=== PATIENT | female | born 1990 | race Caucasian/White ===

== ENCOUNTER 2022-11-11 11:50 | Emergency (ER) | payer MEDICAID, SELFPAY ==
[2022-11-11 12:00] VITALS: BP 118/64; PULSE 83; RESP 16; TEMP 36.2; O2SAT 95; BMI 24.5
--- NOTE | 2022-11-11 12:44 | ED_ITS ---
HPI - Nausea/Vomiting/Diarrhea General Date Seen: 11/11/22 Chief complaint: Nausea/Vomiting Stated complaint: Vomiting Time Seen by Provider: 11/11/22 11:55 Source: patient and family Mode of arrival: ambulatory Limitations: no limitations History of Present Illness HPI Narrative: Patient is seen with her significant other, with a history of a vomiting, no diarrhea, the vomiting is anywhere from 2-3 times per day whenever she eats. She is now 2 weeks into her , with her last normal menstrual period October 17. She notes that she has a slight headache also with vomiting, did not come on abruptly, but was slow. She is unable to take acetaminophen for her vomiting and headache, as this she is allergic to Pariacetamol. She is a 3 spontaneous vaginal delivery she did have vomiting with other pregnancies. These were in [place], she has recently moved to the area in the last year. Of currently in [place], she denies any fevers chills sore throat dysuria frequency, photophobia, neck pain or stiffness, The headache is bitemporal, she is not photophobic, with this MD elicited complaint: nausea, vomiting and other (Headache) Onset (ago): week(s) Description of vomiting: watery Associated nausea: Yes Associated abdominal pain: No Severity: moderate Exacerbating factors: eating Relieving factors: none Associated symptoms: headaches and nausea/vomiting Treatment prior to arrival: none Related Data Home Medications Medication Instructions Recorded Confirmed No Known Home Medications 11/11/22 11/11/22 Allergies Allergy/AdvReac Type Severity Reaction Status Date / Time No Known Drug Allergies Allergy Verified 11/11/22 12:10 Review of Systems Status of ROS: Reports: 10 or more systems reviewed and unremarkable except as noted in History and below GI: Reports: nausea PFSH PFSH Social History Smoking Status: Never smoker Do you use any of these nicotine containing products: None How often do you have a drink containing alcohol: never AUDIT-C Alcohol total score: 0 Non-prescribed substance use: denies use Exam Narrative: Exam Narrative: Patient is seen in room 5, with her partner and the petroleum inspector supervisor. She appears to be in no distress at all sitting up communicating normally nontoxic. Pupils are equal round reactive to light her fundi are normal her TMs are normal her neck is supple full range of motion is listed, with no meningismus. No lymphadenopathy anterior posterior chains her chest is clear heart sounds are normal, her abdomen is soft nongravid, she has an easily reducible umbilical hernia. Bowel sounds are normal there is no organomegaly. No CVA tenderness, moves all extremities independently well is able to walk in the room normally. And she is speaking Italian normally as far as I can see. Const: Vital Signs, click to edit/add: Vital Signs - 24 hr 11/11/22 12:00 Temperature 97.1 F L Pulse Rate [Left P ulse Oximeter] 83 Respiratory Rate 16 Blood Pressure [Le ft Upper Arm] 118/64 Pulse Oximetry 95 Oxygen Delivery Me thod Room Air Documenting provider has reviewed patient's vital signs: yes Course Course Hospital Course: Patient reports of vomiting a slight headache, headache came on after she had vomited 3 times a day for 10 days, not getting a feeling this is the worse headache of her life, or it is sudden onset. Is confounded by her allergy to acetaminophen, which causes a rash, would recommend that we try IV fluids Zofran check some labs, she is 3 weeks by her last normal menstrual period. She will need follow-up with OBGYN. Reevaluation(s) Reevaluation #1: Patient reports improvement we will give her a small supply Zofran along with Keflex, as most common cause would be the E coli, follow-up with the primary care OBGYN. Is suggested. Time: 14:56 Vital Signs Vital signs: Initial Vital Signs Temperature 97.1 F L 11/11/22 12:00 Temperature Source Temporal Artery Scan 11/11/22 12:00 Pulse Rate 83 11/11/22 12:00 Pulse Rhythm 11/11/22 12:00 Respiratory Rate 16 11/11/22 12:00 Blood Pressure 118/64 11/11/22 12:00 Blood Pressure Mean 82 11/11/22 12:00 Blood Pressure Position Sitting 11/11/22 12:00 Pulse Oximetry 95 11/11/22 12:00 Oxygen Delivery Method 11/11/22 12:00 Vital Signs Temperature 97.1 F L 11/11/22 12:00 Pulse Rate 83 11/11/22 12:00 Respiratory Rate 16 11/11/22 12:00 Blood Pressure 118/64 11/11/22 12:00 Pulse Oximetry 95 11/11/22 12:00 Oxygen Delivery Method 11/11/22 12:00 Temperature 97.1 F L 11/11/22 12:00 Pulse Rate 83 11/11/22 12:00 Respiratory Rate 16 11/11/22 12:00 Blood Pressure 118/64 11/11/22 12:00 Pulse Oximetry 95 11/11/22 12:00 Oxygen Delivery Method 11/11/22 12:00 MDM - Nausea/Vomiting/Diarrhea MDM Narrative Medical decision making narrative: Differential diagnosis includes but is not limited to viral gastroenteritis, drug food poisoning, pyloric stenosis, gastritis, pancreatitis, hepatitis, cholecystitis, appendicitis, bowel obstruction, hyperemesis, cyclic vomiting syndrome, bulimia nervosa, migraine headache, motion sickness and medication side effect. These include the life threatening complications of appendicitis, drug food poisoning and bowel obstruction. Lab Data Attestation: I reviewed the patient's lab results. Labs: Lab Results 11/11/22 11/11/22 11/11/22 Range/Units 12:29 12:29 12:52 WBC 9.62 (4.50-11.00) K/uL RBC 4.33 (4.00-5.20) m/uL Hgb 13.9 (12.0-16.0) gm/dL Hct 41.1 (33.0-51.0) % MCV 95 (80-100) fL MCH 32 (26-34) pg MCHC 34 (32-36) gm/dL RDW Coeff of Elizabeth 11.7 (11.5-15.5) % Plt Count 308 (140-440) K/uL Neut % (Auto) 75.8 H (42.0-72.0) % Lymph % (Auto) 17.0 L (20-44) % [place] % (Auto) 5.8 (0.0-11.0) % Eos % (Auto) 0.9 (0.0-7.0) % Baso % (Auto) 0.3 (0.0-3.0) % Neut # (Auto) 7.30 H (1.7-7.0) K/uL Lymph # (Auto) 1.60 (0.90-2.90) K/uL [place] # (Auto) 0.60 (0.00-0.90) K/UL Eos # (Auto) 0.09 (0.00-0.50) K/uL Baso # (Auto) 0.03 (0.00-0.30) K/uL Sodium (135-149) mmol/L Potassium (3.6-5.1) mmol/L Chloride (96-114) mmol/L Carbon Dioxide (20-32) mmol/L BUN (5-24) mg/dL Creatinine (0.5-1.5) mg/dL Estimated Creat Clear Estimated GFR ml/min Glucose (60-115) mg/dL Calcium (8.4-10.6) mg/dL Total Bilirubin (0.1-1.5) mg/dL Direct Bilirubin (0.0-0.5) mg/dL AST (12-35) U/L ALT (4-35) U/L Alkaline Phosphatase (40-150) U/L Total Protein (6.0-8.3) g/dL Albumin (3.3-5.0) g/dL Urine Color Yellow (Yellow) Urine Appearance Clear (Clear) Urine pH 6.0 (5.0-8.5) Ur Specific Sevier >= 1.030 (1.000-1.030) Urine Protein 1+ A (Negative) Urine Glucose (UA) Negative (Negative) Urine Ketones Negative (Negative) Urine Blood Trace-intact A (Negative) Urine Nitrite Negative (Negative) Urine Bilirubin Negative (Negative) Urine Urobilinogen 1.0 (0.2-1.0) Ur Leukocyte Esterase 1+ A (Negative) Urine RBC 2-5 A (0-2) Urine WBC 5-10 A (0-5) Ur Squamous Epith Cells Many A (None-Few) Urine Bacteria Moderate A (None) Urine Yeast Moderate A (None) SARS-CoV-2 (PCR) Negative SARS-CoV-2 (Negative) Influenza Type A (PCR) Negative PCR FLU A (Negative) Influenza Type B (PCR) Negative PCR FLU B (Negative) RSV (PCR) Negative PCR RSV (Negative) 11/11/22 Range/Units 12:52 WBC (4.50-11.00) K/uL RBC (4.00-5.20) m/uL Hgb (12.0-16.0) gm/dL Hct (33.0-51.0) % MCV (80-100) fL MCH (26-34) pg MCHC (32-36) gm/dL RDW Coeff of Elizabeth (11.5-15.5) % Plt Count (140-440) K/uL Neut % (Auto) (42.0-72.0) % Lymph % (Auto) (20-44) % [place] % (Auto) (0.0-11.0) % Eos % (Auto) (0.0-7.0) % Baso % (Auto) (0.0-3.0) % Neut # (Auto) (1.7-7.0) K/uL Lymph # (Auto) (0.90-2.90) K/uL [place] # (Auto) (0.00-0.90) K/UL Eos # (Auto) (0.00-0.50) K/uL Baso # (Auto) (0.00-0.30) K/uL Sodium 137 (135-149) mmol/L Potassium 3.8 (3.6-5.1) mmol/L Chloride 107 (96-114) mmol/L Carbon Dioxide 22 (20-32) mmol/L BUN 8 (5-24) mg/dL Creatinine 0.5 (0.5-1.5) mg/dL Estimated Creat Clear 124.15 Estimated GFR 129 ml/min Glucose 94 (60-115) mg/dL Calcium 8.9 (8.4-10.6) mg/dL Total Bilirubin 0.8 (0.1-1.5) mg/dL Direct Bilirubin 0.1 (0.0-0.5) mg/dL AST 28 (12-35) U/L ALT 39 H (4-35) U/L Alkaline Phosphatase 47 (40-150) U/L Total Protein 7.6 (6.0-8.3) g/dL Albumin 4.3 (3.3-5.0) g/dL Urine Color (Yellow) Urine Appearance (Clear) Urine pH (5.0-8.5) Ur Specific Sevier (1.000-1.030) Urine Protein (Negative) Urine Glucose (UA) (Negative) Urine Ketones (Negative) Urine Blood (Negative) Urine Nitrite (Negative) Urine Bilirubin (Negative) Urine Urobilinogen (0.2-1.0) Ur Leukocyte Esterase (Negative) Urine RBC (0-2) Urine WBC (0-5) Ur Squamous Epith Cells (None-Few) Urine Bacteria (None) Urine Yeast (None) SARS-CoV-2 (PCR) (Negative) Influenza Type A (PCR) (Negative) Influenza Type B (PCR) (Negative) RSV (PCR) (Negative) Discharge Plan Discharge Clinical Impression: UTI (urinary tract infection), Hyperemesis gravidarum, Headache Patient Disposition: Home, Self-Care Condition: Stable Instructions: Hyperemesis Gravidarum (ED), Urinary Tract Infection in Women (DC), General Headache (ED) Additional Instructions: Home rest prescription given for Zofran along with fluids, we will also treat the bladder infection, with Keflex, this should help both conditions, follow-up with primary care/furnace installer for further care. Return here if it worsening headache inability keep down fluids fevers chills or other issue. Prescriptions: No Action No Known Home Medications Stand Alone Forms: [employer] Info Instructions
[2022-11-11 12:45] LABS: Appearance Urine Clear (Clear); Bilirubin Urine Negative (Negative); Blood Urine Trace-intact (Negative); Color Urine Yellow (Yellow); Glucose Urine Negative (Negative); Ketones Urine Negative (Negative); Leukocyte Esterase Urine 1+ (Negative); Nitrite Urine Negative (Negative); Protein Urine 1+ (Negative); Specific Gravity Urine >= 1.030 (1.000-1.030)
[2022-11-11 13:05] LABS: Bacteria Urine Moderate; Squamous Epithelial Cell Urine Many (None-Few)
[2022-11-11] MEDS: ONDANSETRON 2 MG/ML inj 4 MG IVP (13:11)
[2022-11-11] MEDS: 0.9 % SODIUM CHLORIDE 1000 ml 1,000 ML IV ×2 (13:11→13:57)
[2022-11-11 13:12] LABS: Albumin* 4.3 g/dL (3.3-5.0); Chloride* 107 mmol/L (96-114); Sodium* 137 mmol/L (135-149)
[2022-11-11 13:13] LABS: Potassium* 3.8 mmol/L (3.6-5.1)
[2022-11-11 13:15] LABS: Alanine Aminotransferase* 39 U/L (4-35); Alkaline Phosphatase* 47 U/L (40-150); Aspartate Amino Transferase* 28 U/L (12-35); Bilirubin Direct* 0.1 mg/dL (0.0-0.5); Bilirubin Total* 0.8 mg/dL (0.1-1.5); Blood Urea Nitrogen* 8 mg/dL (5-24); Calcium* 8.9 mg/dL (8.4-10.6); Carbon Dioxide* 22 mmol/L (20-32); Creatinine* 0.5 mg/dL (0.5-1.5); Est. Creatinine Clearance* 124.15; Estimated Glomerular Filt Rate 129 ml/min; Glucose* 94 mg/dL (60-115); Total Protein* 7.6 g/dL (6.0-8.3)
[2022-11-11 13:18] LABS: Basophils Absolute Auto 0.03 K/uL (0.00-0.30); Basophils Percent Auto 0.3 % (0.0-3.0); Eosinophils Absolute Auto 0.09 K/uL (0.00-0.50); Eosinophils Percent Auto 0.9 % (0.0-7.0); Hematocrit 41.1 % (33.0-51.0); Hemoglobin* 13.9 gm/dL (12.0-16.0); Immature Granulocytes Abs Auto 0.02 K/uL (0.00-0.30); Immature Granulocytes Pct Auto 0.2 %; Mean Corpuscular HGB Conc 34 gm/dL (32-36); Mean Corpuscular Hemoglobin 32 pg (26-34); Mean Corpuscular Volume 95 fL (80-100); Monocytes Percent Auto 5.8 % (0.0-11.0); Neutrophils Percent Auto 75.8 % (42.0-72.0); Platelet Count* 308 K/uL (140-440); RDW Coefficient of Variation % 11.7 % (11.5-15.5); Red Blood Count 4.33 m/uL (4.00-5.20); White Blood Count* 9.62 K/uL (4.50-11.00)
[2022-11-11 13:19] LABS: Slide Review Reflex No
[2022-11-11 13:20] LABS: PCR FLU A Negative PCR FLU A (Negative); PCR FLU B Negative PCR FLU B (Negative); PCR RSV Negative PCR RSV (Negative)
[2022-11-11 13:27] LABS: SARS PCR* Negative SARS-CoV-2 (Negative)
== END 2022-11-11 14:51 | disposition home or self-care (01) ==
PROVIDERS: Emergency Provider Family Medicine
DX: N39.0 Urinary tract infection, site not specified (principal); O21.0 Mild hyperemesis gravidarum; R51.9 Headache, unspecified
CPT/HCPCS: 36415; 80048; 80076; 81001; 85025; 87086; 87502; 87634; 87635; 96374; 99283; 99284; J2405; J7030

== ENCOUNTER 2022-11-23 18:33 | Emergency (ER) | payer MEDICAID, SELFPAY ==
[2022-11-23 19:10] VITALS: BP 104/61; PULSE 60; RESP 14; TEMP 37.1; O2SAT 98; BMI 27.3
--- NOTE | 2022-11-23 20:05 | ED.HA ---
HPI - Headache General Chief Complaint: Headache/Migraine Stated Complaint: Head pain Time Seen by Provider: 11/23/22 19:54 History of Present Illness HPI Narrative: Pt is a 32 year old woman who is 8 weeks who presents with several hours of a bitemperal headache. She has no neurological symptoms. No fevers or chills. Pt has no abd pain or vaginal discharge. Pt otherwise is tolerating her well although she was in the ED 2 weeks ago for similar reasons. Pt had largely unremarkable CBC and CMP and did well with IV saline and zofran. Pt has a hisotory of hyperemesis gravidarum. Pt states she just needs help with the headache and really has no other concerns. No vomiting. Related Data Home Medications Medication Instructions Recorded Confirmed No Known Home Medications 11/11/22 11/11/22 Allergies Allergy/AdvReac Type Severity Reaction Status Date / Time acetaminophen AdvReac Unknown Rash Verified 11/23/22 19:15 Review of Systems Status of ROS: Reports: 10 or more systems reviewed and unremarkable except as noted in History and below PFSH PFSH Social History Smoking Status: Former smoker Do you use any of these nicotine containing products: None How often do you have a drink containing alcohol: monthly or less AUDIT-C Alcohol total score: 1 Non-prescribed substance use: denies use Exam Narrative: Exam Narrative: EXAM GENERAL: Patient appears comfortable and well. EYES: No scleral icterus. ENT: Tympanic membranes and oropharynx normal. THYROID: no thyroid nodules or thyromegaly. LYMPH: No supraclavicular or cervical lymphadenopathy. SKIN: Visible skin seen during exam normal or with benign process only. EXT: No dependent lower extremity pedal edema. HEART: Regular rate and rhythm with no murmurs, rubs, or gallops. LUNGS: Clear to auscultation bilaterally with no crackles or wheezes. ABD: Soft, non tender, non distended. PSYCH: Good eye contact, speech is not pressured. Const: Vital Signs, click to edit/add: Vital Signs - 24 hr 11/23/22 19:10 Temperature 98.8 F Pulse Rate [Pulse Oximeter] 60 Respiratory Rate 14 Blood Pressure [Ri ght Upper Arm] 104/61 Pulse Oximetry 98 Oxygen Delivery Me thod Room Air Course Course Hospital Course: Saline lock placed. Normal saline and Zofran given. Previous labs reviewed. She was treated for a UTI at her last visit. Pt has no urinary symptoms at this time. Reevaluation(s) Reevaluation #1: Pt feels much better after the IV fluid and Zofran. She would like to go home. Time: 21:18 Vital Signs Vital signs: Initial Vital Signs Temperature 98.8 F 11/23/22 19:10 Temperature Source Temporal Artery Scan 11/23/22 19:10 Pulse Rate 60 11/23/22 19:10 Pulse Rhythm 11/23/22 19:10 Respiratory Rate 14 11/23/22 19:10 Blood Pressure 104/61 11/23/22 19:10 Blood Pressure Mean 75 11/23/22 19:10 Blood Pressure Position Sitting 11/23/22 19:10 Pulse Oximetry 98 11/23/22 19:10 Oxygen Delivery Method 11/23/22 19:10 Vital Signs Temperature 98.8 F 11/23/22 19:10 Pulse Rate 60 11/23/22 19:10 Respiratory Rate 14 11/23/22 19:10 Blood Pressure 104/61 11/23/22 19:10 Pulse Oximetry 98 11/23/22 19:10 Oxygen Delivery Method 11/23/22 19:10 Temperature 98.8 F 11/23/22 19:10 Pulse Rate 60 11/23/22 19:10 Respiratory Rate 14 11/23/22 19:10 Blood Pressure 104/61 11/23/22 19:10 Pulse Oximetry 98 11/23/22 19:10 Oxygen Delivery Method 11/23/22 19:10 MDM - Headache MDM Narrative Medical decision making narrative: Pt is a woman who presents with headache and nausea. No other significant symptoms. Exam and vitals are normal. Pt's symptoms respond to IV fluids and Zofran. I did recommend a vitamin and follow up [facility]. Differential Diagnosis Differential diagnosis: Likely migraine, tension headache, subarachnoid hemorrhage, headache, meningitis and sinusitis Discharge Plan Discharge Clinical Impression: Headache Condition: Stable Instructions: Acute Headache (ED) Additional Instructions: Begin Vitamin Follow up with Dr. Flor. Activity Level: No Restrictions Discharge Diet: Regular Prescriptions: No Action No Known Home Medications Follow Up/Referrals: Provider,Not a Local [Primary Care Provider] - Stand Alone Forms: [employer] Info Instructions
[2022-11-23] MEDS: 0.9 % SODIUM CHLORIDE 1000 ml 1,000 ML IV (20:27)
[2022-11-23] MEDS: ONDANSETRON 2 MG/ML inj 4 MG IVP (20:28)
== END 2022-11-23 22:10 | disposition home or self-care (01) ==
PROVIDERS: Emergency Provider Internal Medicine
DX: R51.9 Headache, unspecified (principal); Z3A.08 8 weeks gestation of pregnancy
CPT/HCPCS: 96374; 99283; J2405; J7030

== ENCOUNTER 2022-12-06 22:07 | Emergency (ER) | payer MEDICAID, SELFPAY ==
[2022-12-06 22:14] VITALS: BP 116/75; PULSE 55; RESP 16; TEMP 36.2; O2SAT 98; BMI 23.0
[2022-12-06] MEDS: PANTOPRAZOLE SODIUM 40 MG INJ IVP (23:11)
[2022-12-06] MEDS: 0.9 % SODIUM CHLORIDE 1000 ml 1,000 ML IV (23:11)
--- NOTE | 2022-12-06 23:17 | ED_ITS ---
HPI - General Adult General Chief complaint: Abdominal Pain Stated complaint: headache,vomitting Time Seen by Provider: 12/06/22 22:11 Source: patient and family Mode of arrival: ambulatory History of Present Illness HPI narrative: Patient presents for her 3rd visit in the past month for headache to the emergency department. She reports that she is allergic to Tylenol, it causes rash. She is a , unsure of her gestational age but estimates that she is about 3 months . She denies struggling with headaches in her prior pregnancies. Headache is located in the occipital region, no neck pain, no vision changes, no neurological changes no history of migraines. She states that the headache has been causing nausea. It has been reported that she has had nausea and vomiting in prior notes as well. She states that she started having a slight amount of blood-tinged vomit. reports that she can swallow her own saliva is very nauseated. She is not taking any stomach acid medicine like omeprazole or ranitidine. Admits to poor oral intake. No fever, no trauma or injury. She reports some mild left lower periumbilical abdominal pain. Last bowel movement was today, no blood in stools. Does not use any anticoagulants. No vaginal discharge, no vaginal bleeding. No dysuria. Has not tried any interventions to help with her stomach or headache pain. She does have an upcoming OB visit in 12 days. Past medical history reviewed from prior notes, no major long-term health problems. Allergy years to Tylenol. Denies prior surgeries. Her only current home medication is folic acid. Socially no tobacco, no pertinent travel. ROS notable for the HEENT and GI symptoms as described above, otherwise denies times 12 systems. Related Data Home Medications Medication Instructions Recorded Confirmed folic acid 400 mcg tablet 400 mcg PO DAILY 12/06/22 12/06/22 Previous Rx's Medication Instructions Recorded omeprazole 20 mg capsule,delayed 20 mg PO DAILY #30 caps 12/07/22 release Allergies Allergy/AdvReac Type Severity Reaction Status Date / Time acetaminophen AdvReac Unknown Rash Verified 11/23/22 19:15 PFSH [facility] Social History Smoking Status: Never smoker Do you use any of these nicotine containing products: None How often do you have a drink containing alcohol: never AUDIT-C Alcohol total score: 0 Non-prescribed substance use: denies use Exam Const: Vital Signs, click to edit/add: Vital Signs - 24 hr 12/06/22 22:14 Temperature 97.1 F L Pulse Rate [Right Pulse Oximeter] 55 L Respiratory Rate 16 Blood Pressure [Ri ght Upper Arm] 116/75 Pulse Oximetry 98 Oxygen Delivery Me thod Room Air Documenting provider has reviewed patient's vital signs: yes Common normals: no apparent distress and alert General appearance: cooperative Orientation/consciousness: Yes awake Other: She is very vague in answering her questions, tries to answer for her when she appears too fatigued to answer. She appears well-nourished and well- hydrated. No obvious signs of outward trauma. HENMT: Common normals: normocephalic and head/scalp atraumatic Head and scalp: normocephalic and atraumatic Mouth: oral and palatal mucosa normal Throat: posterior oropharynx normal Eye: Common normals: EOMs intact bilaterally and conjunctivae normal Gen eral eye: normal appearance of both eyes Conjunctiva: conjunctiva(e) normal Neck & C-Spine: Common normals: full ROM, no lymphadenopathy and no meningeal signs Resp: Common normals: normal respiratory effort, no use of accessory muscles and clear to auscultation bilaterally Effort & inspection: able to speak in complete sentences Auscultation: clear to auscultation bilaterally Cardio: Common normals: regular rate, regular rhythm, S1 normal heart sound and S2 normal heart sound Rate: regular rate Rhythm: regular rhythm Heart sounds: S1 normal and S2 normal GI: Other: Abdomen is gravid, fundal height just palpable above the pubic brim. It is nontender fundus. There is a slight umbilical hernia but no incarceration. Bowel sounds are normoactive in all 4 quadrants. No mass, no hepatospl enomegaly. Extremity: Common normals: normal to inspection and no pedal edema Neuro: Sensorium/orientation: awake and alert Meningeal signs: no meningeal signs Motor exam: strength 5/5 throughout and no tremor noted Psych: Appearance: grossly normal Attitude: withdrawn Mood and affect: flat affect Insight: fair Judgement: fair Skin: Common normals: no rashes or lesions noted General skin exam: no rashes or lesions noted Course Vital Signs Vital signs: Initial Vital Signs Temperature 97.1 F L 12/06/22 22:14 Temperature Source Temporal Artery Scan 12/06/22 22:14 Pulse Rate 55 L 12/06/22 22:14 Pulse Rhythm 12/06/22 22:14 Respiratory Rate 16 12/06/22 22:14 Blood Pressure 116/75 12/06/22 22:14 Blood Pressure Mean 88 12/06/22 22:14 Pulse Oximetry 98 12/06/22 22:14 Oxygen Delivery Method 12/06/22 22:14 Vital Signs Temperature 97.1 F L 12/06/22 22:14 Pulse Rate 55 L 12/06/22 22:14 Respiratory Rate 16 12/06/22 22:14 Blood Pressure 116/75 12/06/22 22:14 Pulse Oximetry 98 12/06/22 22:14 Oxygen Delivery Method 12/06/22 22:14 Temperature 97.1 F L 12/06/22 22:14 Pulse Rate 55 L 12/06/22 22:14 Respiratory Rate 16 12/06/22 22:14 Blood Pressure 116/75 12/06/22 22:14 Pulse Oximetry 98 12/06/22 22:14 Oxygen Delivery Method 12/06/22 22:14 Medical Decision Making MDM Narrative Medical decision making narrative: Prior notes reviewed. Patient demonstrates spitting up clear saliva in the exam, no bilious retching. There is a scant amount of slightly blood-tinged mucus see material in an emesis bag. No blood clots, no persistent bleeding. Counseled patient that there are not a lot of great options for pain control if she is allergic to Tylenol at this stage of . Recommended a L of IV fluid, a trial of Reglan answer Protonix for her stomach. If she tolerates this well, she could potentially discharge on a low dose of Flexeril. Encouraged her to make a sooner follow-up appointment with her Ob provider to discuss the long- term plan. She will need omeprazole for at least the next couple of weeks due to the blood-tinged emesis. If persistent bleeding, may need an endoscopy. Update: Patient is still spitting out her saliva but has not demonstrated any vomiting in the 2 hours that she has been here. After fluids, she does report some improvement in her headache. An obviously she is no longer vomiting. We discussed long-term plans including restarting the Zofran that was working well for her. She needs to follow up with her obstetrical provider if she continues to have problems. Because she had the slight amount of blood-tinged vomit, I would like for her to be on a proton pump inhibitor for 2 weeks. This was discussed with her and a prescription is provided. Zofran from [place] [facility] given. May take as soon as she gets home if her nausea is not controlled by the Reglan. All questions answered, video separating machine operator used. Alarm symptoms that would warrant repeat evaluation were reviewed with patient and significant other. Discharge Plan Discharge Clinical Impression: Nausea and vomiting during , Headache in Patient Disposition: Home w/ Parent or Adult Condition: Improved Instructions: Nausea and Vomiting in (ED) Additional Instructions: I am glad that the headache is feeling a little better after the medication and fluids. It will take a couple of hours to get full effect. I believe that combatting your nausea and vomiting will help your headache the most. If you get dehydrated, your headache will worsen. You were given a medicine called Reglan and IV fluids as well as the stomach acid medicine in the emergency department. I will also give you another medication for nausea which is known as Zofran. You have been given this previously as well. I will give you a limited supply from the vending machine in the lobby for [employer], you may take more as soon as you get home if you are still feeling nauseated. You may take 3 times a day as needed for nausea. If you need more, you need to call your Ob provider for this. Because you had a little bit of blood tinge to the vomit, I do recommend that you take a stomach acid medicine once daily for the next couple of weeks. You may stay on it longer as it is determined to be safe in if you need to. I am hoping that you feel better in a few weeks as you will be at a later stage in your . Please talk to your Ob provider if you continue to have difficulties. Me alegro de que el dolor de luis alfredo se sienta un poco mejor despu?s de la medi caci?n y los l?quidos. Tardar? un par de horas en obtener el efecto completo. Creo que combatir las n?useas y los v?mitos ayudar? m?s a tu dolor de luis alfredo. Si te deshidratas, tu dolor de luis alfredo empeorar?. Le dieron un medicamento llamado Reglan y l?quidos intravenosos, as? osvaldo tambi?n el medicamento para el ?cido estomacal en el departamento de emergencias. Tambi?n le izaiah? otro medicamento para las n?useas que se conoce osvaldo Zofran. Tambi?n se te robin dado esto anteriormente. Le izaiah? un suministro limitado de la m?quina expendedora en el vest?bulo para esta noche, puede juan antonio m?s hebert pronto osvaldo llegue a casa si todav?a siente n?useas. Puede juan antonio 3 veces al d?a seg?n sea necesario para las n?useas. Si necesita m?s, debe llamar a locke proveedor de Ob para esto. Debido a que ten?a un poco de bernice en el v?bruce, le recomiendo que tome un medicamento para el ?cido estomacal mary kate vez al d?a lisa las pr?ximas dos semanas. Puede permanecer m?s tiempo, ya que se determina que es seguro lisa el embarazo si es necesario. Espero que se sienta mejor en unas pocas semanas, ya que estar? en mary kate etapa posterior de locke embarazo. Hable con locke proveedor de obstetricia si contin?a teniendo dificultades. Activity Level: No Restrictions Discharge Diet: Regular Prescriptions: New omeprazole 20 mg capsule,delayed release(DR/EC) 20 mg PO DAILY Qty: 30 0RF No Action folic acid 400 mcg tablet 400 mcg PO DAILY Follow Up/Referrals: Provider,Not a Local [Primary Care Provider] - Stand Alone Forms: [facility] Info Instructions
[2022-12-06] MEDS: METOCLOPRAMIDE HCL 10 MG in 0.9 % SODIUM CHLORIDE 100 ml 100 ML 306 MG IVPB (23:45)
[2022-12-07 00:37] VITALS: BP 114/62; PULSE 65; RESP 16; O2SAT 100
== END 2022-12-07 00:39 | disposition home or self-care (01) ==
PROVIDERS: Emergency Provider Family Medicine
DX: R11.2 Nausea with vomiting, unspecified (principal); R51.9 Headache, unspecified; Z3A.00 Weeks of gestation of pregnancy not specified
CPT/HCPCS: 96365; 96375; 99283; 99284; C9113; J2765; J7030

== ENCOUNTER 2023-01-22 17:15 | Emergency (ER) | payer BC, SELFPAY ==
[2023-01-22 17:18] VITALS: BP 96/59; PULSE 70; RESP 18; TEMP 36.1; O2SAT 97; BMI 26.6
[2023-01-22 17:36] LABS: Appearance Urine Clear (Clear); Bilirubin Urine Negative (Negative); Blood Urine Negative (Negative); Color Urine Yellow (Yellow); Glucose Urine Negative (Negative); Ketones Urine Negative (Negative); Leukocyte Esterase Urine 1+ (Negative); Nitrite Urine Negative (Negative); Protein Urine Negative (Negative)
[2023-01-22 17:49] LABS: RBC Urine 0-2 (0-2)
[2023-01-22 17:50] LABS: Bacteria Urine Few; Squamous Epithelial Cell Urine Few (None-Few)
--- NOTE | 2023-01-22 17:56 | ED.ABDPAIN ---
HPI - Abdominal Pain General Chief Complaint: Abdominal Pain Stated Complaint: abdominal pain (4 months ) Time Seen by Provider: 01/22/23 17:26 History of Present Illness HPI narrative: This 32-year-old female comes in reporting abdominal pain and low back pain. She is 16 weeks . She also has some nausea and vomiting but this is not new for her during this . She is taking a medicine for her nausea and vomiting. She states that she did slip in the shower a couple days ago and this may have triggered some of her symptoms which have become more notable today. She is otherwise in good health. She denies having any symptoms of dysuria. She has not had any fevers. Related Data Home Medications Medication Instructions Recorded Confirmed folic acid 400 mcg tablet 400 mcg PO DAILY 12/06/22 01/16/23 docosahexaenoic acid 200 mg mg PO 12/19/22 01/16/23 capsule ( DHA) ondansetron 4 mg disintegrating 4 mg PO Q8H 12/19/22 01/16/23 tablet Previous Rx's Medication Instructions Recorded omeprazole 20 mg capsule,delayed 20 mg PO DAILY #30 caps 12/07/22 release ondansetron 4 mg disintegrating 4 mg PO Q6H PRN nausea and 12/19/22 tablet vomiting #30 tabs prochlorperazine maleate 5 mg 5 mg PO Q6-8H PRN nausea and 12/25/22 tablet (Compazine) vomiting #30 tabs metoclopramide HCl 10 mg tablet 10 mg PO Q6H PRN headache #30 tabs 01/16/23 (Reglan) Allergies Allergy/AdvReac Type Severity Reaction Status Date / Time aspirin Allergy Intermediate Rash Verified 01/16/23 09:48 acetaminophen AdvReac Unknown Rash Verified 01/16/23 09:48 Review of Systems Status of ROS Reports: 10 or more systems reviewed and unremarkable except as noted in History and below Narrative Constitutional: No fevers, no weight gain or loss. Eyes: No discharge. No vision changes. HENT: No congestion, no sore throat, no ear pain. Cardiovascular: No chest pain, no palpitations. Respiratory: No shortness of breath, no wheezes, no cough. Gastrointestinal: Abdominal pain and back pain. Nausea with vomiting. No diarrhea. Genitourinary: No dysuria, no hematuria. Musculoskeletal: Normal range of motion. Skin: No rashes, no pruritis. Neurological: No dizziness, weakness, sensory change, speech change. Endo/Heme/Allergies: No bruising or bleeding. No polydipsia. Pysch: no suicidality, no anxiety, no insomnia. All other systems reviewed and are negative. [facility] Social History Smoking Status: Never smoker Do you use any of these nicotine containing products: None How often do you have a drink containing alcohol: never AUDIT-C Alcohol total score: 0 Non-prescribed substance use: denies use Little interest or pleasure in doing things: more than half the days Feeling down, depressed, or hopeless: several days Exam Narrative: Exam Narrative: Constitutional: Well-developed, well-nourished, no acute distress. HEENT: Normocephalic, atraumatic. Neck: Normal range of motion. Nontender. Supple. Heart: Regular. No murmurs. Normal rate. Intact distal pulses. Lungs: Clear to auscultation. No chest discomfort. No wheezes, rhonchi, or rales. Abdomen: Normal bowel sounds. Diffuse tenderness in the lower abdomen. No rebound tenderness. Genitalia: Deferred. Back: No midline tenderness. Normal range of motion. Extremities: Normal range of motion. No injury. Skin: Intact. No rash. Warm. No erythema or pallor. Neurologic: No altered sensation. No weakness. Alert and oriented. Psychiatric: No suicidality. No anxiety or depression. No insomnia. Nursing notes and vitals signs are reviewed. Const: Vital Signs, click to edit/add: Vital Signs - 24 hr 01/22/23 17:18 Temperature 97.0 F L Pulse Rate [Right Pulse Oximeter] 70 Respiratory Rate 18 Blood Pressure [Ri ght Upper Arm] 96/59 L Pulse Oximetry 97 Oxygen Delivery Me thod Room Air Course Vital Signs Vital signs: Initial Vital Signs Temperature 97.0 F L 01/22/23 17:18 Temperature Source Temporal Artery Scan 01/22/23 17:18 Pulse Rate 70 01/22/23 17:18 Respiratory Rate 18 01/22/23 17:18 Blood Pressure 96/59 L 01/22/23 17:18 Blood Pressure Mean 71 01/22/23 17:18 Blood Pressure Position Sitting 01/22/23 17:18 Pulse Oximetry 97 01/22/23 17:18 Oxygen Delivery Method Room Air 01/22/23 17:18 Vital Signs Temperature 97.0 F L 01/22/23 17:18 Pulse Rate 70 01/22/23 17:18 Respiratory Rate 18 01/22/23 17:18 Blood Pressure 96/59 L 01/22/23 17:18 Pulse Oximetry 97 01/22/23 17:18 Oxygen Delivery Method Room Air 01/22/23 17:18 Temperature 97.0 F L 01/22/23 17:18 Pulse Rate 70 01/22/23 17:18 Respiratory Rate 18 01/22/23 17:18 Blood Pressure 96/59 L 01/22/23 17:18 Pulse Oximetry 97 01/22/23 17:18 Oxygen Delivery Method Room Air 01/22/23 17:18 MDM - Abdominal Pain MDM Narrative Medical decision making narrative: This patient comes in with abdominal pain and low back pain and is 16 weeks . She did for slip in the shower a couple days ago and may have strained some muscles. I did use bedside ultrasound to see normal anatomy and activity. Additionally urinalysis shows no sign of infection. The patient is at a age of gestation in her where she may be having some ligament pain as the uterus is growing. These results are reassuring to the patient. She is okay to be discharged home and encouraged use Tylenol as needed and directed. Lab Data Labs: Lab Results 01/22/23 Range/Units 17:25 Urine Color Yellow (Yellow) Urine Appearance Clear (Clear) Urine pH 7.0 (5.0-8.5) Ur Specific [place] 1.020 (1.000-1.030) Urine Protein Negative (Negative) Urine Glucose (UA) Negative (Negative) Urine Ketones Negative (Negative) Urine Blood Negative (Negative) Urine Nitrite Negative (Negative) Urine Bilirubin Negative (Negative) Urine Urobilinogen 1.0 (0.2-1.0) Ur Leukocyte Esterase 1+ A (Negative) Urine RBC 0-2 (0-2) Urine WBC 2-5 (0-5) Ur Squamous Epith Cells Few (None-Few) Urine Bacteria Few A (None) Discharge Plan Discharge Clinical Impression: , Abdominal pain Patient Disposition: Home, Self-Care Condition: Unchanged Additional Instructions: Use Tylenol as needed and directed. Follow up with MD or return if worsening. Prescriptions: No Action metoclopramide HCl [Reglan] 10 mg tablet 10 mg PO Q6H PRN (Reason: headache) Qty: 30 2RF ondansetron 4 mg tablet,disintegrating 4 mg PO Q8H DHA 200 mg capsule PO ondansetron 4 mg tablet,disintegrating 4 mg PO Q6H PRN (Reason: nausea and vomiting) Qty: 30 2RF folic acid 400 mcg tablet 400 mcg PO DAILY omeprazole 20 mg capsule,delayed release(DR/EC) 20 mg PO DAILY Qty: 30 0RF prochlorperazine maleate [Compazine] 5 mg tablet 5 mg PO Q6-8H MDD 40mg PRN (Reason: nausea and vomiting) Qty: 30 0RF Rx Instructions: 5-10mg every 6-8hr PRN headaches and nausea. Max 40mg/day. Follow Up/Referrals: Provider,Not a Local [Primary Care Provider] - Stand Alone [facility] Inst[facility] Procedures Ultrasound Other exam #1: Anatomical areas examined: at 16 weeks gestation. Description/findings: Normal and heart activity
== END 2023-01-22 18:24 | disposition home or self-care (01) ==
PROVIDERS: Emergency Provider Emergency Medicine Emergency Medical Services
DX: R10.9 Unspecified abdominal pain (principal); Z33.1 Pregnant state, incidental; Z3A.16 16 weeks gestation of pregnancy
CPT/HCPCS: 81003; 81015; 87086; 99283; 99284

== ENCOUNTER 2023-02-06 08:16 | Outpatient (CLI) | payer BC, SELFPAY ==
--- NOTE | 2023-02-06 08:15 | CRLHL7_ITS ---
For Patients: As a result of the Century Cures Act, medical imaging exams and procedure reports are released immediately into your electronic medical record. You may view this report before your referring provider. If you have questions, please contact your health care provider. INDICATION: Evaluate anatomy. COMPARISON: 12/19/2022 TECHNIQUE: Real time thrasher scale imaging of the fetus was performed as well as color Doppler analysis of the umbilical vessels. FINDINGS: Sonographic imaging demonstrates a single living intrauterine gestation. Fetus demonstrates a regular cardiac rate of 141 beats per minute. Fetus has a longitudinal breech position. The placenta lies along the right uterine wall without evidence of placenta previa. The placental edge is located 6.8 cm from the internal cervical os. Amniotic fluid volume appears normal. Single deepest vertical pocket: 4.3 cm. The cervix is closed and measures 4.1 cm in length. The composite ultrasound gestational age is calculated at 20 weeks 2 days with an estimated sonographic due date of 06/24/2023. The estimated weight is 336 grams which lies at the 39th %. The following biometric measurements were obtained: Biparietal diameter: 4.8 cm/20 weeks 4 days 59th% Head circumference: 17.6 cm/20 weeks 1 day 33rd% Abdominal circumference: 15.4 cm/20 weeks 4 days 53rd% Femur length: 3.1 cm/19 weeks 5 days 22nd% The HC/AC ratio measures: 1.14 range (1.07-1.25) On anatomic survey, there is a normal appearance of the cerebral ventricles, cavum septi pellucidi, cisterna magna and cerebellum. The nose, lips, and facial profile appear normal. The cervical, thoracic and lumbar spine are well visualized and appear normal. There is a normal four-chamber heart view and the left and right ventricular outflow tracts appear normal. The diaphragm and stomach appear normal. The kidneys and bladder also appear normal. There is a normal three-vessel cord and cord insertion site. The four extremities appear normal. IMPRESSION: Normal OB ultrasound exam with concordance of clinical and sonographic dating. No intrinsic abnormalities noted on anatomic survey. Dictated by Musa José MD @ 02/06/2023 10:04:41 AM (Electronically Signed)
== END 2023-02-06 08:17 | disposition home or self-care (01) ==
PROVIDERS: Visit Provider Advanced Practice Midwife
DX: Z34.92 Encounter for supervision of normal pregnancy, unspecified, second trimester (principal); Z3A.20 20 weeks gestation of pregnancy
CPT/HCPCS: 76805; T1013

== ENCOUNTER 2023-03-04 15:33 | Emergency (ER) | payer BC, SELFPAY ==
[2023-03-04 15:38] VITALS: BP 98/60; PULSE 70; RESP 16; TEMP 36.2; O2SAT 97; BMI 25.2
[2023-03-04 15:59] LABS: Appearance Urine Cloudy (Clear); Bilirubin Urine Negative (Negative); Blood Urine 1+ (Negative); Color Urine Yellow (Yellow); Glucose Urine Negative (Negative); Ketones Urine Negative (Negative); Leukocyte Esterase Urine 1+ (Negative); Nitrite Urine Positive (Negative); Protein Urine 1+ (Negative); Specific Gravity Urine 1.025 (1.000-1.030); Urobilinogen Urine 0.2 (0.2-1.0)
--- NOTE | 2023-03-04 16:10 | ED_ITS ---
HPI - Abdominal Pain General Chief Complaint: Abdominal Pain Stated Complaint: Abdominal and back pain Time Seen by Provider: 03/04/23 15:50 History of Present Illness HPI narrative: This 32-year-old female is 22 weeks and comes in reporting low back pain and lower abdominal pain that began yesterday. She does not report any strenuous activity or injury event to bring this on. The pain does not radiate down either leg. She does not have any fevers. She does report some dysuria symptoms including increased frequency and discomfort when voiding urine. Related Data Home Medications Medication Instructions Recorded Confirmed folic acid 400 mcg tablet 400 mcg PO DAILY 12/06/22 03/04/23 docosahexaenoic acid 200 mg 200 mg PO DAILY 12/19/22 03/04/23 capsule ( DHA) Previous Rx's Medication Instructions Recorded prochlorperazine maleate 5 mg 5 mg PO Q6-8H PRN nausea and 12/25/22 tablet (Compazine) vomiting #30 tabs metoclopramide HCl 10 mg tablet 10 mg PO Q6H PRN headache #30 tabs 01/16/23 (Reglan) cephalexin 500 mg capsule 500 mg PO TID 7 days #21 caps 03/04/23 Allergies Allergy/AdvReac Type Severity Reaction Status Date / Time aspirin Allergy Intermediate Rash Verified 03/04/23 15:48 acetaminophen AdvReac Unknown Rash Verified 03/04/23 15:48 Review of Systems Status of ROS Reports: 10 or more systems reviewed and unremarkable except as noted in History and below Narrative Constitutional: No fevers, no weight gain or loss. Eyes: No discharge. No vision changes. HENT: No congestion, no sore throat, no ear pain. Cardiovascular: No chest pain, no palpitations. Respiratory: No shortness of breath, no wheezes, no cough. Gastrointestinal: No vomiting, no diarrhea. Lower abdominal pain and associated low back pain. Genitourinary: No dysuria, no hematuria. Musculoskeletal: Normal range of motion. Skin: No rashes, no pruritis. Neurological: No dizziness, weakness, sensory change, speech change. Endo/Heme/Allergies: No bruising or bleeding. No polydipsia. Pysch: no suicidality, no anxiety, no insomnia. All other systems reviewed and are negative. PFSH PFSH Social History Smoking Status: Former smoker Do you use any of these nicotine containing products: None Second hand tobacco smoke exposure: No How often do you have a drink containing alcohol: never How often do you have six or more drinks on one occasion: Never AUDIT-C Alcohol total score: 0 Non-prescribed substance use: denies use Little interest or pleasure in doing things: more than half the days Feeling down, depressed, or hopeless: several days service: No Exam Narrative: Exam Narrative: Constitutional: Well-developed, well-nourished, no acute distress. HEENT: Normocephalic, atraumatic. Neck: Normal range of motion. Nontender. Supple. Heart: Regular. No murmurs. Normal rate. Intact distal pulses. Lungs: Clear to auscultation. No chest discomfort. No wheezes, rhonchi, or rales. Abdomen: Normal bowel sounds. Gravid. Tenderness in the lower abdomen. Genitalia: Deferred. Back: No midline tenderness. Normal range of motion. Extremities: Normal range of motion. No injury. Skin: Intact. No rash. Warm. No erythema or pallor. Neurologic: No altered sensation. No weakness. Alert and oriented. Psychiatric: No suicidality. No anxiety or depression. No insomnia. Nursing notes and vitals signs are reviewed. Const: Vital Signs, click to edit/add: Vital Signs - 24 hr 03/04/23 15:38 Temperature 97.1 F L Pulse Rate [Right Pulse Oximeter] 70 Respiratory Rate 16 Blood Pressure [Ri ght Upper Arm] 98/60 Pulse Oximetry 97 Oxygen Delivery Me thod Room Air Course Vital Signs Vital signs: Initial Vital Signs Temperature 97.1 F L 03/04/23 15:38 Temperature Source Temporal Artery Scan 03/04/23 15:38 Pulse Rate 70 03/04/23 15:38 Respiratory Rate 16 03/04/23 15:38 Blood Pressure 98/60 03/04/23 15:38 Blood Pressure Mean 72 03/04/23 15:38 Blood Pressure Position Sitting 03/04/23 15:38 Pulse Oximetry 97 03/04/23 15:38 Oxygen Delivery Method Room Air 03/04/23 15:38 Vital Signs Temperature 97.1 F L 03/04/23 15:38 Pulse Rate 70 06/12/23 15:38 Respiratory Rate 16 03/04/23 15:38 Blood Pressure 98/60 03/04/23 15:38 Pulse Oximetry 97 03/04/23 15:38 Oxygen Delivery Method Room Air 03/04/23 15:38 Temperature 97.1 F L 03/04/23 15:38 Pulse Rate 70 03/04/23 15:38 Respiratory Rate 16 03/04/23 15:38 Blood Pressure 98/60 03/04/23 15:38 Pulse Oximetry 97 03/04/23 15:38 Oxygen Delivery Method Room Air 03/04/23 15:38 MDM - Abdominal Pain MDM Narrative Medical decision making narrative: This 32-year-old female comes in with low back pain and abdominal pain. She wonders if she might have a urinary tract infection as she does have some symptoms of dysuria. Urinalysis does confirm evidence of infection. The patien t was reassured with ultrasound images of her . She did receive an intramuscular injection of Toradol 15 mg. A prescription for Keflex is provided. Lab Data Labs: Lab Results 03/04/23 Range/Units 15:50 Urine Color Yellow (Yellow) Urine Appearance Cloudy A (Clear) Urine pH 6.0 (5.0-8.5) Ur Specific [place] 1.025 (1.000-1.030) Urine Protein 1+ A (Negative) Urine Glucose (UA) Negative (Negative) Urine Ketones Negative (Negative) Urine Blood 1+ A (Negative) Urine Nitrite Positive A (Negative) Urine Bilirubin Negative (Negative) Urine Urobilinogen 0.2 (0.2-1.0) Ur Leukocyte Esterase 1+ A (Negative) Urine RBC 2-5 A (0-2) Urine WBC 50-100 A (0-5) Ur Squamous Epith Cells None (None-Few) Urine Bacteria Many A (None) Discharge Plan Discharge Clinical Impression: Urinary tract infection Patient Disposition: Home, Self-Care Condition: Stable Additional Instructions: take medication as prescribed. Follow up with MD or return if worsening. Prescriptions: New cephalexin 500 mg capsule 500 mg PO TID 7 Days Qty: 21 0RF No Action metoclopramide HCl [Reglan] 10 mg tablet 10 mg PO Q6H PRN (Reason: headache) Qty: 30 2RF DHA 200 mg capsule 200 mg PO DAILY folic acid 400 mcg tablet 400 mcg PO DAILY prochlorperazine maleate [Compazine] 5 mg tablet 5 mg PO Q6-8H MDD 40mg PRN (Reason: nausea and vomiting) Qty: 30 0RF Rx Instructions: 5-10mg every 6-8hr PRN headaches and nausea. Max 40mg/day. Follow Up/Referrals: Provider,Not a Local [Primary Care Provider] - Stand Alone Forms: [facility] Info Instructions Procedures Ultrasound Other exam #1: Anatomical areas examined: 22 Wk gestation Indications: Abdominal/back pain Exam type: focused emergency ultrasound Description/findings: Normal anatomy. Placenta is normal. Good proper amount of amniotic fluid. heart rate is normal. Impression: Normal obstetric exam at 22 weeks gestation.
[2023-03-04 16:16] LABS: Bacteria Urine Many; WBC Urine 50-100 (0-5)
[2023-03-04] MEDS: KETOROLAC 30 MG/ML inj 15 MG IM (16:23)
== END 2023-03-04 17:01 | disposition home or self-care (01) ==
PROVIDERS: Emergency Provider Emergency Medicine Emergency Medical Services
DX: N39.0 Urinary tract infection, site not specified (principal); Z33.1 Pregnant state, incidental
CPT/HCPCS: 76815; 81001; 87086; 87186; 96372; 96374; 99283; 99284; J1885

== ENCOUNTER 2023-03-07 02:23 | Observation (INO) | payer BC, SELFPAY ==
[2023-03-07] VITALS (48 sets, daily range): BP systolic 78–104; BP diastolic 48–65; PULSE 69–90; RESP 16–20; TEMP 35.6–37.1; O2SAT 92–98; BMI 27.5; BMI 27.2
--- NOTE | 2023-03-07 02:58 | ED.GENADULT ---
HPI - General Adult General Time Seen by Provider: 02:58 Date Seen: 03/07/23 Chief complaint: Abdominal Pain Stated complaint: Side pain Time Seen by Provider: 03/07/23 02:57 Source: patient, family, RN notes reviewed, old records reviewed and hyster machine operator Mode of arrival: wheelchair Limitations: no limitations History of Present Illness HPI narrative: Patient is a very pleasant 32-year-old female with history of OB care in the [facility] system who comes to the [facility] for abdominal pain. Abdominal pain started earlier today and has gradually increased. Patient and her state that they were seen at [facility] yesterday 03/07 for left-sided pain and were told that she has a urinary tract infection. Patient was seen here on March 04 and treated with Keflex for UTI. Culture is pansensitive E coli. Today's pain is in the right lower quadrant. It is associated with diarrhea and some vomiting. No known fever. No vaginal bleeding. Patient's tells me that patient is 5 weeks . No history of complications with previous pregnancies. Patient has a prescription for antibiotic in the room but it has not yet been filled. Related Data Home Medications Medication Instructions Recorded Confirmed folic acid 400 mcg tablet 400 mcg PO DAILY 12/06/22 03/04/23 docosahexaenoic acid 200 mg 200 mg PO DAILY 12/19/22 03/04/23 capsule ( DHA) Previous Rx's Medication Instructions Recorded prochlorperazine maleate 5 mg 5 mg PO Q6-8H PRN nausea and 12/25/22 tablet (Compazine) vomiting #30 tabs metoclopramide HCl 10 mg tablet 10 mg PO Q6H PRN headache #30 tabs 01/16/23 (Reglan) cephalexin 500 mg capsule 500 mg PO TID 7 days #21 caps 03/04/23 Allergies Allergy/AdvReac Type Severity Reaction Status Date / Time aspirin Allergy Intermediate Rash Verified 03/04/23 15:48 acetaminophen AdvReac Unknown Rash Verified 03/04/23 15:48 Review of Systems Status of ROS: Reports: 10 or more systems reviewed and unremarkable except as noted in History and below Const: Denies: fever or chills ENMT: Denies: throat pain or difficulty swallowing Cardio: Denies: chest pain or shortness of breath with exertion Resp: Denies: shortness of breath, cough or wheezing GI: Reports: abdominal pain, nausea, vomiting and diarrhea; Denies: difficulty swallowing : Denies: painful urination, urinary frequency or vaginal bleeding Musculo: Denies: back pain Neuro: Denies: headache Endo: Denies: excessive urination or excessive thirst Allergy/Immuno: Denies: wheezing PFSH [facility] Social History Smoking Status: Former smoker Do you use any of these nicotine containing products: None Second hand tobacco smoke exposure: No How often do you have a drink containing alcohol: never How often do you have six or more drinks on one occasion: Never AUDIT-C Alcohol total score: 0 Non-prescribed substance use: denies use Little interest or pleasure in doing things: more than half the days Feeling down, depressed, or hopeless: several days service: No Exam Narrative: Exam Narrative: Patient is in discomfort. We do have to do our exam and history with the assistance of an hyster machine operator. Patient's actually does most of the answering of questions. Patient is with moist mucous membranes. Neck is supple. Heart with a regular rate and rhythm. Lungs are clear bilaterally. Abdomen is soft. She has pain in the right lower quadrant but I am really not detecting any rebound tenderness. There is really no evidence of a Beltre sign. Lower extremities without edema. Const: Vital Signs, click to edit/add: Vital Signs - 24 hr 03/07/23 02:46 03/07/23 08:20 03/07/23 09:16 Temperature 96.1 F L 97.0 F L Pulse Rate 76 Pulse Rate [Pulse Oximeter] 77 80 Respiratory Rate 20 18 Blood Pressure Blood Pressure [Ri ght Upper Arm] 96/64 88/53 L Pulse Oximetry 96 94 Oxygen Delivery Me thod Room Air Room Air 03/07/23 09:17 03/07/23 09:18 03/07/23 09:30 Temperature Pulse Rate 73 74 77 Pulse Rate [Pulse Oximeter] Respiratory Rate Blood Pressure 85/53 L Blood Pressure [Ri ght Upper Arm] Pulse Oximetry 94 95 94 Oxygen Delivery Me thod 03/07/23 09:31 03/07/23 09:32 03/07/23 10:39 Temperature Pulse Rate 78 76 75 Pulse Rate [Pulse Oximeter] Respiratory Rate Blood Pressure 87/55 L 84/53 L Blood Pressure [Ri ght Upper Arm] Pulse Oximetry 94 95 94 Oxygen Delivery Me thod 03/07/23 10:40 Temperature 97.7 F Pulse Rate 79 Pulse Rate [Pulse Oximeter] Respiratory Rate 16 Blood Pressure 91/53 L Blood Pressure [Ri ght Upper Arm] Pulse Oximetry 94 Oxygen Delivery Me thod Documenting provider has reviewed patient's vital signs: yes Course Course Hospital Course: Differential diagnosis includes but is not limited to acute appendicitis, bowel obstruction, ectopic , colic, ureteral colic with the stone, pyelonephritis, UTI. Given the fact that she is 5 weeks I feel it important to rule out any possibility of ectopic and thus do call ultrasound in. I have asked ultrasound to see if they are able to visualize appendix as well. Will place IV and use morphine 4 mg, Zofran 4 mg for pain control. Will also give 1 L of normal saline. Labs to include CBC, hCG, comprehensive panel, CRP. Reevaluation(s) Reevaluation #1: I received a call from ultrasound stating that patient is actually 22 weeks . [place] [address] with a CRP of 7.7. LFTs within normal limits and creatinine is within normal limits. Ultrasound noted to show gallstones and gallbladder wall at the upper limits of normal. resident care technician notes hydronephrosis of the right kidney and ureter. At this time patient is improved after receiving morphine. Currently plan on OB and surgical consultation. Reevaluation #2: Patient noted to have persistent low blood pressures in the 80s at this time. She has a heart rate in the 90s. She and does not have a fever. She did have history of vomiting and diarrhea per her . Has only urinated once overnight. A 2 L of normal saline is given and now we have started a 3rd L at 250 an hour. She does not meet septic criteria but of course with persistently low blood pressure this is a worry. Initial MRI of the abdomen scheduled for noon but they were able to move it up and thus she is going over to MRI right now. She did receive 1 g of IV Rocephin. Consultations Consultation #1: I was able to discuss patient's case with our surgical consult Dr. Soriano. We discussed the possibility of abdominal MRI to sort out patient's pain. Consultation #2: I do speak with Dr. Newman regarding this patient. There are multiple possibilities for patient's pain and she does agree that MRI would likely be helpful in sorting this out. Vital Signs Vital signs: Initial Vital Signs Temperature 96.1 F L 03/07/23 02:46 Temperature Source Temporal Artery Scan 03/07/23 02:46 Pulse Rate 77 03/07/23 02:46 Respiratory Rate 20 03/07/23 02:46 Blood Pressure 96/64 03/07/23 02:46 Blood Pressure Mean 74 03/07/23 02:46 Blood Pressure Position Sitting 03/07/23 02:46 Oxygen Delivery Method Room Air 03/07/23 02:46 Vital Signs Temperature 96.1 F L 03/07/23 02:46 Pulse Rate 77 03/07/23 02:46 Respiratory Rate 20 03/07/23 02:46 Blood Pressure 96/64 03/07/23 02:46 Oxygen Delivery Method Room Air 03/07/23 02:46 Temperature 97.7 F 03/07/23 10:40 Pulse Rate 79 03/07/23 10:40 Respiratory Rate 16 03/07/23 10:40 Blood Pressure 91/53 L 03/07/23 10:40 Pulse Oximetry 94 03/07/23 10:40 Oxygen Delivery Method Room Air 03/07/23 08:20 Medical Decision Making MDM Narrative Medical decision making narrative: 1. Abdominal pain-at this time possibilities include kidney stone as there is evidence of right-sided hydronephrosis, pyelonephritis as patient has recent history of UTI with pansensitive E coli. She was given a dose of Rocephin 24 hours ago and then again early this morning. We are not entirely sure that she has been taking her antibiotic pills. Additional considerations include cholecystitis based on ultrasound but patient really does not have significant pain in the right upper quadrant. Appendicitis is also a possibility given patient's pain location. I have spoken with both the surgeon and OBGYN and the plan going forward at this time is order an MRI of the abdomen. Patient's pain has improved with the use of morphine and Zofran. 2. Dehydration-patient has 3+ urinary ketones after 2 L of normal saline. 1/3 L is now being given. Patient did complain of vomiting and diarrhea although she has not had that here in the emergency room. 2. Disposition-patient currently comfortable after receiving morphine. I have spoken both with surgical and OB consultants. At this point MRI of the abdomen without contrast is our plan. This is ordered. Patient is aware of our plan going forward. 1111 hours-patient noted to have completed MRI. Awaiting official radiological read. Patient having increasing pain. Re-examination shows slight discomfort in the right upper quadrant but increased discomfort right lower quadrant. No evidence of scarring on abdomen to indicate previous gallbladder removal and patient confirms no previous abdominal surgery. This of importance as on site radiologist had difficulty identifying gallbladder on MRI. Patient will be signed out to my partner Dr. Hernandez. Consultants at this time are Dr. Soriano for surgery and Dr. Olegario Kim for OBGYN specialty. Medical Records Medical records reviewed: Yes I reviewed the patient's medical records Lab Data Lab results reviewed: Yes I reviewed the patient's lab results Labs: Lab Results 03/07/23 03/07/23 Range/Units 04:35 10:30 WBC 11.08 H (4.50-11.00) K/uL RBC 3.67 L (4.00-5.20) m/uL Hgb 12.0 (12.0-16.0) gm/dL Hct 35.3 (33.0-51.0) % MCV 96 (80-100) fL MCH 33 (26-34) pg MCHC 34 (32-36) gm/dL RDW Coeff of [place] 11.8 (11.5-15.5) % Plt Count 226 (140-440) K/uL Neut % (Auto) 84.3 H (42.0-72.0) % Lymph % (Auto) 8.1 L (20-44) % [place] % (Auto) 6.9 (0.0-11.0) % Eos % (Auto) 0.0 (0.0-7.0) % Baso % (Auto) 0.4 (0.0-3.0) % Neut # (Auto) 9.30 H (1.7-7.0) K/uL Lymph # (Auto) 0.90 (0.90-2.90) K/uL [place] # (Auto) 0.80 (0.00-0.90) K/UL Eos # (Auto) 0.00 (0.00-0.50) K/uL Baso # (Auto) 0.00 (0.00-0.30) K/uL Sodium 133 L (135-149) mmol/L Potassium 3.5 L (3.6-5.1) mmol/L Chloride 103 (96-114) mmol/L Carbon Dioxide 20 (20-32) mmol/L BUN 5 (5-24) mg/dL Creatinine 0.5 (0.5-1.5) mg/dL Estimated Creat Clear 142.07 Estimated GFR 129 ml/min Glucose 106 (60-115) mg/dL Lactate 0.9 (0.5-1.9) mmol/L Calcium 8.6 (8.4-10.6) mg/dL Total Bilirubin 0.9 (0.1-1.5) mg/dL AST 28 (12-35) U/L ALT 19 (4-35) U/L Alkaline Phosphatase 62 (40-150) U/L C-Reactive Protein 7.7 H (0.5-1.0) mg/dL Total Protein 7.0 (6.0-8.3) g/dL Albumin 3.7 (3.3-5.0) g/dL HCG, Quant 6946.00 mIU/mL Urine Color [place] A (Yellow) Urine Appearance Clear (Clear) Urine pH 6.0 (5.0-8.5) Ur Specific [place] 1.025 (1.000-1.030) Urine Protein 1+ A (Negative) Urine Glucose (UA) Negative (Negative) Urine Ketones 3+ A (Negative) Urine Blood Negative (Negative) Urine Nitrite Negative (Negative) Urine Bilirubin 1+ A (Negative) Urine Urobilinogen 2.0 A (0.2-1.0) Ur Leukocyte Esterase Trace A (Negative) Urine RBC 0-2 (0-2) Urine WBC 10-25 A (0-5) Ur Squamous Epith Cells Moderate A (None-Few) Urine Bacteria None (None) Urine Mucus Moderate A (None) Imaging Data US - abdomen: Attestation: I have reviewed the pertinent imaging results. Radiologist's impression: Liver: Possible fatty infiltration. No masses.? No intrahepatic biliary dilatation.? Portal vein is patent with blood flow toward the liver. Gallbladder: A prominent gallbladder stone is present. Borderline wall thickening measuring 3 mm. Common bile duct: 7 mm.? Pancreas: Unremarkable. Right kidney: Moderate hydronephrosis. Otherwise unremarkable. IMPRESSION: 1. Cholelithiasis with borderline wall thickening. Acute cholecystitis is possible but not definite. 2. Moderate right renal hydronephrosis may be related. US pelvis: Attestation: I have reviewed the pertinent imaging results. Radiologist's impression: Liver: Possible fatty infiltration. No masses.? No intrahepatic biliary dilatation.? Portal vein is patent with blood flow toward the liver. Gallbladder: A prominent gallbladder stone is present. Borderline wall thickening measuring 3 mm. Common bile duct: 7 mm.? Pancreas: Unremarkable. Right kidney: Moderate hydronephrosis. Otherwise unremarkable. IMPRESSION: 1. Cholelithiasis with borderline wall thickening. Acute cholecystitis is possible but not definite. 2. Moderate right renal hydronephrosis may be related. Discharge Plan Discharge Clinical Impression: Abdominal pain Qualifiers: Abdominal location: right upper quadrant Qualified Code(s): R10.11 - Right upper quadrant pain UTI (urinary tract infection) Qualifiers: Urinary tract infection type: site unspecified Hematuria presence: without hematuria Qualified Code(s): N39.0 - Urinary tract infection, site not specified Qualifiers: Weeks of gestation: 22 weeks Qualified Code(s): Z3A.22 - 22 weeks gestation of Condition: Improved Prescriptions: No Action metoclopramide HCl [Reglan] 10 mg tablet 10 mg PO Q6H PRN (Reason: headache) Qty: 30 2RF DHA 200 mg capsule 200 mg PO DAILY folic acid 400 mcg tablet 400 mcg PO DAILY cephalexin 500 mg capsule 500 mg PO TID 7 Days Qty: 21 0RF prochlorperazine maleate [Compazine] 5 mg tablet 5 mg PO Q6-8H MDD 40mg PRN (Reason: nausea and vomiting) Qty: 30 0RF Rx Instructions: 5-10mg every 6-8hr PRN headaches and nausea. Max 40mg/day. Follow Up/Referrals: Provider,Not a Local [Primary Care Provider] -
--- NOTE | 2023-03-07 02:58 | CRLHL7_ITS ---
For Patients: As a result of the Century Cures Act, medical imaging exams and procedure reports are released immediately into your electronic medical record. You may view this report before your referring provider. If you have questions, please contact your health care provider. INDICATION: with right lower quadrant pain. TECHNIQUE: Ultrasound OB pelvis transabdominal. Real-time thrasher-scale imaging of the fetus was performed as well as color Doppler and spectral Doppler analysis of the umbilical artery. COMPARISON: None. FINDINGS: Intrauterine gestation: Present. cardiac activity: 169 beats per minute. Presentation: Vertex. Amniotic fluid volume: Normal with a deepest pocket of 5 cm. Placenta: Anterior. Cervix: Not measured. IMPRESSION.: Viable intrauterine . No abnormalities seen. Dictated by Parveen Acuna MD @ 03/07/2023 4:59:51 AM (Electronically Signed)
--- NOTE | 2023-03-07 04:01 | CRLHL7_ITS ---
For Patients: As a result of the Century Cures Act, medical imaging exams and procedure reports are released immediately into your electronic medical record. You may view this report before your referring provider. If you have questions, please contact your health care provider. INDICATION: with right lower quadrant pain. TECHNIQUE: Ultrasound abdomen limited. Sonographic images of the right upper quadrant were obtained using thrasher-scale and color Doppler images. COMPARISON: None. FINDINGS: Liver: Possible fatty infiltration. No masses. No intrahepatic biliary dilatation. Portal vein is patent with blood flow toward the liver. Gallbladder: A prominent gallbladder stone is present. Borderline wall thickening measuring 3 mm. Common bile duct: 7 mm. Pancreas: Unremarkable. Right kidney: Moderate hydronephrosis. Otherwise unremarkable. IMPRESSION: 1. Cholelithiasis with borderline wall thickening. Acute cholecystitis is possible but not definite. 2. Moderate right renal hydronephrosis may be related. Dictated by Parveen Acuna MD @ 03/07/2023 5:03:20 AM (Electronically Signed)
[2023-03-07 04:40] LABS: Lactate* 0.9 mmol/L (0.5-1.9)
[2023-03-07 04:41] LABS: Basophils Percent Auto 0.4 % (0.0-3.0); Hematocrit 35.3 % (33.0-51.0); Immature Granulocytes Pct Auto 0.3 %; Lymphocytes Percent Auto 8.1 % (20-44); Mean Corpuscular HGB Conc 34 gm/dL (32-36); Mean Corpuscular Hemoglobin 33 pg (26-34); Mean Corpuscular Volume 96 fL (80-100); Monocytes Percent Auto 6.9 % (0.0-11.0); Neutrophils Percent Auto 84.3 % (42.0-72.0); Platelet Count* 226 K/uL (140-440); RDW Coefficient of Variation % 11.8 % (11.5-15.5); Red Blood Count 3.67 m/uL (4.00-5.20); White Blood Count* 11.08 K/uL (4.50-11.00)
[2023-03-07 04:43] LABS: Slide Review Reflex No
[2023-03-07] MEDS: 0.9 % SODIUM CHLORIDE 1000 ml 1,000 ML IV ×3 (04:55→09:55)
[2023-03-07] MEDS: ONDANSETRON 2 MG/ML inj 4 MG IVP (04:55)
[2023-03-07] MEDS: MORPHINE 4 MG/ML INJ IVP ×2 (04:55→11:18)
[2023-03-07 04:56] LABS: Albumin* 3.7 g/dL (3.3-5.0); Chloride* 103 mmol/L (96-114); Potassium* 3.5 mmol/L (3.6-5.1); Sodium* 133 mmol/L (135-149)
[2023-03-07 04:58] LABS: Bilirubin Total* 0.9 mg/dL (0.1-1.5); Carbon Dioxide* 20 mmol/L (20-32); Creatinine* 0.5 mg/dL (0.5-1.5); Est. Creatinine Clearance* 142.07; Estimated Glomerular Filt Rate 129 ml/min
[2023-03-07 04:59] LABS: Alanine Aminotransferase* 19 U/L (4-35); Alkaline Phosphatase* 62 U/L (40-150); Aspartate Amino Transferase* 28 U/L (12-35); Blood Urea Nitrogen* 5 mg/dL (5-24); Glucose* 106 mg/dL (60-115)
[2023-03-07 05:00] LABS: Calcium* 8.6 mg/dL (8.4-10.6)
[2023-03-07 05:02] LABS: C Reactive Protein* 7.7 mg/dL (0.5-1.0)
[2023-03-07] MEDS: cefTRIAXone 1 GM in 0.9 % SODIUM CHLORIDE Mini-bag 100 ML IVPB ×2 (05:50→16:25)
--- NOTE | 2023-03-07 07:40 | MR_ITS ---
Patient: JACKIE CASEY Facility:?[facility] Patient ID:?[id number] Site Patient ID:?[id number] Site :?[id number] Study:?MRI-Abdomen W/O PREG APPY-03/07/2023 11:09:04 AM Ordering Physician:?UMESH HOOKER Final Report: Indication: Right lower quadrant pain, 2nd trimester gestation Technique: Noncontrast MRI abdomen Comparison: Ultrasound 03/07/2023 Findings: Normal 2nd trimester intrauterine gestation. No pelvic free fluid or abscess. No pleural effusion or ascites. Normal liver and spleen. Normal adrenal glands and left kidney. Incidental subcentimeter cyst associated with the pancreatic body. Moderate right hydroureteronephrosis without discernible filling defect to suggest stone. Normal appendix. No adenopathy. No adnexal mass. Osseous structures normal. There appears to be a stone within a nondistended gallbladder measuring 1.9 cm. The common bile duct is not dilated. No intrahepatic biliary duct dilation. Impression: Normal appendix. Moderate right hydroureteronephrosis without discernible stone. No perinephric stranding to suggest pyelonephritis. No adnexal mass or pelvic free fluid. The gallbladder is completely nondistended and there appears to be a 1.9 cm gallstone present. No biliary obstruction is present. Dictated by Musa José MD @ 03/07/2023 12:44:33 PM Signed by:?Musa José MD @03/07/2023 12:44:33 PM (Electronic Signature)
--- NOTE | 2023-03-07 08:25 | PC.NURSE ---
use of manager risk management to do vitalsnote blood pressure, Dr Christine aware ordered bolus, pt requesting water, told her she is NPO
--- NOTE | 2023-03-07 09:08 | P.GSCN_ITS ---
History of Present Illness Consult details Date Seen: 03/07/23 Consult date: 03/07/23 Narrative: The patient is a 32-year-old female who presented to the emergency department today with abdominal pain which started yesterday. She states that it started it at umbilicus and radiated down into her right lower quadrant. Of note she is 24 weeks . She states that with this she had nausea and did vomit. She also had diarrhea. She denies any urinary symptoms. She states that pain medication helps. The pain is worse when she pushes on her right lower quadrant. She states that she did have a fever yesterday. She was seen in our ER on 03/04/2023 was diagnosed with urinary tract infection and was sent home with antibiotics. Urine culture grew E coli. She continued to feel ill so she went to the [facility] yesterday where she received a dose of IV antibiotic and was discharged home. Because she did not improve she came to our emergency department. An ultrasound was done which showed right-sided hydronephrosis and a contracted gallbladder with a gallstone. Because of the right lower quadrant pain, MRI was obtained which showed a normal appendix and no evidence of cholecystitis. This did show gallstones. The patient states that she has had gallbladder symptoms previously and this was always in the right upper quadrant. [facility] Social History What is your current living situation: I presently have a place to live Problems where you live: no known problems Problems where you live details: n/a In the past 12 months, utilities in danger of being shut off: no In the past 12 mos, have been you worried that your food would run out before you had money to buy more?: never true In the past 12 mos, the food you bought just didn't last and you didn't have money to buy more?: never true Highest level of school completed/degree received: 9th grade Smoking Status: Former smoker Do you use any of these nicotine containing products: None Second hand tobacco smoke exposure: No How often do you have a drink containing alcohol: never How often do you have six or more drinks on one occasion: Never AUDIT-C Alcohol total score: 0 Non-prescribed substance use: denies use Caffeine: No How often does anyone, including family, friends and others, physically hurt you : How often does anyone, including family, friends and others, insult or talk down to you: How often does anyone, including family, friends and others, threaten you with harm: How often does anyone, including family, friends and others, scream or curse at you: Little interest or pleasure in doing things: more than half the days Feeling down, depressed, or hopeless: several days service: No Meds Home Medications and Allergies Home Medications Medication Instructions Recorded Confirmed Type folic acid 400 mcg tablet 400 mcg PO DAILY 12/06/22 03/04/23 History docosahexaenoic acid 200 mg 200 mg PO DAILY 12/19/22 03/04/23 History capsule ( DHA) Allergies Allergy/AdvReac Type Severity Reaction Status Date / Time aspirin Allergy Intermediate Rash Verified 03/04/23 15:48 acetaminophen AdvReac Unknown Rash Verified 03/04/23 15:48 Exam Narrative: Exam Narrative: General appearance: Alert, cooperative, and in no distress Eyes: PERRLA, eye lids clear, and sclera white HENT Head: Normocephalic Ears: External ears normal Pulmonary: Breathing nonlabored on room air Cardiovascular Heart: Regular rate Extremities: warm and well perfused Gastrointestinal Abdominal: No tenderness in the upper abdomen. She is mildly tender in the right lower quadrant. Mild amount of rebound. Uterus is palpable at the umbilicus. Musculoskeletal: Extremities: Upper: Both upper extremities have normal joint range of motion and intact strength. Lower: Both lower extremities have normal joint range of motion and intact strength. Skin: Normal skin color, texture, and turgor. Neurologic: No focal deficits Psychiatric: Alert, oriented, cooperative, normal affect. Const: Vital Signs, click to edit/add: Vital Signs - 24 hr 03/07/23 02:46 03/07/23 08:20 Temperature 96.1 F L 97.0 F L Pulse Rate [Pulse Oximeter] 77 80 Respiratory Rate 20 18 Blood Pressure [Ri ght Upper Arm] 96/64 88/53 L Pulse Oximetry 96 Oxygen Delivery Me thod Room Air Room Air Results Labs Labs: Abnormal lab results 03/07/23 Range/Units 04:35 WBC 11.08 H (4.50-11.00) K/uL RBC 3.67 L (4.00-5.20) m/uL Neut % (Auto) 84.3 H (42.0-72.0) % Lymph % (Auto) 8.1 L (20-44) % Neut # (Auto) 9.30 H (1.7-7.0) K/uL Sodium 133 L (135-149) mmol/L Potassium 3.5 L (3.6-5.1) mmol/L C-Reactive Protein 7.7 H (0.5-1.0) mg/dL Diabetes panel 03/07/23 Range/Units 04:35 Sodium 133 L (135-149) mmol/L Potassium 3.5 L (3.6-5.1) mmol/L Chloride 103 (96-114) mmol/L Carbon Dioxide 20 (20-32) mmol/L BUN 5 (5-24) mg/dL Creatinine 0.5 (0.5-1.5) mg/dL Glucose 106 (60-115) mg/dL Calcium 8.6 (8.4-10.6) mg/dL AST 28 (12-35) U/L ALT 19 (4-35) U/L Alkaline Phosphatase 62 (40-150) U/L Total Protein 7.0 (6.0-8.3) g/dL Albumin 3.7 (3.3-5.0) g/dL Calcium panel 03/07/23 Range/Units 04:35 Calcium 8.6 (8.4-10.6) mg/dL Albumin 3.7 (3.3-5.0) g/dL Pituitary panel 03/07/23 Range/Units 04:35 Sodium 133 L (135-149) mmol/L Potassium 3.5 L (3.6-5.1) mmol/L Chloride 103 (96-114) mmol/L Carbon Dioxide 20 (20-32) mmol/L BUN 5 (5-24) mg/dL Creatinine 0.5 (0.5-1.5) mg/dL Glucose 106 (60-115) mg/dL Calcium 8.6 (8.4-10.6) mg/dL Adrenal panel 03/07/23 Range/Units 04:35 Sodium 133 L (135-149) mmol/L Potassium 3.5 L (3.6-5.1) mmol/L Chloride 103 (96-114) mmol/L Carbon Dioxide 20 (20-32) mmol/L BUN 5 (5-24) mg/dL Creatinine 0.5 (0.5-1.5) mg/dL Glucose 106 (60-115) mg/dL Calcium 8.6 (8.4-10.6) mg/dL Total Bilirubin 0.9 (0.1-1.5) mg/dL AST 28 (12-35) U/L ALT 19 (4-35) U/L Alkaline Phosphatase 62 (40-150) U/L Total Protein 7.0 (6.0-8.3) g/dL Albumin 3.7 (3.3-5.0) g/dL All other labs normal. Imaging Additional studies: Ultrasound of the abdomen as well as MRI images were reviewed and discussed with the radiologist. Ultrasound abdomen IMPRESSION: 1. Cholelithiasis with borderline wall thickening. Acute cholecystitis is possible but not definite. 2. Moderate right renal hydronephrosis may be related. Dictated by Parveen Acuna MD @ 03/07/2023 5:03:20 AM MRI abdomen Impression: Normal appendix. Moderate right hydroureteronephrosis without discernible stone. No perinephric stranding to suggest pyelonephritis. No adnexal mass or pelvic free fluid. The gallbladder is completely nondistended and there appears to be a 1.9 cm gallstone present. No biliary obstruction is present. Assessment and Plan Assessment and plan (1) Pyelonephritis: Status: Acute (2) Abdominal pain: Status: Acute Plan The patient is a 32-year-old female who is 24 weeks with right lower quadrant pain for 2 days. It appears as though she likely has a urinary tract infection/possible pyelonephritis. Initially I was consulted as there was concern for biliary pathology or appendicitis. This has been ruled out. She does have a gallstone, however her pain is not her right upper quadrant and her gallbladder is nondistended. Recommended admission her OBGYN please call if there are questions or concerns.
--- NOTE | 2023-03-07 09:23 | PC.NURSE ---
Filled out MRI questionnaire. Patient states she is claustrophobic but does not want any medication for this. OB completed their NST. No concerns at this time. Patient is to let us know if she experiences more cramping.
--- NOTE | 2023-03-07 09:40 | PC.NURSE ---
To MRI. Patients blood pressure low. Dr. Christine aware. 3rd L hung at gravity during MRI. Patient is dizzy and aware. Wants imaging to figure out what is going on.
--- NOTE | 2023-03-07 09:52 | PC.OBNST ---
NST Note NST Note Start: 03/07/23 09:50 Freq: ONCE Status: Active Protocol: Document 03/07/23 09:50 ABP (Rec: 03/07/23 09:52 ABP [id number]) NST Note 4 Para (# of births) 3 EDC 06/24/23 Gestational Age In Weeks & Days 24 Weeks & 3 Days Patient Presented with Complaint(s) of Pain Other Complaints Patient in ED with abdominal pain - ruling out for gallbladder/appendicitis. Appropriate for Gestational Age Yes LYNN Gonzalez RN Date 03/07/23 Appropriate for Gestational Age Yes LYNN Nicolas RN Date 03/07/23 OB NST charge Yes Complete NST Note via Write Note Yes The provider's electronic signature indicates the NST is reactive/appropriate for gestational age. *Note to provider: If an addendum is required, open the patient's chart and click on the note under the Nurse/Allied Health tab.
[2023-03-07 10:47] LABS: Appearance Urine Clear (Clear); Bilirubin Urine 1+ (Negative); Blood Urine Negative (Negative); Color Urine Orange (Yellow); Glucose Urine Negative (Negative); Ketones Urine 3+ (Negative); Leukocyte Esterase Urine Trace (Negative); Nitrite Urine Negative (Negative); Protein Urine 1+ (Negative); Specific Gravity Urine 1.025 (1.000-1.030)
[2023-03-07 11:03] LABS: Mucus Urine Moderate; RBC Urine 0-2 (0-2); Squamous Epithelial Cell Urine Moderate (None-Few)
--- NOTE | 2023-03-07 14:19 | ED.NURSE ---
OBGYN saw patient at bedside. Decided to admit. Patient updated her and said that RN did not need to be called. Bow Tacker was called that Dr. Frias would accept patient. HS said patient will go to M/S for admission vs OB. Will set up OB checks with OB RNs. Patient stated she was not nauseous and wanted to try some food. Dr. Zaidi okay to let patient eat.
--- NOTE | 2023-03-07 15:26 | ED.NURSE ---
Report given to LYNN Castelan on M/S. All belongings sent with patient. Digital Media Specialist present on admission transportation. Patient transferred to M/S room 259.
--- NOTE | 2023-03-07 15:48 | PM.OBHPAP1 ---
OB - H&P; HPI Antepartum History of Present Illness Date Seen: 03/07/23 Chief complaint: Side pain Narrative: Annette Tomas is a 32 year old female 003 with IUP at 24 3/7 weeks who presents to the ER with concerns of persistent abdominal/pelvic pain. Patient states that current symptoms started this past Saturday03/04/2023, started to experience pelvic pain, back pain that she describes as her mid back, and bilateral, nausea, vomiting with fever and chills yesterday. Patient was seen at our ER on 03/04/23 and was diagnosed with UTI, sent home with prescription for oral antibiotic Keflex. Urine culture collected at this time confirmed E. coli UTI, pansensitive. Patient states that the rest of the week she continued to experience vomiting, felt feverish, experienced chills and also persistence of pain, this is why she went to [place] ED yesterday morning for re evaluation states to have received one dose of IV antibiotic and was sent home. Patient felt like symptoms did not improve and decided to come in to our hospital again. Today patient was found dehydrated, imaging completed showed gallstones, no evidence of cholecystitis, MRI with a normal appendix. I was asked to evaluate patient at ER for further recommendations. Upon evaluation concern for pyelonephritis and recommendation given for admission to continue IV antibiotics until clinical improvement. Ob nurses completed NST earlier today found to be appropriate for gestational age and no UCs. History of Present Dating criteria: based on 1st trimester US only care: good care Ultrasounds: normal 1st trimester US and normal mid trimester US complications comment: Pyelonephritis Medical complications: none Labs Blood type: O (+) positive Rubella: immune RPR/VDLR: nonreactive GBS status: unknown HBsAG: negative Meds Home Medications and Allergies Home Medications Medication Instructions Recorded Confirmed Type folic acid 400 mcg tablet 400 mcg PO DAILY 12/06/22 03/04/23 History docosahexaenoic acid 200 mg 200 mg PO DAILY 12/19/22 03/04/23 History capsule ( DHA) Allergies Allergy/AdvReac Type Severity Reaction Status Date / Time aspirin Allergy Intermediate Rash Verified 03/04/23 15:48 acetaminophen AdvReac Unknown Rash Verified 03/04/23 15:48 OB - H&P: Exam Physical Exam: Vital signs: Temp Pulse Resp BP Pulse Ox O2 Del Method 97.7 F 73 16 104/65 96 Room Air 03/07/23 12:01 03/07/23 15:01 03/07/23 15:01 03/07/23 15:01 03/07/23 15:01 03/07/23 08:20 Narrative: VITAL SIGNS: As noted above. GENERAL APPEARANCE: Alert, cooperative female in no acute distress. MOOD & AFFECT: Normal. ABDOMEN: Gravid, positive bowel sounds, not distended, slightly tender to deep palpation of the right lower abdomen, no uterine tenderness, no guarding, no rebound. EXTREMITIES: Nonedematous. Well perfused. Nontender. OB - Results Labs Labs: Short CBC 03/07/23 Range/Units 04:35 WBC 11.08 H (4.50-11.00) K/uL Hgb 12.0 (12.0-16.0) gm/dL Hct 35.3 (33.0-51.0) % Plt Count 226 (140-440) K/uL BMP 03/07/23 04:35 Sodium 133 L Potassium 3.5 L Chloride 103 Carbon Dioxide 20 BUN 5 Creatinine 0.5 Glucose 106 Calcium 8.6 Liver Function 03/07/23 Range/Units 04:35 Total Bilirubin 0.9 (0.1-1.5) mg/dL AST 28 (12-35) U/L ALT 19 (4-35) U/L Alkaline Phosphatase 62 (40-150) U/L Albumin 3.7 (3.3-5.0) g/dL Urine 03/07/23 Range/Units 10:30 Urine Color [place] A (Yellow) Urine Appearance Clear (Clear) Urine pH 6.0 (5.0-8.5) Ur Specific [place] 1.025 (1.000-1.030) Urine Protein 1+ A (Negative) Urine Glucose (UA) Negative (Negative) Imagin03/07/23: OBUS:FINDINGS:Intrauterine gestation: Present. cardiac activity: 169 beats per minute.Presentation: Vertex.Amniotic fluid volume: Normal with a deepest pocket of 5 cm.Placenta: Anterior.Cervix: Not measured.IMPRESSION.:Viable intrauterine . No abnormalities seen. FINDINGS:Liver: Possible fatty infiltration. No masses.? No intrahepatic biliary dilatation.? Portal vein is patent with blood flow toward the liver.Gallbladder: A prominent gallbladder stone is present. Borderline wall thickening measuring 3 mm. Common bile duct: 7 mm.?Pancreas: Unremarkable.Right kidney: Moderate hydronephrosis. Otherwise unremarkable.IMPRESSION:1. Cholelithiasis with borderline wall thickening. Acute cholecystitis is possible but not definite.2. Moderate right renal hydronephrosis may be related. Findings:Normal 2nd trimester intrauterine gestation. No pelvic free fluid or abscess.No pleural effusion or ascites. Normal liver and spleen. Normal adrenal glands and left kidney. Incidental subcentimeter cyst associated with the pancreatic body. Moderate right hydroureteronephrosis without discernible filling defect to suggest stone.Normal appendix. No adenopathy. No adnexal mass. Osseous structures normal.There appears to be a stone within a nondistended gallbladder measuring 1.9 cm. The common bile duct is not dilated. No intrahepatic biliary duct dilation.Impression:Normal appendix.Moderate right hydroureteronephrosis without discernible stone. No perinephric stranding to suggest pyelonephritis.No adnexal mass or pelvic free fluid.The gallbladder is completely nondistended and there appears to be a 1.9 cm gallstone present. No biliary obstruction is present. OB - A/P Antepartum Assessment and Plan (1) : Status: Acute (2) Pyelonephritis: Status: Acute Plan 1. Possible partially treated pyelonephritis/complicated UTI in and persistent vomiting/dehydration not tolerating PO intake, admit for IVFs, continue Rocephin 1g q 24 hrs, pain management, V/S monitoring, if patient is able to tolerate food tomorrow, remains afebrile and pain improves would likely be able to be discharged home tomorrow to continue PO antibiotic therapy at home. 2. F/U general surgery recommendations, gallbladder with stone and borderline wall thickening Acute cholecystitis is possible but not definite. If she continues to not tolerate PO intake would ask general surgery to consider cholecystectomy/re evaluate. 3. Daily NST.
[2023-03-07] MEDS: MORPHINE 2 MG/ML inj IVP (16:20)
[2023-03-07] MEDS: METOCLOPRAMIDE HCL 5 MG/ML INJ 10 MG IVP ×2 (16:20→23:03)
[2023-03-07] MEDS: LACTATED RINGERS 1000 ML 1,000 ML 125 ML IV (17:02)
--- NOTE | 2023-03-07 17:29 | PC.NURSE ---
Patient admitted to unit with abdominal pain and nausea. Patient hypotensive upon arrival with symptoms of dizziness. Patient HR controlled and afebrile. Patient reports relief of pain with prn morphine and reglan for nausea. Patient able to tolerate fluids and food. Patient SBA with activity due to dizziness. Patient uses power wheelchair mechanic for communication. Will continue to monitor.
[2023-03-08] VITALS (7 sets, daily range): BP systolic 89–104; BP diastolic 52–65; PULSE 70–83; RESP 18; TEMP 36.4–37; O2SAT 95
[2023-03-08] MEDS: LACTATED RINGERS 1000 ML 1,000 ML 125 ML IV (00:12)
[2023-03-08 06:28] LABS: Basophils Absolute Auto 0.03 K/uL (0.00-0.30); Basophils Percent Auto 0.4 % (0.0-3.0); Eosinophils Absolute Auto 0.02 K/uL (0.00-0.50); Eosinophils Percent Auto 0.3 % (0.0-7.0); Hematocrit 30.9 % (33.0-51.0); Hemoglobin* 10.5 gm/dL (12.0-16.0); Immature Granulocytes Abs Auto 0.02 K/uL (0.00-0.30); Immature Granulocytes Pct Auto 0.3 %; Lymphocytes Percent Auto 14.8 % (20-44); Mean Corpuscular HGB Conc 34 gm/dL (32-36); Mean Corpuscular Hemoglobin 33 pg (26-34); Mean Corpuscular Volume 97 fL (80-100); Monocytes Percent Auto 8.5 % (0.0-11.0); Neutrophils Percent Auto 75.7 % (42.0-72.0); Platelet Count* 208 K/uL (140-440); RDW Coefficient of Variation % 11.8 % (11.5-15.5); Red Blood Count 3.18 m/uL (4.00-5.20); White Blood Count* 7.96 K/uL (4.50-11.00)
[2023-03-08 06:37] LABS: Slide Review Reflex No
--- NOTE | 2023-03-08 07:55 | PC.NURSE ---
[id number] Shift Summary? [address] No Code Status and Urdu speaking UTI, gallstones, no evidence of cholecystitis? Hx: 003 with IUP at 24 3/7 weeks? Pt did well overnight and feeling better this morning. Given nausea medication x1 with no emesis. No PRN pain meds needed, 2/10 pain to RLQ. FHT done at 1999 on 03/07. Plans for OB to repeat daily while here. LR @ 75 to R AC. BPs remain soft but MD not concerned if MAP >65. Ate snack overnight. Family was in room for visit before bed. Danish is their second language. Pt?s medications from purse were put in personal storage bin in med room. On room air. Voided every few hours. A bit unsteady with ambulating but is a SBA. Utilized distribution accounting clerk and family translation for assessment and vitals. May be able to DC today with PO abx.?
--- NOTE | 2023-03-08 08:24 | W.PM.OB.MED ---
DS: Providers Provider Time Seen by Provider: 08:00 Date Seen: 03/08/23 Date of admission: 03/07/23 15:28 Primary care physician: Not a Local Provider Admitting Clinician: Anna Frias MD Attending Physician on discharge: Anna Frias MD DS: Diagnosis Discharge Diagnosis (1) Pyelonephritis: Status: Acute Discharge Plan Discharge Disposition: Home, Self-Care Date of Admission: 03/07/23 15:28 Attending Provider on Discharge: Janet Lovelace Primary Care Provider: Provider,Not a Local Condition: Improved Anticipated Discharge Date/Time: 03/08/23 12:31 Discharge Medications: New sulfamethoxazole-trimethoprim [Bactrim DS] 800-160 mg tablet 1 tab PO Q12H 14 Days Qty: 28 0RF Continued metoclopramide HCl [Reglan] 10 mg tablet 10 mg PO Q6H PRN (Reason: headache) Qty: 30 2RF DHA 200 mg capsule 200 mg PO DAILY folic acid 400 mcg tablet 400 mcg PO DAILY prochlorperazine maleate [Compazine] 5 mg tablet 5 mg PO Q6-8H MDD 40mg PRN (Reason: nausea and vomiting) Qty: 30 0RF Rx Instructions: 5-10mg every 6-8hr PRN headaches and nausea. Max 40mg/day. Discontinued cephalexin 500 mg capsule 500 mg PO TID 7 Days Qty: 21 0RF Discharge Orders: Discharge Order (Routine); Ordered 03/08/23 Ordered By: Janet Lovelace Patient Education: Sulfamethoxazole/Trimethoprim (By mouth) (Bactrim, Bactrim DS,..., Cholecystitis (GEN), Return to Work Instructions (DC), Urinary Tract Infection in (DC) Activity Level: Activity as Tolerated Discharge Diet: Regular Follow Up Appointments: Provider,Not a Local [Primary Care Provider] - Janet Lovelace MD [Staff Physician] - 03/21/23 11:00 am ([facility]) Forms: Tred Info Instructions Hospital Course Course Hospital Course: Annette Tomas is a 32 year old female 003 with IUP at 24 4/7 weeks who presents to the ER with concerns of persistent back pain wrapping to her abdominal/pelvic and pelvic area.?Patient states that current symptoms started this past Saturday03/04/2023. She endorses fever, chill, and n/v. Patient was seen at our ER on 03/04/23 and was diagnosed with UTI, sent home with prescription for oral antibiotic Keflex.?Urine culture collected at this time confirmed E. coli UTI, pansensitive. She had minimal improvement on p.o. antibiotics. She presented to [place] ED on 03/07/2023 for re-evaluation and they gave her 1 dose of IV Rocephin. Again she had minimal improvement so she represented to our ED on 03/07/2023. In the ED, patient was found dehydrated, imaging completed showed gallstones, no evidence of cholecystitis. An MRI with showed a normal appendix and gallbladder with a 1.9 cm gallstone present. No biliary obstruction. Her symptoms are most likely related to pyelonephritis. She was admitted for IV antibiotics and rehydration. Patient has remained afebrile throughout admission. Overnight patient had no complaints. Her symptoms are much improved. Her pain is well controlled without any pain medications after the initial morphine in the ED. She is tolerating a regular diet without nausea and vomiting. She is urinating without issues. Patient denies chest pain, SOB, n/v, headache, abdominal pain, vision changes, dizziness. She has soft blood pressure but reports her BP generally is on the lower side and she currently asymptomatic. We discussed her diagnosis. She will be discharged on treatment dose of Bactrim DS BID for 14 days. She is to finish her full antibiotic course. She will need a test of cure after the completion of her p.o. antibiotics. This can be done in a clinic follow-up. Additionally, after she finishes her treatment regimen, she will need prophylactic antibiotic for the rest of her to prevent recurrence. Without prophylactic antibiotic, recurrence rate is 6-8%. My preference for her ppx abx would be cephalexin 500 mg QHS as it has better renal penetration. WBC 11.08 --> 7.96 Physical exam: General: No acute distress Psych: Alert and oriented x3, full affect HEENT: Normocephalic, atraumatic Heart: Regular rate and rhythm, no murmur rub or gallop Lungs: Clear to auscultation bilaterally Abdomen: Gravid, soft, no tenderness, rebound, or guarding. No suprapubic tenderness. MSK: Negative CVAT Pelvic exam: Deferred NST: Baseline 140s bpm, moderate variability, + acel, two small variable decels that spontaneously resolved. AGA [place]: Irritable Labs Labs: Laboratory Tests 03/08/23 03/07/23 03/07/23 Range/Units 05:40 10:30 04:35 WBC 7.96 11.08 H (4.50-11.00) K/uL RBC 3.18 L 3.67 L (4.00-5.20) m/uL Hgb 10.5 L 12.0 (12.0-16.0) gm/dL Hct 30.9 L 35.3 (33.0-51.0) % MCV 97 96 (80-100) fL MCH 33 33 (26-34) pg MCHC 34 34 (32-36) gm/dL RDW Coeff of Elizabeth 11.8 11.8 (11.5-15.5) % Plt Count 208 226 (140-440) K/uL Neut % (Auto) 75.7 H 84.3 H (42.0-72.0) % Lymph % (Auto) 14.8 L 8.1 L (20-44) % [place] % (Auto) 8.5 6.9 (0.0-11.0) % Eos % (Auto) 0.3 0.0 (0.0-7.0) % Baso % (Auto) 0.4 0.4 (0.0-3.0) % Neut # (Auto) 6.00 9.30 H (1.7-7.0) K/uL Lymph # (Auto) 1.20 0.90 (0.90-2.90) K/uL [place] # (Auto) 0.70 0.80 (0.00-0.90) K/UL Eos # (Auto) 0.02 0.00 (0.00-0.50) K/uL Baso # (Auto) 0.03 0.00 (0.00-0.30) K/uL Sodium 133 L (135-149) mmol/L Potassium 3.5 L (3.6-5.1) mmol/L Chloride 103 (96-114) mmol/L Carbon Dioxide 20 (20-32) mmol/L BUN 5 (5-24) mg/dL Creatinine 0.5 (0.5-1.5) mg/dL Estimated Creat Clear 142.07 Estimated GFR 129 ml/min Glucose 106 (60-115) mg/dL Lactate 0.9 (0.5-1.9) mmol/L Calcium 8.6 (8.4-10.6) mg/dL Total Bilirubin 0.9 (0.1-1.5) mg/dL AST 28 (12-35) U/L ALT 19 (4-35) U/L Alkaline Phosphatase 62 (40-150) U/L C-Reactive Protein 7.7 H (0.5-1.0) mg/dL Total Protein 7.0 (6.0-8.3) g/dL Albumin 3.7 (3.3-5.0) g/dL HCG, Quant 6946.00 mIU/mL Urine Color Mcclain A (Yellow) Urine Appearance Clear (Clear) Urine pH 6.0 (5.0-8.5) Ur Specific [place] 1.025 (1.000-1.030) Urine Protein 1+ A (Negative) Urine Glucose (UA) Negative (Negative) Urine Ketones 3+ A (Negative) Urine Blood Negative (Negative) Urine Nitrite Negative (Negative) Urine Bilirubin 1+ A (Negative) Urine Urobilinogen 2.0 A (0.2-1.0) Ur Leukocyte Esterase Trace A (Negative) Urine RBC 0-2 (0-2) Urine WBC 10-25 A (0-5) Ur Squamous Epith Cells Moderate A (None-Few) Urine Bacteria None (None) Urine Mucus Moderate A (None) OB Problem List Additional Plan (1) Pyelonephritis: Status: Acute DS: Summary Vital Signs Vital Signs: Vital Signs Temp Pulse Pulse Resp BP BP BP 03/08/23 06:21 97.8 F 70 18 89/52 L 03/08/23 04:00 18 03/08/23 00:00 98.6 F 83 18 99/62 03/07/23 23:00 83 18 03/07/23 20:20 98.6 F 80 18 88/58 L 03/07/23 17:00 84 91/56 L 03/07/23 15:56 03/07/23 15:56 98.7 F 78 20 87/54 L 03/07/23 15:40 98.7 F 20 87/54 L 03/07/23 15:01 73 16 104/65 06/15/23 15:00 75 03/07/23 14:56 74 101/63 03/07/23 14:45 74 03/07/23 14:32 69 03/07/23 14:31 71 78/55 L 03/07/23 14:30 73 03/07/23 14:15 71 03/07/23 14:01 69 16 90/58 L 03/07/23 14:00 70 03/07/23 13:45 72 03/07/23 13:32 69 03/07/23 13:31 71 85/51 L 03/07/23 13:30 78 03/07/23 13:15 84 03/07/23 13:01 72 85/48 L 03/07/23 13:00 71 03/07/23 12:45 74 03/07/23 12:31 75 82/50 L 03/07/23 12:30 86 03/07/23 12:15 81 03/07/23 12:01 97.7 F 82 16 85/49 L 03/07/23 12:00 83 03/07/23 11:45 79 03/07/23 11:32 79 03/07/23 11:31 82 89/54 L 03/07/23 11:30 81 03/07/23 11:17 80 82/53 L 03/07/23 11:15 90 03/07/23 11:01 80 87/53 L 03/07/23 11:00 80 03/07/23 10:45 77 03/07/23 10:41 80 03/07/23 10:40 97.7 F 79 16 91/53 L 03/07/23 10:39 75 03/07/23 09:32 76 84/53 L 03/07/23 09:31 78 87/55 L 03/07/23 09:30 77 03/07/23 09:18 74 03/07/23 09:17 73 85/53 L 03/07/23 09:16 76 Pulse Ox O2 Del Method 03/08/23 06:21 95 Room Air 03/08/23 04:00 03/08/23 00:00 95 Room Air 03/07/23 23:00 03/07/23 20:20 93 Room Air 03/07/23 17:00 03/07/23 15:56 98 Room Air 03/07/23 15:56 98 Room Air 03/07/23 15:40 98 Room Air 03/07/23 15:01 96 03/07/23 15:00 96 03/07/23 14:56 96 03/07/23 14:45 96 03/07/23 14:32 97 03/07/23 14:31 95 03/07/23 14:30 95 03/07/23 14:15 97 03/07/23 14:01 96 03/07/23 14:00 97 03/07/23 13:45 94 03/07/23 13:32 92 03/07/23 13:31 94 03/07/23 13:30 92 03/07/23 13:15 94 03/07/23 13:01 94 03/07/23 13:00 94 03/07/23 12:45 93 03/07/23 12:31 92 03/07/23 12:30 93 03/07/23 12:15 93 03/07/23 12:01 94 03/07/23 12:00 93 03/07/23 11:45 94 03/07/23 11:32 93 03/07/23 11:31 93 03/07/23 11:30 94 03/07/23 11:17 95 03/07/23 11:15 95 03/07/23 11:01 94 03/07/23 11:00 94 03/07/23 10:45 93 03/07/23 10:41 93 03/07/23 10:40 94 03/07/23 10:39 94 03/07/23 09:32 95 03/07/23 09:31 94 03/07/23 09:30 94 03/07/23 09:18 95 03/07/23 09:17 94 03/07/23 09:16 94
--- NOTE | 2023-03-08 12:30 | PC.NURSE ---
Patient discharge instructions conveyed to patient via in person supervisor cold rolling. All concerns addressed. PIV removed. Patient vitally stable. Patient discharged to home.
--- NOTE | 2023-03-08 14:22 | PC.OBNST ---
NST Note NST Note Start: 03/07/23 09:50 Freq: ONCE Status: Discharge Protocol: Document 03/07/23 09:50 ABP (Rec: 03/07/23 09:52 ABP [id number]) NST Note 4 Para (# of births) 3 EDC 06/24/23 Gestational Age In Weeks & Days 24 Weeks & 3 Days Patient Presented with Complaint(s) of Pain Other Complaints Patient in ED with abdominal pain - ruling out for gallbladder/appendicitis. Appropriate for Gestational Age Yes LYNN Gonzalez RN Date 03/07/23 Appropriate for Gestational Age Yes LYNN Nicolas RN Date 03/07/23 OB NST charge Yes Complete NST Note via Write Note Yes NST Note Start: 03/08/23 10:29 Freq: ONCE Status: Discharge Protocol: Document 03/08/23 10:45 PORTC (Rec: 03/08/23 14:22 PORTC [id number]) NST Note 4 Para (# of births) 3 EDC 06/24/23 Gestational Age In Weeks & Days 24 Weeks & 4 Days Patient Presented with Complaint(s) of Other Other Complaints Admitted to med/surg for kidney infection Reactive Yes Appropriate for Gestational Age Yes LYNN Perez Date 03/08/23 Reactive Yes Appropriate for Gestational Age Yes LYNN Lovelace MD Date 03/08/23 OB NST charge Yes Complete NST Note via Write Note Yes The provider's electronic signature indicates the NST is reactive/appropriate for gestational age. *Note to provider: If an addendum is required, open the patient's chart and click on the note under the Nurse/Allied Health tab.
== END 2023-03-08 12:50 | disposition home or self-care (01) ==
LOC: ED 11:32 → MEDSURG 15:31
PROVIDERS: Family Medicine; Admitting Provider Obstetrics & Gynecology; Emergency Provider Emergency Medicine Emergency Medical Services; Visit Provider Obstetrics & Gynecology
DX: Z3A.22 22 weeks gestation of pregnancy (principal); N12 Tubulo-interstitial nephritis, not specified as acute or chronic; R10.11 Right upper quadrant pain; R10.9 Unspecified abdominal pain
CPT/HCPCS: 36415; 59025; 74181; 76705; 76815; 80053; 81001; 83605; 84702; 85025; 86140; 87086; 96361; 96365; 96366; 96375; 96376; 99285; 99291; T1013; G0378; J0696; J2270; J2405; J2765; J7030; J7120

== ENCOUNTER 2023-04-04 09:01 | Outpatient (CLI) | payer BC, SELFPAY | END 2023-04-04 09:02 | disposition home or self-care (01) | PROVIDERS: Visit Provider Advanced Practice Midwife | DX: Z34.93 Encounter for supervision of normal pregnancy, unspecified, third trimester (principal); Z3A.28 28 weeks gestation of pregnancy | CPT/HCPCS: 86592; 87086 ==

== ENCOUNTER 2023-04-08 08:42 | Outpatient (CLI) | payer BC, SELFPAY | END 2023-04-08 08:43 | disposition home or self-care (01) | LOC: NFLDREF 09:43 | PROVIDERS: Visit Provider Advanced Practice Midwife | DX: Z34.93 Encounter for supervision of normal pregnancy, unspecified, third trimester (principal); R73.09 Other abnormal glucose | CPT/HCPCS: 82951; 82952 ==

== ENCOUNTER 2023-04-20 15:01 | Outpatient (CLI) | payer BC, SELFPAY ==
[2023-04-20 14:50] VITALS: BP 108/65; PULSE 79; RESP 18; TEMP 36.3; O2SAT 98; BMI 29.3
[2023-04-20 15:12] VITALS: BP 101/54; PULSE 73; PULSE 74; RESP 16; TEMP 36.7; O2SAT 92; O2SAT 95
--- NOTE | 2023-04-20 15:54 | CRLHL7_ITS ---
For Patients: As a result of the Century Cures Act, medical imaging exams and procedure reports are released immediately into your electronic medical record. You may view this report before your referring provider. If you have questions, please contact your health care provider. INDICATION: Bilateral flank pain. FINDINGS: Right Kidney 13.8 x 5.5 x 5.4 cm, with cortical thickness 2.1 cm. Left kidney is 12.2 x 5.9 x 5.7 cm with cortical thickness normal at 2.4 cm. Mild-moderate right hydronephrosis, similar to 03/07/2023 abdomen ultrasound exam. Ureter appears mildly enlarged. Urinary bladder demonstrates mildly thickened wall and debris within the lumen, bilateral ureteral jets are identified. IMPRESSION: Mild to moderate right renal hydronephrosis and, and mildly enlarged ureter, but bilateral ureteral jets are identified urinary bladder. Mild urinary bladder wall thickening and debris contained within. No abnormality of left kidney. Dictated by Christian Gonzales MD @ 04/20/2023 7:10:07 PM (Electronically Signed)
[2023-04-20] MEDS: LACTATED RINGERS 1000 ML 1,000 ML IV (16:00)
[2023-04-20] MEDS: MORPHINE 4 MG/ML INJ IVP (16:00)
[2023-04-20 16:59] LABS: Appearance Urine Cloudy (Clear); Bilirubin Urine Negative (Negative); Blood Urine 2+ (Negative); Color Urine Yellow (Yellow); Glucose Urine Negative (Negative); Ketones Urine Negative (Negative); Leukocyte Esterase Urine 2+ (Negative); Nitrite Urine Negative (Negative); Protein Urine 1+ (Negative); Specific Gravity Urine 1.015 (1.000-1.030); Urobilinogen Urine 0.2 (0.2-1.0); pH Urine 7.5 (5.0-8.5)
[2023-04-20 17:56] LABS: Bacteria Urine Few; Squamous Epithelial Cell Urine Few (None-Few)
[2023-04-20] MEDS: IBUPROFEN 400 MG TABLET PO (18:10)
[2023-04-20] MEDS: NITROFURANTOIN MONOHYD MACRO 100 MG CAPSULE PO (18:10)
[2023-04-20] MEDS: ONDANSETRON ODT 4 MG TAB PO (18:15)
--- NOTE | 2023-04-20 19:10 | PC.OBNST ---
NST Note NST Note Start: 04/20/23 15:10 Freq: ONCE Status: Active Protocol: Document 04/20/23 18:30 GUME (Rec: 04/20/23 19:10 GUME [id number]) NST Note 4 Para (# of births) 3 EDC 04/29/23 Gestational Age In Weeks & Days 38 Weeks & 5 Days Patient Presented with Complaint(s) of Pain,Nausea and vomiting If Pain, describe location back pain and lower abdominal cramping Reactive Yes Appropriate for Gestational Age Yes LYNN Hanley RN Date 04/20/23 Reactive Yes Appropriate for Gestational Age Yes LYNN Rush RNC Date 04/20/23 OB NST charge Yes Complete NST Note via Write Note Yes The provider's electronic signature indicates the NST is reactive/appropriate for gestational age. *Note to provider: If an addendum is required, open the patient's chart and click on the note under the Nurse/Allied Health tab.
== END 2023-04-20 18:30 | disposition home or self-care (01) ==
LOC: OB CLI 15:02 → OB 15:06
PROVIDERS: Visit Provider Advanced Practice Midwife
DX: R10.9 Unspecified abdominal pain (principal); N13.30 Unspecified hydronephrosis
CPT/HCPCS: 59025; 76775; 81003; 81015; 87086; 87186; 99213; A9270; J2270; J7120

== ENCOUNTER 2023-04-29 16:26 | Outpatient (CLI) | payer BC, SELFPAY ==
[2023-04-29] VITALS (7 sets, daily range): BP systolic 102; BP diastolic 57; PULSE 70–77; O2SAT 94–97
[2023-04-29 17:22] LABS: Appearance Urine Clear (Clear); Bilirubin Urine Negative (Negative); Blood Urine Negative (Negative); Color Urine Yellow (Yellow); Glucose Urine Negative (Negative); Ketones Urine Negative (Negative); Leukocyte Esterase Urine Negative (Negative); Nitrite Urine Negative (Negative); Protein Urine Negative (Negative); Specific Gravity Urine 1.015 (1.000-1.030); Urobilinogen Urine 0.2 (0.2-1.0)
--- NOTE | 2023-04-29 18:39 | PC.OBNST ---
NST Note NST Note Start: 04/29/23 18:30 Freq: ONCE Status: Active Protocol: Document 04/29/23 18:30 LG (Rec: 04/29/23 18:39 LG [id number]) NST Note 4 Para (# of births) 3 EDC 05/03/23 Gestational Age In Weeks & Days 39 Weeks & 3 Days Patient Presented with Complaint(s) of Pain Other Complaints Lower abdominal pain and nausea and vomiting resulting from use of prescribed antibiotics for UTI. Reactive Yes Appropriate for Gestational Age Yes LYNN Devine,RN Date 04/29/23 Reactive Yes Appropriate for Gestational Age Yes LYNN Guzman,LYNN Date 04/29/23 OB NST charge Yes Complete NST Note via Write Note Yes The provider's electronic signature indicates the NST is reactive/appropriate for gestational age. *Note to provider: If an addendum is required, open the patient's chart and click on the note under the Nurse/Allied Health tab.
== END 2023-04-29 18:10 | disposition home or self-care (01) ==
LOC: OB OUT 16:26 → OB 16:27
PROVIDERS: Visit Provider Obstetrics & Gynecology
DX: O47.1 False labor at or after 37 completed weeks of gestation (principal); Z3A.39 39 weeks gestation of pregnancy
CPT/HCPCS: 59025; 81003; 99213; T1013

== ENCOUNTER 2023-05-15 12:55 | Outpatient (CLI) | payer BC, SELFPAY | END 2023-05-15 12:56 | disposition home or self-care (01) | PROVIDERS: Visit Provider Physician Assistant | DX: R39.9 Unspecified symptoms and signs involving the genitourinary system (principal) | CPT/HCPCS: 87086 ==

== ENCOUNTER 2023-05-24 12:08 | Outpatient (CLI) | payer BC, SELFPAY ==
[2023-05-24] VITALS (13 sets, daily range): BP systolic 87–90; BP diastolic 51–54; PULSE 64–74; RESP 16; TEMP 36.9; O2SAT 92–98
[2023-05-24 13:20] LABS: Appearance Urine Clear (Clear); Bilirubin Urine Negative (Negative); Blood Urine Negative (Negative); Color Urine Yellow (Yellow); Glucose Urine Negative (Negative); Ketones Urine Negative (Negative); Leukocyte Esterase Urine Trace (Negative); Nitrite Urine Negative (Negative); Protein Urine Negative (Negative); Specific Gravity Urine 1.025 (1.000-1.030); Urobilinogen Urine 0.2 (0.2-1.0); pH Urine 6.5 (5.0-8.5)
[2023-05-24 13:39] LABS: Bacteria Urine Few; RBC Urine 0-2 (0-2); Squamous Epithelial Cell Urine Moderate (None-Few)
--- NOTE | 2023-05-24 16:58 | PC.OBNST ---
NST Note NST Note Start: 05/24/23 12:21 Freq: ONCE Status: Active Protocol: Document 05/24/23 16:55 MMB (Rec: 05/24/23 16:56 MMB [id number]) NST Note 4 Para (# of births) 3 EDC 06/24/23 Gestational Age In Weeks & Days 35 Weeks & 4 Days Patient Presented with Complaint(s) of Decreased movement, Headache,Other Other Complaints blurred vision, abd pain Reactive Yes Appropriate for Gestational Age Yes RN Kaleb Thomas RN Date 05/24/23 Reactive Yes Appropriate for Gestational Age Yes LYNN Lovell RN Date 05/24/23 OB NST charge Yes Complete NST Note via Write Note Yes The provider's electronic signature indicates the NST is reactive/appropriate for gestational age. *Note to provider: If an addendum is required, open the patient's chart and click on the note under the Nurse/Allied Health tab.
== END 2023-05-24 14:25 | disposition home or self-care (01) ==
LOC: OB OUT 12:09 → OB 12:10
PROVIDERS: Visit Provider Obstetrics & Gynecology
DX: O36.8130 Decreased fetal movements, third trimester, not applicable or unspecified (principal); Z3A.35 35 weeks gestation of pregnancy
CPT/HCPCS: 59025; 81003; 81015; 87086; 99213; T1013

== ENCOUNTER 2023-05-29 11:00 | Outpatient (CLI) | payer BC, SELFPAY | END 2023-05-29 11:01 | disposition home or self-care (01) | LOC: NFLDREF 05-31 06:40 | PROVIDERS: Visit Provider Advanced Practice Midwife | DX: O99.013 Anemia complicating pregnancy, third trimester (principal); Z3A.36 36 weeks gestation of pregnancy | CPT/HCPCS: 87081; 87653 ==

== ENCOUNTER 2023-06-24 00:04 | Outpatient (CLI) | payer BC, SELFPAY ==
[2023-06-24 00:22] VITALS: PULSE 69; O2SAT 97
[2023-06-24 00:23] VITALS: BP 103/58; PULSE 72
--- NOTE | 2023-06-24 01:57 | PC.OBNST ---
NST Note NST Note Start: 06/24/23 00:26 Freq: ONCE Status: Active Protocol: Document 06/24/23 01:45 RADU (Rec: 06/24/23 01:57 RADU [id number]) NST Note 4 Para (# of births) 3 EDC 06/24/23 Gestational Age In Weeks & Days 40 Weeks & 0 Days Patient Presented with Complaint(s) of Contractions/cramping Reactive Yes Appropriate for Gestational Age Yes LYNN Umanzor RN Date 06/24/23 Reactive Yes Appropriate for Gestational Age Yes LYNN Hanley RN-C Date 06/24/23 OB NST charge Yes Complete NST Note via Write Note Yes The provider's electronic signature indicates the NST is reactive/appropriate for gestational age. *Note to provider: If an addendum is required, open the patient's chart and click on the note under the Nurse/Allied Health tab.
== END 2023-06-24 01:50 | disposition home or self-care (01) ==
LOC: OB OUT 00:04 → OB 00:05
PROVIDERS: Visit Provider Advanced Practice Midwife
DX: O47.1 False labor at or after 37 completed weeks of gestation (principal); Z3A.40 40 weeks gestation of pregnancy
CPT/HCPCS: 59025; 99213; T1013

== ENCOUNTER 2023-06-24 09:55 | Outpatient (CLI) | payer BC, SELFPAY ==
--- NOTE | 2023-06-24 11:00 | CRLHL7_ITS ---
For Patients: As a result of the Century Cures Act, medical imaging exams and procedure reports are released immediately into your electronic medical record. You may view this report before your referring provider. If you have questions, please contact your health care provider. INDICATION: Third trimester scan, evaluate growth. SMALL FOR DATES COMPARISON: none TECHNIQUE: Real time thrasher scale imaging of the fetus was performed. FINDINGS: Sonographic imaging demonstrates a single living intrauterine gestation. Fetus demonstrates a regular cardiac rate of 129 beats per minute. Fetus has a vertex position. The placenta lies anteriorly. Amniotic fluid volume appears normal and there is a single deepest vertical pocket: 2.2 cm. The estimated weight is 3328gm which lies at the 26th %. BPD 70th percentile. HC 26th percentile. AC 14th percentile. FL 8th percentile. The HC/AC ratio measures 1.01 range (0.89-1.06). IMPRESSION: Sonographic gestational age 38 weeks 2 days and sonographic due date 07/06/2023. Sonographic age is 12 days behind the clinical age. Estimated weight 26th percentile. Abdominal circumference 14th percentile. Dictated by Musa José MD @ 06/24/2023 12:10:59 PM (Electronically Signed)
== END 2023-06-24 09:56 | disposition home or self-care (01) ==
LOC: US 09:55
PROVIDERS: Visit Provider Advanced Practice Midwife
DX: O36.5930 Maternal care for other known or suspected poor fetal growth, third trimester, not applicable or unspecified (principal); Z3A.38 38 weeks gestation of pregnancy
CPT/HCPCS: 59025; 76816; 99213

== ENCOUNTER 2023-07-01 12:22 | Outpatient (CLI) | payer BC, SELFPAY ==
--- NOTE | 2023-07-01 12:15 | CRLHL7_ITS ---
For Patients: As a result of the Century Cures Act, medical imaging exams and procedure reports are released immediately into your electronic medical record. You may view this report before your referring provider. If you have questions, please contact your health care provider. INDICATION: POST DATES COMPARISON: 06/24/2023 TECHNIQUE: Real time thrasher scale imaging of the fetus was performed. Without non-stress testing. FINDINGS: Sonographic imaging demonstrates a single living intrauterine gestation. Fetus demonstrates a regular cardiac rate of 137 beats per minute. Fetus has a vertex position. The amniotic fluid volume appears decreased and there is a single deepest pocket measurement of 2.8 cm. CORNELL 5.9 cm. The fetus was active and demonstrated normal breathing movements. There was normal flexion and extension of the trunk and extremities. IMPRESSION: Normal biophysical profile score of 8 out of 8. Oligohydramnios. Dictated by Musa José MD @ 07/01/2023 1:15:53 PM (Electronically Signed)
== END 2023-07-01 12:23 | disposition home or self-care (01) ==
PROVIDERS: Visit Provider Advanced Practice Midwife
DX: O48.0 Post-term pregnancy (principal); O41.00X0 Oligohydramnios, unspecified trimester, not applicable or unspecified
CPT/HCPCS: 76819

== ENCOUNTER 2023-07-02 10:02 | Inpatient (IN) | payer BC, SELFPAY ==
[2023-07-02] VITALS (20 sets, daily range): BP systolic 91–117; BP diastolic 52–74; PULSE 51–75; RESP 16–18; TEMP 36.4–37; O2SAT 95–100; BMI 28.1
--- NOTE | 2023-07-02 10:18 | P.LDBA_ITS ---
Subjective History of Present Illness Narrative: Annette is a 32 yo at 41 1/7 weeks gestation being admitted to Labor and Delivery for spontaneous onset of labor. She presented to triage earlier this morning and made change after 1 hour of observation from 1 to 3 cm. She reports active movement. She denies any leaking of fluid. She is supported by her , Kenneth. She is B[place]ian speaking, senior computer specialist was present for evaluation in triage. Her full history and physical was dictated by MONE Eden on 06/12/2023. Please see this for details. Specific Issues/Plans G 4 P 3003 H&P 06/12/23 by Pankaj Nuñez CNM Partner: Kenneth Bermudian-speaking 1. N+V: Zofran helps decrease frequency of vomiting. Has zofran and compazine, usually triggered by migraines 2. Anxiety and Depression diagnosed at first OB. Counseling referral placed. Rx sent for sertraline, has not started as of 01/16 3. Headaches: Rec. hydration and magnesium supplement. Rec. caffeine when a headache begins.? Compezaine has not really helped Rx for Reglan 10mg to take at onset of headache, stop taking Tylenol (see allergies) 4. Asymptomatic bacteruria at first OB. Treated with Macrobid. PRACHI: WNL 5. Pyelonephritis requiring hospitalization PRACHI at 28 week visit: neg Keflex 500 mg QHS for rest of 05/15/2023: She reported she was told she could discontinue secondary to nausea. Will do a trial of Keflex 250 mg see if this is tolerable. She has stopped taking. Treated 04/21 for UTI with macrobid. Olegario recommends PRACHI at next visit 6. Umbilical hernia Approximately 1.5 cm, reducible She desires gen surgery consult pp to discuss repair 7. Failed 1hr gtt. 3hr passed /. No GDM. 8. Anemia, HGB 10.7 at 34 weeks Ferrous sulfate 325 every other day 9. Measuring small for dates, growth u/s ordered at 40 wks: EFW 26% 10. Called oligohydramnios by radiology but doesn't meet criteria. SDP 2.8, CORNELL 5.9. Radiology contacted to review. Previous deliveries in [place]. Patient trying to obtain records. Flu:? Declines COVID: Completed, not boosted. OB - Problem Based A/P Additional Plan (1) Spontaneous onset of labor: Status: Acute (2) Pain during labor: Status: Acute (3) Post term , 41 weeks: Status: Acute (4) Anxiety and depression: Status: Acute (5) Anemia affecting : Status: Acute Plan ASSESSMENT:? 32 yo at 41 1/7 weeks gestation? complicated by:?Anxiety/Depression, Headaches, Pyelonephritis in early , umbilical hernia, failed 1 hr gct/passed 3 hr gct, Anemia, small for dates EFW 26%ile, Labor type: spontaneous, early labor? Category 1 FHR pattern.?? Labor complicated by: none? GBS negative? ? PLAN:? 1. Routine intrapartum cares as ordered. Continue with expectant management? 2. Monitoring per policy, continuous due to occasional cat II tracing? 3. Planning unmedicated . Candidate for analgesia of choice if desired.?? 4. Patient encouraged to reposition and ambulate to promote physiologic labor and .? 5. Anticipate ? Delivery/Labor/Induction Plan Plan: expectant management OB Exam Physical Exam Vital signs: Pulse BP 60 104/64 07/02/23 08:21 07/02/23 08:21 Narrative: Vitals Reviewed Constitutional:? Alert and oriented x3 HEENT:? Normocephalic, atraumatic Neck:? Supple Lungs:? Clear to auscultation bilaterally Heart:? Regular rate and rhythm, no murmur, rub or gallop Abdomen:? Soft, nontender, and gravid. Vertex by Primo's, confirmed with cervical exam. Extremities:? No edema or erythema Cervix: 3 cm/60%/-1 station/vertex NST: 125 bpm/moderate variability/15x15 accelerations/no decelerations/contractions every 2-4 minutes
--- NOTE | 2023-07-02 12:45 | PM.OBPNL ---
Subjective Date Seen: 07/02/23 Narrative: Annette is a 32yo that presented earlier for spontaneous onset of labor. She was most recently 3 cm. She is noting more pressure and requests a cervical exam. We discussed AROM with exam which she prefers. Objective Exam: Objective: Constitutional: Alert and oriented x3, moderate distress, coping well Vital signs stable, see nurse documentation Abdomen: gravid, contractions palpate moderate with contractions and soft between Cervix: 4 cm/70%/-1 station/vertex NST: 130 bpm/moderate variability/15x15 accelerations/occasional early decelerations/contractions every 3-6 minutes Vital Signs: Last Vital Signs Temp 98.1 F 07/02/23 10:39 Pulse 60 07/02/23 12:28 Resp 16 07/02/23 10:39 BP 117/65 07/02/23 12:28 Pulse Ox 98 07/02/23 12:29 Plan Plan: ASSESSMENT:? 32 yo at 41 1/7 weeks gestation? complicated by:?Anxiety/Depression, Headaches, Pyelonephritis in early , umbilical hernia, failed 1 hr gct/passed 3 hr gct, Anemia, small for dates EFW 26%ile, Labor type: spontaneous, early labor? Category 1 FHR pattern.?? Labor complicated by: none? GBS negative? ? PLAN:? 1. Routine intrapartum cares as ordered. Proceed with AROM for augmentation, clear fluid. 2. Monitoring per policy, continuous due to occasional cat II tracing? 3. Planning unmedicated . Candidate for analgesia of choice if desired.?? 4. Patient encouraged to reposition and ambulate to promote physiologic labor and .? 5. Anticipate ?
--- NOTE | 2023-07-02 19:55 | PM.OBPNL ---
Subjective Time Seen by Provider: 18:55 Date Seen: 07/02/23 Narrative: Annette is a admitted earlier for spontaneous onset of labor. She has since stalled following AROM. She repots in the last hour contractions have really become more intense. She is feeling intermittent pressure. She is supported in labor by a family member. [employer] Consultant present during exam. Objective Exam: Objective: Constitutional: Alert and oriented x3, moderate distress, coping well Vital signs stable, see nurse documentation Abdomen: gravid, contractions palpate moderate with contractions and soft between Cervix: 5 cm/70%/-1 station/vertex Intermittent auscultation: Reassuring [place] 120-145, no accelerations or decelerations noted Vital Signs: Last Vital Signs Temp 98.3 F 07/02/23 19:13 Pulse 65 07/02/23 19:23 Resp 18 07/02/23 19:13 BP 100/56 L 07/02/23 19:23 Pulse Ox 97 07/02/23 17:11 Pelvic Exam Dilation (cm): 5 Effacement (%): 70 Station: -1 Contractions Monitor mode: Palpation Contraction Frequency: 2-5 minutes Contraction pattern: Regular Contraction intensity: Moderate Assessment Assessment: early labor Amniotic Membrane Status: AROM Plan Plan: ASSESSMENT:? 32 yo at 41 1/7 weeks gestation? complicated by:?Anxiety/Depression, Headaches, Pyelonephritis in early , umbilical hernia, failed 1 hr gct/passed 3 hr gct, Anemia, small for dates EFW 26%ile, Labor type: spontaneous, early labor? Category 1 FHR pattern.?? Labor complicated by: none? GBS negative? ? PLAN:? 1. Routine intrapartum cares as ordered. Discussed labor augmentation with pitocin vs expectant management. Patient desires expectant at this time. Reviewed risk/benefit. Strongly encouraged position changes to help labor progression if she declines augmentation. She is agreeable to this. Recommend evaluating change in contraction pattern/intensity in next 1-2 hours. 2. Monitoring per policy, continuous due to occasional cat II tracing? 3. Planning unmedicated . Candidate for analgesia of choice if desired.?? 4. Patient encouraged to reposition and ambulate to promote physiologic labor and .? 5. Anticipate ?
[2023-07-02] MEDS: LACTATED RINGERS 1000 ML 1,000 ML 125 ML IV (22:20)
[2023-07-02] MEDS: OXYTOCIN 30 unit/500 ML in NS 30 UNIT/500 ML BAG IVPB (22:27)
[2023-07-02 22:39] LABS: Basophils Percent Auto 0.3 % (0.0-3.0); Eosinophils Percent Auto 0.7 % (0.0-7.0); Hemoglobin* 11.8 gm/dL (12.0-16.0); Immature Granulocytes Pct Auto 0.7 %; Lymphocytes Percent Auto 13.1 % (20-44); Mean Corpuscular HGB Conc 33 gm/dL (32-36); Mean Corpuscular Hemoglobin 30 pg (26-34); Mean Corpuscular Volume 90 fL (80-100); Monocytes Percent Auto 5.5 % (0.0-11.0); Neutrophils Percent Auto 79.7 % (42.0-72.0); Platelet Count* 258 K/uL (140-440); RDW Coefficient of Variation % 13.4 % (11.5-15.5); Red Blood Count 3.99 m/uL (4.00-5.20); White Blood Count* 11.85 K/uL (4.50-11.00)
[2023-07-02 22:41] LABS: Slide Review Reflex No
[2023-07-03] VITALS (21 sets, daily range): BP systolic 88–134; BP diastolic 50–84; PULSE 51–70; RESP 16–18; TEMP 36.4–36.9; O2SAT 94–96
--- NOTE | 2023-07-03 04:04 | W.PM.VAGDE_ITS ---
OB Procedure Vag Delivery Mother Details Mother Details: Annette is a 32 year-old, 4, now Para 4, admitted on 07/02/23 at 41.2 weeks gestation. : 4 Para: 4 Weeks Gestation: 41.2 Admission Date: 07/02/23 Additional Details Amniotic Membrane Rupture Date: 07/02/23 Amniotic Membrane Rupture Time: 12:35 Amniotic Membrane Fluid Description: Clear Analgesia/Anesthesia Type: None Waterbirth: No Pitcoin: Yes Intrapartal Events: Labor Augmentation Delivery augmentation: rupture of membranes and pitocin Labor Onset: 18:47 Complete: 01:08 Pushin:08 Heart: heart tones during second stage were reassuring. Delivery Details Delivery Date: 07/03/23 Delivery Time: 01:13 Route of delivery: Gender: Male Viability: Alive; Heart Rate Present Position at Delivery: OA Delivery Details: Patient was admitted for spontaneous onset of labor and progressed with augmentation after her labor stalled at 4 cm. AROM performed at 1235 with clear fluid. She was agreeable to pitocin after many hours with minimal cervical c hange and irregular contractions. Patient was assumed complete with pushing at 0108. of a viable male at 0113, semi-reclined on the bed. Vertex delivered OA. No nuchal cord or shoulder. Body delivered easily and without incident. Infant passed to mothers abdomen with a vigorous cry. Cord was clamped and cut at > 5 minutes. APGARS were 8 at one minute and 9 at five minutes respectively. Mouth was bulb suctioned. Intact placenta with a 3 vessel cord delivered spontaneously at 0123. Fundus firm. Perineum intact. QBL 25 cc. Mother and baby stable; mother plans to breastfeed. Infant weight pending. 1 Minute Interval Total Score: 8 5 Minute Interval Total Score: 9 Additional Details Shoulder Dystocia: No Placenta Delivery Time: :23 Placental Delivery Description: Spontaneous Procedure Done: Global Blood Loss: 25 Laceration: None Blood Loss Measurement Type: QBL Bakri Used: No Sponge/Need Count Correct: Yes Cord Vessel Description: 3 Vessels Event Summary Status: Mother and infant were stable after delivery. Disposition: floor
[2023-07-03] MEDS: IBUPROFEN 600 MG TABLET PO (09:21)
[2023-07-03] MEDS: DOCUSATE SODIUM 100 MG CAPSULE PO (09:22)
[2023-07-04 00:14] VITALS: BP 105/67; PULSE 60; RESP 16; TEMP 36.6; O2SAT 94
[2023-07-04 06:57] LABS: Hemoglobin* 10.9 gm/dL (12.0-16.0)
--- NOTE | 2023-07-04 08:37 | PM.OBDSVD1 ---
DS: Providers Provider Time Seen by Provider: 08:37 Date Seen: 07/04/23 Date of admission: 07/02/23 10:02 Primary care physician: Not a Local Provider Admitting Clinician: Alfreda Mays CNM Consults: 07/02/23 08:26 Consult to Medicaid Service Coordinator [CONS] Routine Comment: Reason for Consult:: Chiropractor Sole Practitioner Needed Attending Physician on discharge: Alfreda Mays CNM Date of Discharge: 07/04/23 DS: Diagnosis Discharge Diagnosis (1) NVD (normal vaginal delivery): Status: Acute (2) state: Status: Acute (3) Lactating mother: Status: Acute Exam Narrative: Exam Narrative: VSS, afebrile GENERAL APPEARANCE: ?normal affect, alert, no distress MOOD: ?appropriate HEENT: normocephalic, neck supple, full ROM CHEST: ?Symmetrical chest wall movement. ?Normal respiratory effort. ?Clear to auscultation HEART: ?regular rate and rhythm ABDOMEN: ?soft, non-tender. Uterine fundus is firm, at Umbilicus, Midline and is appropriate for the stage of recovery. ?Bowel sounds present. PERINEUM: ?[mild] edema of the perineum, there is no laceration EXTREMITIES: ?normal and trace edema Const: Vital Signs, click to edit/add: Vital Signs - 24 hr 07/03/23 12:48 07/03/23 16:00 07/03/23 20:43 Temperature 98.5 F 98.1 F 98.2 F Pulse Rate [Pulse Oximeter] 66 70 61 Respiratory Rate 16 16 16 Blood Pressure [Le ft Arm] 97/51 L 94/58 L 101/64 Pulse Oximetry 96 96 94 Oxygen Delivery Me thod Room Air Room Air Room Air 07/04/23 00:14 Temperature 98 F Pulse Rate [Pulse Oximeter] 60 Respiratory Rate 16 Blood Pressure [Le ft Arm] 105/67 Pulse Oximetry 94 Oxygen Delivery Me thod Room Air Documenting provider has reviewed patient's vital signs: yes OB - DS: Summary Hospital Course Hospital Course: Annette is a 32 y.o. G 4 P 4 who was admitted to [facility] for labor. ?She had an uncomplicated NVD The patient feels well. ?The pain is well controlled with current medications. ?She has no new complaints. ?She is breast feeding and reports things are going well, though she thinks her milk supply is low.? the patient has done well.? Vitals have been stable.? She has remained afebrile.? Has a good appetite, is tolerating a general diet. ?She is voiding without difficulty.? She is passing gas and has had a bowel movement.? She is ambulating and denies any dizziness.? Has Small amount of rubra lochia. She is planning possible IUD or partner vasectomy for prevention. Problems: none plan: Discharge home with baby. Follow up in 2 weeks and 6 weeks. , may follow up with if needed Peripartum Data Infant delivery method: Vaginal complications: none [place] Infant Gender: Male Infant Discharge Plan: Home Status at Discharge Functional status at discharge: independent ambulation Overall status at discharge: patient is progressing back to baseline Time Spent with Patient Time attestation: Total time spent providing and/or coordinating discharge services: Time spent: Less than 30 minutes Discharge Plan Discharge Disposition: Home, Self-Care Date of Admission: 07/02/23 10:02 Attending Provider on Discharge: Charu Cai Primary Care Provider: Provider,Not a Local Condition: Stable Anticipated Discharge Date/Time: 07/04/23 11:00 Discharge Medications: New docusate sodium 100 mg Capsule 100 mg PO BID PRNQty: 100 0RF Rx Instructions: Take 1 cap 1-2 times a day as needed for constipation ibuprofen 600 mg Tablet 600 mg PO Q6H PRNQty: 60 0RF No Action No Known Home Medications Discharge Orders: Discharge Order (Routine); Ordered 07/04/23 Ordered By: Charu Cai Patient Education: OB Over the Counter Medication Information, OB Vaginal/Breast Feeding Additional Instructions: Followup in 2 weeks and 6 weeks Activity Level: Activity as Tolerated Discharge Diet: Regular Follow Up Appointments: Provider,Not a Local [Primary Care Provider] - Forms: [employer] Info Instructions
[2023-07-04] MEDS: DOCUSATE SODIUM 100 MG CAPSULE PO (09:19)
[2023-07-04 09:29] VITALS: BP 103/56; PULSE 62; RESP 16; TEMP 36.6; O2SAT 96
== END 2023-07-04 12:45 | disposition home or self-care (01) | DRG 560 ==
LOC: OB OUT 07-03 10:33
PROVIDERS: Admitting Provider Advanced Practice Midwife; Visit Provider Advanced Practice Midwife
DX: O48.0 Post-term pregnancy (principal); Z3A.41 41 weeks gestation of pregnancy; Z37.0 Single live birth; K42.9 Umbilical hernia without obstruction or gangrene; O99.344 Other mental disorders complicating childbirth; F41.9 Anxiety disorder, unspecified; F32.A Depression, unspecified; O99.02 Anemia complicating childbirth
CPT/HCPCS: 36415; 85018; 85025; 86850; 86900; 86901; 99213; T1013; A9270; J7120

== ENCOUNTER 2023-07-18 11:05 | Outpatient (CLI) | payer BC, SELFPAY ==
--- NOTE | 2023-07-18 11:00 | CRLHL7_ITS ---
For Patients: As a result of the Century Cures Act, medical imaging exams and procedure reports are released immediately into your electronic medical record. You may view this report before your referring provider. If you have questions, please contact your health care provider. CLINICAL HISTORY: Pelvic and perineal pain TECHNIQUE: 2D thrasher scale ultrasound. In addition color Doppler and spectral Doppler analysis was performed of the pelvis using a transabdominal approach. FINDINGS: On transabdominal imaging, the myometrium has a normal uniform echotexture. The uterus measures 10.9 x 5.6 x 8.1 cm. The endometrial lining measures 14 mm in thickness. Hypoechoic fluid is present within the endometrial canal. No abnormal vascularity. The right ovary measures 4.5 x 2.0 x 2.5 cm in size and the left ovary measures 3.9 x 1.1 x 2.4 cm. The ovaries demonstrate normal arterial and venous blood flow on color Doppler and spectral Doppler analysis. There are no suspicious fluid collections within the cul-de-sac. IMPRESSION: Blood products within the endometrial canal. No retained products of conception. Normal ovaries. No torsion or excess pelvic free fluid. Dictated by Musa José MD @ 07/18/2023 3:10:32 PM (Electronically Signed)
== END 2023-07-18 11:06 | disposition home or self-care (01) ==
LOC: US 11:07
PROVIDERS: Visit Provider Advanced Practice Midwife
DX: R10.2 Pelvic and perineal pain (principal)
CPT/HCPCS: 76856; 93976; T1013

== ENCOUNTER 2023-08-11 01:55 | Emergency (ER) | payer BC, SELFPAY ==
[2023-08-11 02:03] VITALS: BP 105/91; PULSE 106; RESP 20; TEMP 37.9; O2SAT 95
--- NOTE | 2023-08-11 02:30 | ED_ITS ---
HPI - General Adult General Chief complaint: Fever Stated complaint: fever Time Seen by Provider: 08/11/23 02:30 History of Present Illness HPI narrative: Pt aox4, ABCs intact. Pt c/o fever, body aches, and headache that started around 1630. 33-year-old woman presenting to the emergency department nearly 12 hours ago symptoms began. Feels that as if she has a fever. She is achy all over. Has some headache as well. No rashes. Has baby here. Feels that her care of baby is going well. Also accompanied by significant other. . No noted unusual breast or nipple pain. No vomiting. No diarrhea. No dysuria noted. One month . On my review of records does show that had urinary tract infections and what looks to be pyelonephritis during . Related Data Home Medications Medication Instructions Recorded Confirmed No Known Home Medications 08/11/23 08/11/23 Allergies Allergy/AdvReac Type Severity Reaction Status Date / Time acetaminophen AdvReac Unknown Rash Verified 08/14/23 08:05 Review of Systems Status of ROS: Reports: 6 or more systems reviewed and unremarkable except as noted in History and below PFSH PFSH Family History Mother Diabetes High blood pressure Maternal Grandfather Diabetes High blood pressure Social History What is your current living situation?: I presently have a place to live Problems where you live: no known problems Problems where you live details: n/a In the past 12 months, utilities in danger of being shut off: no In past 12 months, lack of transportation kept you from medical appts, meetings, work, or getting things needed for daily living: no In the past 12 mos, have been you worried that your food would run out before you had money to buy more?: never true In the past 12 mos, the food you bought just didn't last and you didn't have money to buy more?: never true Highest level of school completed/degree received: 9th grade Smoking Status: Former smoker Do you use any of these nicotine containing products: None Second hand tobacco smoke exposure: No How often do you have a drink containing alcohol: never How often do you have six or more drinks on one occasion: Never AUDIT-C Alcohol total score: 0 Non-prescribed substance use: denies use Caffeine: No How often does anyone, including family, friends and others, physically hurt you : never How often does anyone, including family, friends and others, insult or talk down to you: never How often does anyone, including family, friends and others, threaten you with harm: never How often does anyone, including family, friends and others, scream or curse at you: never Little interest or pleasure in doing things: not at all Feeling down, depressed, or hopeless: more than half the days service: No Exam Narrative: Exam Narrative: Generally seems uncomfortable. Diaphoretic. Able to be helpful with exam. Heart is tachycardic in a regular rhythm. Subtly labored in her breathing not so much tachypneic. Lungs appear to be clear. Seems congested in the nasopharynx. No facial swelling erythema or tenderness. Abdomen is soft not particularly tender. No discrete flank tenderness. Skin is quite warm without rash. Good turgor. Oropharynx is moist trace erythema. No cervical lymphadenopathy. Extremities are well perfused. Const: Vital Signs, click to edit/add: Vital Signs - 24 hr 08/11/23 02:03 08/11/23 03:04 Temperature 100.2 F H 100.2 F H Pulse Rate [Pulse Oximeter] 106 H Respiratory Rate 20 Blood Pressure [Ri ght Upper Arm] 105/91 H Pulse Oximetry 95 Oxygen Delivery Me thod Room Air Documenting provider has reviewed patient's vital signs: yes Course Vital Signs Vital signs: Initial Vital Signs Temperature 100.2 F H 08/11/23 02:03 Temperature Source Temporal Artery Scan 08/11/23 02:03 Pulse Rate 106 H 08/11/23 02:03 Pulse Rhythm Regular 08/11/23 02:03 Pulse Strength 3+ Normal 08/11/23 02:03 Respiratory Rate 20 08/11/23 02:03 Blood Pressure 105/91 H 08/11/23 02:03 Blood Pressure Mean 95 08/11/23 02:03 Blood Pressure Position Sitting 08/11/23 02:03 Pulse Oximetry 95 08/11/23 02:03 Oxygen Delivery Method Room Air 08/11/23 02:03 Vital Signs Temperature 100.2 F H 08/11/23 02:03 Pulse Rate 106 H 08/11/23 02:03 Respiratory Rate 20 08/11/23 02:03 Blood Pressure 105/91 H 08/11/23 02:03 Pulse Oximetry 95 08/11/23 02:03 Oxygen Delivery Method Room Air 08/11/23 02:03 Temperature 100.2 F H 08/11/23 03:04 Pulse Rate 73 08/11/23 06:09 Respiratory Rate 16 08/11/23 06:09 Blood Pressure 93/61 08/11/23 06:09 Pulse Oximetry 97 08/11/23 06:09 Oxygen Delivery Method Room Air 08/11/23 06:09 Medications Administered Medications: Discontinued Medications Generic Name Dose Route Start Last Admin Trade Name Freq PRN Reason Stop Dose Admin Sodium Chloride 1,000 mls @ 1,000 mls/hr 08/11/23 04:22 08/11/23 05:50 0.9 % Sodium Chloride 1000 Ml IV 08/11/23 05:21 Infused .Q1H ONE Infusion Ceftriaxone Sodium 1 gm/ 100 mls @ 200 mls/hr 08/11/23 04:47 08/11/23 05:50 Sodium Chloride IVPB 08/11/23 05:16 Infused ONCE ONE Infusion Ibuprofen 800 mg 08/11/23 02:48 08/11/23 03:04 Ibuprofen 400 Mg Tablet PO 08/11/23 02:49 800 mg ONCE ONE Administration Medical Decision Making MDM Narrative Medical decision making narrative: Really seems to have symptoms more can to COVID or influenza nonspecific viral etiology. Certainly could be urinary tract infection but other than near febrile with associated myalgias seems generally asymptomatic. I think would feel better with fluids but she feels she can manage. Did not want IV treatment when offered. Given ibuprofen. With triple swab negative did return to see if she might like some other treatment. She did agree to proceed with IV placement and fluids and this screening labs. White count notably elevated over 16,000. CRP is well somewhat elevated. Did manage to collect urine which did look to be infected. Reviewed records as below. Was given Rocephin. Following IV hydration clearly felt better, said she felt better. More energy. No longer diaphoretic; had received ibuprofen. During had urinary tract infections including pyelo. On 03/04/2023 grew pansensitive E coli and on 04/20/2023 grew pansensitive Staph saprophyticus. Answered partners concerns regarding antibiotics/treatment and . See patient discharge Lab Data Lab results reviewed: Yes I reviewed the patient's lab results Labs: Lab Results 08/11/23 08/11/23 08/11/23 Range/Units 02:10 03:32 04:40 WBC 16.56 H (4.50-11.00) K/uL RBC 4.35 (4.00-5.20) m/uL Hgb 13.1 (12.0-16.0) gm/dL Hct 39.5 (33.0-51.0) % MCV 91 (80-100) fL MCH 30 (26-34) pg MCHC 33 (32-36) gm/dL RDW Coeff of Elizabeth 13.4 (11.5-15.5) % Plt Count 299 (140-440) K/uL Neut % (Auto) 84.7 H (42.0-72.0) % Lymph % (Auto) 8.5 L (20-44) % [place] % (Auto) 5.9 (0.0-11.0) % Eos % (Auto) 0.4 (0.0-7.0) % Baso % (Auto) 0.3 (0.0-3.0) % Neut # (Auto) 14.00 H (1.7-7.0) K/uL Lymph # (Auto) 1.40 (0.90-2.90) K/uL [place] # (Auto) 1.00 H (0.00-0.90) K/UL Eos # (Auto) 0.10 (0.00-0.50) K/uL Baso # (Auto) 0.00 (0.00-0.30) K/uL Abs Immat Gran (auto) 0.00 (0.00-0.30) K/uL Imm/Tot Granulo (auto) 0.2 % Sodium 141 (135-149) mmol/L Potassium 3.4 L (3.6-5.1) mmol/L Chloride 106 (96-114) mmol/L Carbon Dioxide 21 (20-32) mmol/L Anion Gap 14 (7-15) mEq/L BUN 12 (5-24) mg/dL Creatinine 0.5 (0.5-1.5) mg/dL Estimated GFR 129 ml/min Glucose 131 H (60-115) mg/dL Calcium 9.0 (8.4-10.6) mg/dL C-Reactive Protein 2.9 H (0.5-1.0) mg/dL Urine Color Yellow (Yellow) Urine Appearance Slightly Cloudy A (Clear) Urine pH 5.5 (5.0-8.5) Ur Specific [place] 1.025 (1.000-1.030) Urine Protein Negative (Negative) Urine Glucose (UA) Negative (Negative) Urine Ketones Negative (Negative) Urine Blood 2+ A (Negative) Urine Nitrite Negative (Negative) Urine Bilirubin Negative (Negative) Urine Urobilinogen 0.2 (0.2-1.0) Ur Leukocyte Esterase 2+ A (Negative) Urine RBC 25-50 A (0-2) Urine WBC 50-100 A (0-5) Ur Squamous Epith Cells Moderate A (None-Few) Urine Bacteria Few A (None) SARS-CoV-2 (PCR) Negative SARS-CoV-2 (Negative) Influenza Type A (PCR) Negative PCR FLU A (Negative) Influenza Type B (PCR) Negative PCR FLU B (Negative) RSV (PCR) Negative PCR RSV (Negative) Discharge Plan Discharge Clinical Impression: Urinary tract infection, Fever Patient Disposition: Home w/ Parent or Adult Condition: Improved Additional Instructions: Focus on hydration with water. Return for increasing fever or inability to control fever, repeated vomiting, uncontrolled pain. Urine culture is pending here. Cephalexin from [facility]. Take this antibiotic for 9 days. Can take up to 800 mg of ibuprofen or up to 1000 mg of acetaminophen per dose. Enf?martha en la hidrataci?n con agua. Regreso por aumento de la fiebre o incapacidad para controlar la fiebre, v?mitos repetidos, dolor incontrolable. El urocultivo est? pendiente aqu?. Cefalexina de [facility]. [employer] john antibi?ant lisa 9 d?as. Puede juan antonio hasta 800 mg de ibuprofeno o hasta 1000 mg de paracetamol por dosis. Prescriptions: No Action No Known Home Medications Follow Up/Referrals: Provider,Not a Local [Primary Care Provider] - Stand Alone Forms: [employer] Info Instructions
[2023-08-11 02:54] LABS: PCR FLU A Negative PCR FLU A (Negative); PCR FLU B Negative PCR FLU B (Negative); PCR RSV Negative PCR RSV (Negative)
[2023-08-11 03:00] LABS: SARS PCR* Negative SARS-CoV-2 (Negative)
[2023-08-11 03:04] VITALS: TEMP 37.9
[2023-08-11] MEDS: IBUPROFEN 400 MG TABLET 800 MG PO (03:04)
[2023-08-11 03:41] LABS: Appearance Urine Slightly Cloudy (Clear); Bilirubin Urine Negative (Negative); Blood Urine 2+ (Negative); Color Urine Yellow (Yellow); Glucose Urine Negative (Negative); Ketones Urine Negative (Negative); Leukocyte Esterase Urine 2+ (Negative); Nitrite Urine Negative (Negative); Protein Urine Negative (Negative); Specific Gravity Urine 1.025 (1.000-1.030); Urobilinogen Urine 0.2 (0.2-1.0); pH Urine 5.5 (5.0-8.5)
[2023-08-11 03:50] LABS: Bacteria Urine Few; RBC Urine 25-50 (0-2); Squamous Epithelial Cell Urine Moderate (None-Few); WBC Urine 50-100 (0-5)
[2023-08-11] MEDS: 0.9 % SODIUM CHLORIDE 1000 ml 1,000 ML IV (04:42)
[2023-08-11 04:47] LABS: Basophils Percent Auto 0.3 % (0.0-3.0); Eosinophils Percent Auto 0.4 % (0.0-7.0); Hematocrit 39.5 % (33.0-51.0); Hemoglobin* 13.1 gm/dL (12.0-16.0); Immature Granulocytes Pct Auto 0.2 %; Lymphocytes Percent Auto 8.5 % (20-44); Mean Corpuscular HGB Conc 33 gm/dL (32-36); Mean Corpuscular Hemoglobin 30 pg (26-34); Mean Corpuscular Volume 91 fL (80-100); Monocytes Percent Auto 5.9 % (0.0-11.0); Neutrophils Percent Auto 84.7 % (42.0-72.0); Platelet Count* 299 K/uL (140-440); RDW Coefficient of Variation % 13.4 % (11.5-15.5); Red Blood Count 4.35 m/uL (4.00-5.20); White Blood Count* 16.56 K/uL (4.50-11.00)
[2023-08-11 04:49] LABS: Slide Review Reflex No
[2023-08-11 04:59] LABS: Chloride* 106 mmol/L (96-114)
[2023-08-11 05:00] LABS: Potassium* 3.4 mmol/L (3.6-5.1); Sodium* 141 mmol/L (135-149)
[2023-08-11 05:02] LABS: Creatinine* 0.5 mg/dL (0.5-1.5); Estimated Glomerular Filt Rate 129 ml/min
[2023-08-11 05:03] LABS: Anion Gap 14 mEq/L (7-15); Blood Urea Nitrogen* 12 mg/dL (5-24); Carbon Dioxide* 21 mmol/L (20-32); Glucose* 131 mg/dL (60-115)
[2023-08-11 05:06] LABS: C Reactive Protein* 2.9 mg/dL (0.5-1.0)
[2023-08-11] MEDS: cefTRIAXone 1 GM in 0.9 % SODIUM CHLORIDE Mini-bag 100 ML IVPB (05:17)
[2023-08-11 06:09] VITALS: BP 93/61; PULSE 73; RESP 16; O2SAT 97
== END 2023-08-11 06:19 | disposition home or self-care (01) ==
PROVIDERS: Emergency Provider Family Medicine
DX: R50.9 Fever, unspecified (principal); N39.0 Urinary tract infection, site not specified
CPT/HCPCS: 36415; 80048; 81001; 85025; 86140; 87040; 87086; 87631; 96365; 99284; A9270; J0696; J7030

== ENCOUNTER 2023-10-07 08:49 | Outpatient (CLI) | payer BC, SELFPAY ==
--- OUTSIDE RECORDS SUMMARY | 2023-10-07 08:52 | XMS_ITS | Clinical Summary ---
Author Name Unknown Organization [place] Address [facility] [place] [address] Care Team Providers Care Circuit Board Inspector Name Role Phone No Ref-Primary, Physician Primary Care Provider Allergies Active Allergy Reactions Criticality Noted Date Comments Penicillins 03/30/2022 Medications Medication Sig Dispensed Refills Start Date End Date Status metoclopramide (REGLAN) 10 MG tablet Take 1 tablet (10 mg) by mouth 4 times daily as needed (nausea) 15 tablet 0 03/05/2023 Active Social History Tobacco Use Types Packs/Day Years Used Date Smoking Tobacco: Never Assessed Adolescent Education Answer Date Record ed Getting School Help Needed Not on file 06/15 Sex and Gender Information Value Date Recorded Sex Assigned at Not on file Gender Identity Not on file Sexual Orientation Not on file Last Filed Vital Signs Vital Sign Reading Time Taken Comments Blood Pressure 102/52 03/05/2023 11:00 PM CDT Pulse 91 03/05/2023 11:00 PM CDT Temperature 37.4 ??C (99.4 ??F) 03/05/2023 6:18 PM CD T Respiratory Rate 18 03/05/2023 6:18 PM CDT Oxygen Saturation 97% 03/05/2023 9:27 PM CDT Inhaled Oxygen Concentration - - Weight 72.3 kg (159 lb 6.4 oz) 11/16/2022 6:11 P M TIRE MAN Height - - Body Mass Index - - Plan of Treatment Health Maintenance Due Date Last Done Comments ADVANCE CARE PLANNING 1992 ANNUAL REVIEW OF HM ORDERS 1992 HEPATITIS B IMMUNIZATION (1 of 3 - 3-dose series) 1992 YEARLY PREVENTIVE VISIT 1992 COVID-19 Vaccine (#1) 01/27/1993 HIV SCREENING 2007 HEPATITIS C SCREENING 2010 PAP 2013 DTAP/TDAP/TD IMMUNIZATION (1 - Tdap) 2017 PHQ-2 (once per calendar year) 2022 INFLUENZA VACCINE (#1) 2023 HPV IMMUNIZATION Aged Out No longer e ligible based on patient's age to complete this topic IPV IMMUNIZATION Aged Out No longer e ligible based on patient's age to complete this topic MENINGITIS IMMUNIZATION Aged Out No l onger eligible based on patient's age to complete this topic Pneumococcal Vaccine: Pediat rics (0 to 5 Years) and At-Risk Patients (6 to 64 Years) Aged Out No longer eligi ble based on patient's age to complete this topic RSV MONOCLONAL ANTIBODY Aged Out No l onger eligible based on patient's age to complete this topic Advance Directives For more information, please contact: [phone] Latest Code Status on File Code Status Date Activated Date Inactivated Comments Full Code 11/16/2022 1:11 AM 11/17/2022 1:53 PM All b asic and advanced life-sustaining interventions are performed as appropriate Question Answer Comments Code status determined by: Discussion with patient/ legal decision maker Care Teams Circuit Board Inspector Relationship Specialty Start Date End Date No Ref-Primary, Physician PCP - General 03/30/22
--- OUTSIDE RECORDS SUMMARY | 2023-10-07 08:53 | XMS_ITS | Encounter Summary ---
Author Name Unknown Organization [place] Address [facility] [place] [address] Care Team Providers Care Plaster Mixer Name Role Phone No Ref-Primary, Physician Primary Care Provider Reason for Visit * Reason Comments Abdominal Pain Vomiting Encounter Details Date Type Department Care Team (Late st Contact Info) Description 03/05/2023 7:45 PM CDT - 03/05/2023 11:16 PM CDT Emergency [facility] Emergency Dept [address] [place] [address] Pato Langston MD [facility] [address] [place] [address] Urinary tract infection without hematuria, site unspecified; Intrauterine Discharge Disposition: Home or Self Care Social History Tobacco Use Types Packs/Day Years Used Date Smoking Tobacco: Never Assessed Comments Yes Sex and Gender Information Value Date Recorded Sex Assigned at Not on file Gender Identity Not on file Sexual Orientation Not on file COVID-19 Exposure Response Date Recorded In the last 10 days, have yo u been in contact with someone who was confirmed or suspected to have Coronavirus/COVID-19? 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 * Attachments The following attachments cannot be sent through Care Everywhere. * Urinary Tract Infections in Women (Citizen Of [place]) documented in this encounter Medications at Time of Discharge Medication Sig Dispensed Refills Start Date End Date metoclopramide (REGLAN) 10 MG tablet Take 1 tablet (10 mg) by mouth 4 times daily as needed (nausea) 15 tablet 0 03/05/2023 cephALEXin (KEFLEX) 500 MG capsule Take 1 capsule (500 mg) by mouth 4 times daily for 14 days 56 capsule 0 03/05/2023 03/19/2023 ondansetron (ZOFRAN ODT) 4 MG ODT tab Take 1 tablet (4 mg) by mouth every 8 hours as needed for nausea 10 tablet 0 03/05/2023 03/08/2023 documented as of this encounter ED Notes * Scooby Martinez RN - 03/05/2023 6:18 PM CDT Diffuse low abdominal pain. Seen in ED x 2 days ago, given abx for UTI. C/o nausea. Denies vaginal bleeding. Fever and chills since yesterday. , due date 06/24/2023. VSS. ABCs intact. A/Ox4. * Pato Langston MD - 03/05/2023 6:12 PM CDT History Chief Complaint: Abdominal Pain and Vomiting The history is provided by the patient. A veterinary hospital shift lead was used (Citizen Of [place]). Annette Tomas is a five months two weeks , , 32 year old female with nausea, vomiting, and abdominal pain. The patient reports three days of diffuse abdominal pain with radiationof pain around into her low back bilaterally. Patient was evaluated in the ED two days ago, at which time she was prescribed Keflex for UTI. Patient comes to the ED because she continues to experience urinary frequency, feeling feverish, though she has not taken her temperature, nausea, and vomiting. She has been trying to take her antibiotics, but she is consistently throwing them up. Patient denies any dysuria, vaginal bleeding, or vaginal discharge. Her current due date is 06/24/23. Her next OB appointment is in three days. Independent Historian: None Review of External Notes: None Medications: No current outpatient medications on file. Past Medical History: Seizure-like activity Physical Exam Patient Vitals for the past 24 hrs: BP Temp Temp src Pulse Resp SpO2 03/05/23 2300 102/52 -- -- 91 -- -- 03/05/23 2127 95/65 -- -- -- -- 97 % 03/05/23 2117 97/59 -- -- -- -- 95 % 03/05/23 1818 120/71 99.4 ??F (37.4 ??C) Temporal 101 18 100 % Physical Exam Eyes: Conjunctiva normal Neck: Supple, no meningismus. CV: Regular rate and rhythm. No murmurs, rubs or gallops. PULM: Clear to auscultation bilateral. No respiratory distress. Good air exchange. ABD: Gravid Mild diffuse lower abdominal tenderness. Bowel sounds normal. No pulsatile masses. No rebound, guarding or rigidity. No CVA tenderness. MSK: No gross deformity to all four extremities. LYMPH: No cervical lymphadenopathy. NEURO: Alert. Good muscular tone, no atrophy. Skin: Warm, dry and intact. Psych: Mood is good and affect is appropriate. Emergency Department Course Imaging: OB US 2-3 trimester w transvag Final Result IMPRESSION: 1. Single living intrauterine gestation. 2. Cervix is long and closed measuring 3.7 cm. Report per radiology Laboratory: Labs Ordered and Resulted from Time of ED Arrival to Time of ED Departure BASIC METABOLIC PANEL - Abnormal Result Value Sodium 135 (*) Potassium 3.7 Chloride 103 Carbon Dioxide (CO2) 18 (*) Anion Gap 14 Urea Nitrogen 5.9 (*) Creatinine 0.56 Calcium 8.9 Glucose 102 (*) GFR Estimate >90 ROUTINE UA WITH MICROSCOPIC REFLEX TO CULTURE - Abnormal Color Urine Yellow Appearance Urine Slightly Cloudy (*) Glucose Urine Negative Bilirubin Urine Negative Ketones Urine 20 (*) Specific [place] Urine 1.016 Blood Urine Negative pH Urine 8.0 (*) Protein Albumin Urine 30 (*) Urobilinogen Urine Normal Nitrite Urine Negative Leukocyte Esterase Urine Large (*) Bacteria Urine Few (*) Mucus Urine Present (*) RBC Urine 1 WBC Urine >182 (*) Squamous Epithelials Urine 7 (*) HCG QUANTITATIVE - Abnormal hCG Quantitative 6,075 (*) CBC WITH PLATELETS AND DIFFERENTIAL - Abnormal WBC Count 13.6 (*) RBC Count 3.78 (*) Hemoglobin 12.7 Hematocrit 36.9 MCV 98 MCH 33.6 (*) MCHC 34.4 RDW 12.0 Platelet Count 249 % Neutrophils 92 % Lymphocytes 4 % Monocytes 4 % Eosinophils 0 % Basophils 0 % Immature Granulocytes 0 NRBCs per 100 WBC 0 Absolute Neutrophils 12.4 (*) Absolute Lymphocytes 0.6 (*) Absolute Monocytes 0.5 Absolute Eosinophils 0.0 Absolute Basophils 0.0 Absolute Immature Granulocytes 0.1 Absolute NRBCs 0.0 LACTIC ACID WHOLE BLOOD - Normal Lactic Acid 1.4 URINE CULTURE Emergency Department Course & Assessments: Interventions: Medications 0.9% sodium chloride BOLUS (0 mLs Intravenous Stopped 03/05/232110) cefTRIAXone (ROCEPHIN) 1 g vial to attach to NS 100 mL bag for ADULTS or NS 50 mL bag for PEDS (0 gIntravenous Stopped 03/05/232134) metoclopramide (REGLAN) injection 10 mg (10 mg Intravenous $Given 03/05/232119) diphenhydrAMINE (BENADRYL) injection 25 mg (25 mg Intravenous $Given 03/05/232120) Assessments: 2099 I obtained history and examined the patient as noted above. 2241 I rechecked the patient and explained findings. Prepared for discharge. Independent Interpretation (X-rays, CTs, rhythm strip): None Consultations/Discussion of Management or Tests: None Social Determinants of Health affecting care: None Disposition: The patient was discharged to home. Impression & Plan Medical Decision Makin-year-old female at 24 weeks presents with diffuse abdominal discomfort, vomiting and subjective fevers. She was recently diagnosed with UTI but has been unable to keep Keflex down due to recurrent vomiting. Although she reports back pain, she has no velma CVA tenderness. Urinalysis is consistent with infection. She has no features to draw concern for vaginitis, cervicitis or PID. Pelvic ul trasound is reassuring with single viable IUP. She has no historical or exam features to draw concern for non-obstetric related symptoms including appendicitis that would require further advanced imaging. She was given IV ceftriaxone, fluids and antiemetics. She feels much improved and is now able to tolerate oral fluid challenge. She will be discharged home. I will augment her cephalexin dosing in event of early pyelonephritis although suspect this represents cystitis based on current evaluation. Patient to urgently follow-up with primary physician assistant certified. Diagnosis: ICD-10-CM 1. Urinary tract infection without hematuria, site unspecified N39.0 2. Intrauterine Z34.90 Discharge Medications: New Prescriptions CEPHALEXIN (KEFLEX) 500 MG CAPSULE Take 1 capsule (500 mg) by mouth 4 times daily for 14 days METOCLOPRAMIDE (REGLAN) 10 MG TABLET Take 1 tablet (10 mg) by mouth 4 times daily as needed (nausea) ONDANSETRON (ZOFRAN ODT) 4 MG ODT TAB Take 1 tablet (4 mg) by mouth every 8 hours as needed for nausea Scribe Disclosure: I, Alexys Lawrence, am serving as a scribe at 8:57 PM on 03/05/2023 to document services personally performed by Pato Langston MD based on my observations and the provider's statements to me. 03/05/2023 Pato Langston MD Matthews, Jeremiah R, MD 03/05/23 6546 documented in this encounter Miscellaneous Notes * Plan of Care - Joaquin Verma RN - 03/05/2023 10:41 PM CDT Mannequin Refinisher monitored patient in the ED. 20 minute strip collected, baseline 155, moderate variability, no accels or decels. No contractions, activity present. Pt is 23w4d based on an US 11/15/2022 with a due date of 06/28/2023. documented in this encounter Plan of Treatment Not on file documented as of this encounter Procedures Procedure Name Priority Date/Time Associated Diagnosis Comments US OB >14 WEEKS TRANSVAGINAL STAT 03/05/2023 10:19 PM CDT LACTIC ACID WHOLE BLOOD STAT 03/05/2023 9:11 PM CDT ROUTINE UA WITH MICROSCOPIC REFLEX TO CULTURE STAT 03/05/2023 6:37 PM CDT URINE CULTURE STAT 03/05/2023 6:37 PM CDT EXTRA TUBE STAT 03/05/2023 6:24 PM CDT EXTRA BLOOD BANK PURPLE TOP TUBE STAT 03/05/2023 6:24 PM CDT EXTRA BLOOD BANK PURPLE TOP TUBE STAT 03/05/2023 6:24 PM CDT EXTRA RED TOP TUBE STAT 03/05/2023 6: 24 PM CDT EXTRA BLUE TOP TUBE STAT 03/05/2023 6 :24 PM CDT CBC WITH PLATELETS AND DIFFERENTIAL STAT 03/05/2023 6:24 PM CDT CBC WITH PLATELETS & DIFFERENTIAL STAT 03/05/2023 6:24 PM CDT HCG QUANTITATIVE STAT 03/05/2023 6:24 PM CDT BASIC METABOLIC PANEL STAT 03/05/2023 6:24 PM CDT NON-STRESS TEST - HIM SCAN 03/05/2023 12:00 AM CDT documented in this encounter Results * OB US 2-3 trimester w transvag (03/05/2023 10:19 PM CDT) Anatomical Region Laterality Modality Abdomen/Pelvis Ultrasound 03/05/2023 10:1 9 PM CDT Impressions 03/05/2023 10:36 PM CDT IMPRESSION: ?? 1. ??Single living intrauterine gestation. 2. ??Cervix is long and closed measuring 3.7 cm. Narrative 03/05/2023 10:36 PM CDT EXAM: US OB >14 WEEKS TRANSABDOMINAL AND TRANSVAGINAL LOCATION: [facility] DATE: 03/05/2023 INDICATION: abdominal pain COMPARISON: None. TECHNIQUE: Transabdominal and endovaginal ultrasound of the pelvis was performed with multiple static images obtained.. FINDINGS: Single intrauterine gestation, transverse presentation. Placenta is located anterior/fundal. Relationship with the cervix was not well demonstrated. Amniotic fluid is normal with MVP = 7.1 cm.. ANOMALY SCREEN: Survey of the anatomy was not performed on today's limited exam. Heart Rate: 169 bpm Cervical Length: 3.8 Procedure Note [place] MD - 03/05/2023 EXAM: US OB >14 WEEKS TRANSABDOMINAL AND TRANSVAGINAL LOCATION: [facility] DATE: 03/05/2023 INDICATION: abdominal pain COMPARISON: None. TECHNIQUE: Transabdominal and endovaginal ultrasound of the pelvis wasperformed with multiple static images obtained.. FINDINGS: Single intrauterine gestation, transverse presentation. Placentais located anterior/fundal. Relationship with the cervix was not welldemonstrated. Amniotic fluid is normal with MVP = 7.1 cm.. ANOMALY SCREEN: Survey of the anatomy was not performed ontoday's limited exam. Heart Rate: 169 bpm Cervical Length: 3.8 IMPRESSION: 1. Single living intrauterine gestation. 2. Cervix is long and closed measuring 3.7 cm. Pato Langston MD G US ORDERABLES * Lactic acid whole blood (03/05/2023 9:11 PM CDT) Lactic Acid 1.4 0.7 - 2.0 mmol/L 03/05/2023 9:24 PM CDT [facility] Blood VENOUS LINE / Unknown Venipuncture / Unknown 03/05/2023 9:11 PM CDT 03/05/2023 9:21 PM CDT Jason Antonio MD LAB - BLOOD ORDERA BLES Performing Organization Address City/State/[facility] Co de Phone Number [facility] [address] Lab (1st floor, no room number) [place] [address], [facility] [phone] * (ABNORMAL) Urine Culture (03/05/2023 6:37 PM CDT) Culture >100,000 CFU/mL Escherichia coli(A) MAYA 03/06/2023 9:31 PM CDT [facility] Urine MID-STREAM URINE SPECIMEN / Unknown Non-blood Collection / Unknown 03/05/2023 6:37 PM CDT 03/05/2023 7:07 PM CDT Narrative Organism Antibiotic Method Susceptibility Escherichia coli Ampicillin MAYA <=2 ug/mL: Susceptible Escherichia coli Ampicillin/ Sulbactam MAYA <=2 ug/mL: Susceptible Escherichia coli Piperacillin/Tazobactam MAYA <=4 ug/mL: Susceptible Escherichia coli Cefazolin MAYA <=4 ug/mL: Susceptible Comment:Cefazolin NE C breakpoints are for the treatment of uncomplicated urinary tract infections. For the treatment of systemic infections, please contact the laboratory for additional testing. Escherichia coli Cefoxitin MAYA <=4 ug/mL: Susceptible Escherichia coli Ceftazidime MAYA <=1 ug/mL: Susceptible Escherichia coli Ceftriaxone MAYA <=1 ug/mL: Susceptible Escherichia coli Cefepime MAYA <=1 ug/mL: Susceptible Escherichia coli Gentamicin MAYA <=1 ug/mL: Susceptible Escherichia coli Tobramycin MAYA <=1 ug/mL: Susceptible Escherichia coli Ciprofloxacin MAYA <=0.25 ug/mL: Susceptible Escherichia coli Levofloxacin MAYA 0.5 ug/mL: Susceptible Escherichia coli Nitrofurantoin MAYA <=16 ug/mL: Susceptible Escherichia coli Trimethoprim/Sulfamethoxazole MAYA <=1/19 ug/mL: Susceptible Pato Langston MD LAB - MICRO GENER AL ORDERABLES [facility] Inf. Diseases Diag. Lab [address] [place] [address], [facility] [phone] * (ABNORMAL) UA with Microscopic reflex to Culture (03/05/2023 6:37 PM CDT) Color Urine Yellow Colorless, Straw, Light Yellow, Yellow 03/05/2023 7:08 PM CDT LABORATORY Appearance Urine Slightly Cloudy(A) Clear 03/05/2023 7:08 PM CDT [facility] Glucose Urine Negative Negative mg/dL 03/05/2023 7:08 PM CDT [facility] Bilirubin Urine Negative Negative 7:08 PM CDT LABORATORY Ketones Urine 20(A) Negative mg/dL 03/05/2023 7:08 PM CDT LABORATORY Specific [place] Urine 1.016 1.003 - 1.035 03/05/2023 7:08 PM CDT LABORATORY Blood Urine Negative Negative 03/05/2023 7:08 PM CDT LABORATORY pH Urine 8.0(H) 5.0 - 7.0 03/05/2023 7:08 PM CDT [facility] Protein Albumin Urine 30(A) Negative mg/dL 03/05/2023 7:08 PM CDT [facility] Urobilinogen Urine Normal Normal, 2.0 mg/dL 03/05/2023 7:08 PM CDT [facility] Nitrite Urine Negative Negative 03/05/2023 7:08 PM CDT LABORATORY Leukocyte Esterase Urine Large(A) Negative 03/05/2023 7:08 PM CDT LABORATORY Bacteria Urine Few(A) None Seen /HPF 03/05/2023 7:08 PM CDT [facility] Mucus Urine Present(A) None Seen /LPF 03/05/2023 7:08 PM CDT [facility] RBC Urine 1 <=2 /HPF 03/05/2023 7:08 PM CDT [facility] WBC Urine >182(H) <=5 /HPF 03/05/2023 7:08 PM CDT [facility] Squamous Epithelials Urine 7(H) <=1 /HPF 03/05/2023 7:08 PM CDT [facility] Urine MID-STREAM URINE SPECIMEN / Unknown Non-blood Collection / Unknown 03/05/2023 6:37 PM CDT 03/05/2023 6:42 PM CDT Narrative LABORATORY - 03/05/2023 7:08 PM CDT Urine Culture ordered based on laboratory criteria Pato Langston MD LAB - URINE ORDER NAJMA [facility] [address] Lab (1st floor, no room number) [place] [address], [facility] [phone] * Extra Blood Bank Purple Top Tube (03/05/2023 6:24 PM CDT) Hold Specimen [facility] 03/05/2023 7:32 PM CDT [facility] Blood BLOOD SPECIMEN / Unknown Venipuncture / Unknown 03/05/2023 6:24 PM CDT 03/05/2023 6:30 PM CDT Pato Langston MD LAB - BLOOD ORDER NAJMA [facility] [address] Lab (1st floor, no room number) [place] [address], [place] [phone] * Extra Blood Bank Purple Top Tube (03/05/2023 6:24 PM CDT) Hold Specimen [facility] 03/05/2023 7:32 PM CDT LABORATORY Blood BLOOD SPECIMEN / Unknown Venipuncture / Unknown 03/05/2023 6:24 PM CDT 03/05/2023 6:30 PM CDT Pato Langston MD LAB - BLOOD ORDER NAJMA [facility] Lab [address] Lab (1st floor, no room number) [place] [address], [place] [phone] * Extra Red Top Tube (03/05/2023 6:24 PM CDT) Hold Specimen [facility] 03/05/2023 7:32 PM CDT [facility] Blood BLOOD SPECIMEN / Unknown Venipuncture / Unknown 03/05/2023 6:24 PM CDT 03/05/2023 6:30 PM CDT Pato Langston MD LAB - BLOOD ORDER NAJMA [facility] Lab [address] Lab (1st floor, no room number) [place] [address], [facility] [phone] * Extra Blue Top Tube (03/05/2023 6:24 PM CDT) Hold Specimen [facility] 03/05/2023 7:32 PM CDT [facility] Blood BLOOD SPECIMEN / Unknown Venipuncture / Unknown 03/05/2023 6:24 PM CDT 03/05/2023 6:30 PM CDT Pato Langston MD LAB - BLOOD ORDER NAJMA Performing Organization Address City/[facility]/ZIP Co de Phone Number [facility] Lab [address] Lab (1st floor, no room number) [place] [address], [facility] [phone] * (ABNORMAL) CBC with platelets and differential (03/05/2023 6:24 PM CDT) [facility] WBC Count 13.6(H) 4.0 - 11.0 10e3/uL 03/05/2023 6:34 PM CDT [facility] RBC Count 3.78(L) 3.80 - 5.20 10e6/uL 03/05/2023 6:34 PM CDT [facility] Hemoglobin 12.7 11.7 - 15.7 g/dL 03/05/2023 6:34 PM CDT [facility] Hematocrit 36.9 35.0 - 47.0 % 03/05/2023 6:34 PM CDT [facility] MCV 98 78 - 100 fL 03/05/2023 6:34 PM CDT [facility] MCH 33.6(H) 26.5 - 33.0 pg 03/05/2023 6:34 PM CDT [facility] MCHC 34.4 31.5 - 36.5 g/dL 03/05/2023 6:34 PM CDT [facility] RDW 12.0 10.0 - 15.0 % 03/05/2023 6:34 PM CDT [facility] Platelet Count 249 150 - 450 10e3/uL 03/05/2023 6:34 PM CDT [facility] % Neutrophils 92 % 03/05/2023 6:34 PM CDT [facility] % Lymphocytes 4 % 03/05/2023 6:34 PM CDT [facility] % Monocytes 4 % 03/05/2023 6:34 PM CDT [facility] % Eosinophils 0 % 03/05/2023 6:34 PM CDT [facility] % Basophils 0 % 03/05/2023 6:34 PM CDT [facility] % Immature Granulocytes 0 % 03/05/2023 6:34 PM CDT [facility] NRBCs per 100 WBC 0 <1 /100 023 6:34 PM CDT [facility] Absolute Neutrophils 12.4(H) 1.6 - 8.3 10e3/uL 03/05/2023 6:34 PM CDT [facility] Absolute Lymphocytes 0.6(L) 0.8 - 5.3 10e3/uL 03/05/2023 6:34 PM CDT [facility] Absolute Monocytes 0.5 0.0 - 1.3 10e3/uL 03/05/2023 6:34 PM CDT [facility] Absolute Eosinophils 0.0 0.0 - 0.7 10e3/uL 03/05/2023 6:34 PM CDT [facility] Absolute Basophils 0.0 0.0 - 0.2 10e3/uL 03/05/2023 6:34 PM CDT [facility] Absolute Immature Granulocytes 0.1 <=0.4 10e3/uL 03/05/2023 6:34 PM CDT [facility] Absolute NRBCs 0.0 10e3/uL 03/05/2023 6:34 PM CDT [facility] Blood BLOOD SPECIMEN / Unknown Venipuncture / Unknown 03/05/2023 6:24 PM CDT 03/05/2023 6:30 PM CDT Pato Langston MD LAB - BLOOD ORDER NAJMA [facility] [address] Lab (1st floor, no room number) [place] [address], [facility] [phone] * (ABNORMAL) HCG QUANTitative (blood) (03/05/2023 6:24 PM CDT) hCG Quantitative 6,075(H) <5 mIU/mL 03/05/20 7:11 PM CDT [facility] Comment: Adult: 0-5 mIU/mL for healthy non- person Neonates: Should be within normal ranges by 2 days after Blood BLOOD SPECIMEN / Unknown Venipuncture / Unknown 03/05/2023 6:24 PM CDT 03/05/2023 6:30 PM CDT Pato Langston MD LAB - BLOOD ORDER NAJMA [facility] [address] [facility] Lab (1st floor, no room number) [place] [address], [facility] [phone] * (ABNORMAL) Basic metabolic panel (BMP) (03/05/2023 6:24 PM CDT) Sodium 135(L) 136 - 145 mmol/L 03/05/2023 7:11 PM CDT [facility] Potassium 3.7 3.4 - 5.3 mmol/L 03/05/2023 7:11 PM CDT [facility] Chloride 103 98 - 107 mmol/L 03/05/2023 7:11 PM CDT [facility] Carbon Dioxide (CO2) 18(L) 22 - 29 mmol/L 03/05/2023 7:11 PM CDT [facility] Anion Gap 14 7 - 15 mmol/L 03/05/2023 7:11 PM CDT [facility] Urea Nitrogen 5.9(L) 6.0 - 20.0 mg/dL 03/05/2023 7:11 PM CDT LABORATORY Creatinine 0.56 0.51 - 0.95 mg/dL 03/05/2023 7:11 PM CDT LABORATORY Calcium 8.9 8.6 - 10.0 mg/dL 03/05/2023 7:11 PM CDT LABORATORY Glucose 102(H) 70 - 99 mg/dL 03/05/2023 7:11 PM CDT [facility] GFR Estimate >90 >60 mL/min/1.7 3m2 03/05/2023 7:11 PM CDT LABORATORY Comment:eGFR calculated usin 2020 CKD-EPI equation. Blood BLOOD SPECIMEN / Unknown Venipuncture / Unknown 03/05/2023 6:24 PM CDT 03/05/2023 6:30 PM CDT Pato Langston MD LAB - BLOOD ORDER NAJMA LABORATORY [facility] Lab [address] Lab (1st floor, no room number) [place] [address] [phone] * NON-STRESS TEST - HIM SCAN (03/05/2023 12:00 AM CDT) 03/05/2023 Provider Outside PROCEDURES documented in this encounter Visit Diagnoses Diagnosis Urinary tract infection without hematuria, site unspecified Intrauterine documented in this encounter Administered Medications Inactive Administered Medications - up to 3 most recent administrations Medication Order MAR Action Action Date Dose Rate Site 0.9% sodium chloride BOLUS Intravenous, 1,000 mL, ONCE, at 1,000 mL/hr, Administer over 1 Hours, On Sat03/05/23 at 1955, For 1 dose $New Bag 03/05/2023 7:57 PM CDT 1,000 mLs 1000 mL/hr cefTRIAXone (ROCEPHIN) 1 g vial to attach to NS 100 mL bag for ADULTS or NS 50 mL bag for PEDS STAT, 1 g, Intravenous, ONCE, On Sat03/05/23 at 2034, For 1 dose, Indications: Urinary Tract Infection $New Bag 03/05/2023 9:11 PM CDT 1 g diphenhydrAMINE (BENADRYL) injection 25 mg 25 mg, Intravenous, ONCE, On Sat03/05/23 at 0, For 1 dose $Given 03/05/2023 9:21 PM CDT 25 mg metoclopramide (REGLAN) injection 10 mg 10 mg, Intravenous, Administer over 2 Minutes, ONCE, On Sat03/05/23 at 2109, For 1 dose, Avoid use if patient has full bowel obstruction or perforation. Irritant. $Given 03/05/2023 9:20 PM CDT 10 mg documented in this encounter Active and Recently Administered Medications Times are shown in CDT. Scheduled Medication Order 03/03/2023 03/04/2023 03/05/2023 0.9% sodium chloride BOLUS (COMPLETED) Intravenous, 1,000 mL, ONCE, at 1,000 mL/hr, Administer over 1 Hours, On Sat03/05/23 at 1954, For 1 dose 1956 ($New Bag - Pro vider: Margot Talbert RN)2110 (Stopped - Provider: Lydia Pacheco RN) cefTRIAXone (ROCEPHIN) 1 g vial to attach to NS 100 mL bag for ADULTS or NS 50 mL bag for PEDS (COMPLETED) STAT, 1 g, Intravenous, ONCE, On Sat03/05/23 at 2034, For 1 dose, Indications: Urinary Tract Infection 2110 ($New Bag - Pro vider: Lydia Pacheco RN)2134 (Stopped - Provider: Lydia Pacheco RN) diphenhydrAMINE (BENADRYL) injection 25 mg (COMPLETED) 25 mg, Intravenous, ONCE, On Sat03/05/23 at 2109, For 1 dose 2120 ($Given - Provi nubia: Lydia Pacheco RN) metoclopramide (REGLAN) injection 10 mg (COMPLETED) 10 mg, Intravenous, Administer over 2 Minutes, ONCE, On Sat03/05/23 at 2109, For 1 dose, Avoid use if patient has full bowel obstruction or perforation. Irritant. 2119 ($Given - Provi nubia: Lydia Pacheco RN) documented in this encounter Care Teams Plaster Mixer Relationship Specialty Start Date End Date No Ref-Primary, Physician PCP - General 03/30/22 documented as of this encounter
--- OUTSIDE RECORDS SUMMARY | 2023-10-07 08:53 | XMS_ITS | Encounter Summary ---
Author Name Unknown Organization [place] Address Formerly [facility], [facility] [place] [address] Care Team Providers Care Oil And Gas Principal Name Role Phone No Ref-Primary, Physician Primary Care Provider Reason for Visit * Reason Comments Seizures * Auth/Cert (Routine) Specialty Diagnoses / Procedures Referred By Morro narayanan Referred To Contact EMERGENCY MEDICINE Diagnoses Vaginal spotting Seizure-like activity (H) 7 weeks gestation of Vaginal spotting Emergency Dept [address] [place] [address] Referral ID Status Reason Start Date Expiration Date Visits Re quested Visits Authorized [id number] 1 1 Encounter Details Date Type Department Care Team (Late st Contact Info) Description 11/15/2022 8:55 PM SHAKE PACKER - 11/17/2022 11:53 AM [facility] Emergency [facility] Observation Dept [address] [place] [address] Brandon Xavier MD [facility] [address] [place] [id number] Jeannine Younger DO [facility] [address] [facility] [place] [id number] Won Harrington MD [address] [place] [address] Justin Ayala MD [facility] [address] [place], [place] [id number] Seizure-like activity (H); 7 weeks gestation of ; Vaginal spotting Discharge Disposition: Home or Self Care Social History Tobacco Use Types Packs/Day Years Used Date Smoking Tobacco: Never Assessed Comments Yes Sex and Gender Information Value Date Recorded Sex Assigned at Not on file Gender Identity Not on file Sexual Orientation Not on file documented as of this encounter Last Filed Vital Signs Vital Sign Reading Time Taken Comments Blood Pressure 86/50 11/17/2022 3:47 AM SHAKE PACKER Pulse 53 11/17/2022 3:47 AM SHAKE PACKER Temperature 36.6 ??C (97.8 ??F) 11/17/2022 3:47 AM CS T Respiratory Rate 16 11/17/2022 3:47 AM SHAKE PACKER Oxygen Saturation 99% 11/17/2022 3:47 AM SHAKE PACKER Inhaled Oxygen Concentration - - Weight 72.3 kg (159 lb 6.4 oz) 11/16/2022 6:11 P M SHAKE PACKER Height - - Body Mass Index - - documented in this encounter Discharge Summaries * Christopher Joyner MD - 11/17/2022 11:53 AM CST Admit Date: 11/15/2022 Discharge Date: 11/17/2022 PRINCIPAL FINAL DIAGNOSES: 1. Episode of dizziness/lightheadedness, possible loss of consciousness. Suspect fainting episode, possibly related to dehydration and emotional stress. Initially seizure was considered, but felt unlikely by Neurology. Pseudoseizure a possibility. 2. A 7-week . 3. Constipation. PRINCIPAL PROCEDURES THIS ADMISSION: 1. Neurology consultation. 2. Head CT scan showing no acute findings. 3. C-spine CT scan showing no acute findings. 4. Obstetrics ultrasound showing single living intrauterine gestation at 7 weeks 6 days. 5. Obstetrics consultation. REASON FOR ADMISSION: Please see dictated history and physical. In brief, Ms. Baxter is a 32-year-old female, currently 7 weeks . She presented to the hospital after she experienced some dizziness and lightheadedness and fell to the ground. Her spouse apparently reported she had a body shaking and eyes rolled back to the back of her head, which lasted roughly 15 minutes until EMS arrived and she received Versed. Events occurred in the setting of recent stressors including finding out that she was 7 weeks several days ago and having an argument with her spouse immediately prior to the episode. She also had been working all day without eating or drinking. She was admitted to the hospitalist service. HOSPITAL COURSE: Dizziness/lightheadedness, fall, possible presyncopal versus syncopal event: Symptoms occurred in the setting of poor oral intake and possible dehydration and significant recent emotional stress, including an argument with a spouse. Suspect overall symptoms likely due to dehydration and stress, consideration was for possible pseudoseizure. Initially, there was concern about a seizure. The patient was seen by Neurology who did not think her symptoms were consistent with a seizure. Head CT scan was negative. The patient received IV fluids while hospitalized. Symptoms resolved. The patient was not prescribed any antiepileptics as seizure felt to be unlikely and she is being discharged home today. DISCHARGE MEDICATIONS: No prescribed medications on discharge. FOLLOWUP INSTRUCTIONS: Follow up with primary MD as needed. Follow up with an obstetrics physician within the next 1-2 weeks for your . You were provided information from the home demonstrator who saw you this admission to help arrange a followup appointment with obstetrics. I examined the patient on day of discharge. I communicated with this patient using a Armenian certified court/medical interpreter through iPad at bedside. The patient will be discharged home today. Christopher Joyner MD MT: SPMT Name: JACKIE ADAMS Account: [id number] : 1990 Service Date: 11/15/2022 Discharge Date: 11/17/2022 Document: [id number] E PACKER documented in this encounter Progress Notes * Christopher Joyner MD - 11/17/2022 10:35 AM CST I saw and examined this patient today. She appears stable for discharge home today. Seizure is not suspected; likely event that prompted admit was probable dehydration combined with recent emotional stressors, ? Pseudoseizure. E PACKER * Alexandre Yu MD - 11/16/2022 6:03 PM CST Patient seen by me, interviewed and physical exam performed. I have review the chart, lab work-up, imaging and vitals. She presented after a possible seizure event that happened at home last night. She has no personal history of seizure, maternal ankle suffered from seizures and in 2019 from COVID. Otherwise shereports to be healthy. Currently she is and she has 3 children at home 13-9- 5. She had normal pregnancies and delivery. She denies diabetes and other comorbidities. Vital signs: Temp: 98.4 ??F (36.9 ??C) Temp src: Oral BP: (Abnormal) 89/58 Pulse: 56 Resp: 20 SpO2: 99 % O2 Device: None (Room air) Oxygen Delivery: 2 LPM There is no height or weight on file to calculate BMI. She is pending to be seen by RECREATION THERAPY AIDES TEACHER and neurology. Will follow recommendations. I agree with assessment and plan as outlined by my partner Dr. Harrington. E PACKER documented in this encounter H&P Notes * Won Harrington MD - 11/16/2022 12:[address] [facility] Hospitalist Admission Note Name: Jackie Tomas Date of : 1990 Age: [age] year old Date of admission: 11/15/2022 Primary care provider: No Ref-Primary, Physician Chief Complaint: seizure Assessment and Plan: Suspect tonic clonic seizure: Patient remembers standing up after an argument with her spouse and then falling to the ground after experiencing dizziness/lightheadedness. Per spouse she had whole body shaking and then her eyes rolled to the back of her head and the left which lasted roughly 15 minutes until EMS arrived and she received 5 mg of Versed. She had bladder incontinence, but did not bite her tongue. Sounds like there was a postictal period, but she had received Versed. Lactic acid elevated at 4 which quickly resolves which would also support seizure. She has never had a seizure. Reports an uncle with history of seizure. She reports a mild headache and some neck stiffness, but thisis very mild at this time and I doubt meningitis or encephalitis contributing. I do not think LP iswarranted at this time. Noncontrast head CT unremarkable. She was started on cephalexin for UTI symptoms 4-5 days ago which per up-to-date can lower seizure threshold. She does not use alcohol. UDS is positive for benzodiazepines that she received from EMS. She had not eaten all day and had decreased p.o. intake so a syncopal episode is possible, but I would not expect this long of tonic-clonic like activity. Although suspicious for first-time generalized tonic-clonic seizure I do think a pseudoseizure is possible given her high stress environment with finding out she is 7 weeks a few days ago, having an argument with her spouse immediately prior to the episode, having worked all day without eating or drinking, and having 3 other children that are currently in [place]. She would not look at the me or her spouse during the encounter, but she spoke separately with staff when she was tearful and says she felt safe at home. If she was intentionally forcibly shaking for that long it would also explain elevated lactic acid regardless if it was secondary to seizure or not. -Consult general neurology for seizure evaluation. On-call neurology did not recommend starting antiepileptic. Question if brain MRI and/or EEG recommended. -Seizure precautions. As needed IV lorazepam 2 mg ordered for any seizure activity -Add on CK level -CBC and BMP in the morning Elevated lactic acid: Lactic acid elevated at 4.4 with repeat down to 1.3 after 1 L NS. Suspect this is secondary to seizure/shaking episode in the setting of hypovolemia as above and not indicative of sepsis. -Still seems hypovolemic on exam. NS at 100 mL/h for 10 hours overnight Addendum: Blood pressure 88/63. Give additional 1 L NS now. Recheck lactic acid this morning along with follow-up CBC for leukocytosis. Continue to hold on any antibiotics. UTI Leukocytosis: She was having urinary frequency, left lower quadrant abdominal pain, and chills. Diagnosed with UTI when also diagnosed with 4-5 days ago. Prescribed cephalexin 500 mg twice daily for 7 days which she has been taking. Leukocytosis at 13.9 which I suspect is stress demargination from her seizure/shaking episode as opposed to sign of infection. Urinalysis shows 3 WBCs, trace blood, negative LE and nitrite along with ketones. Has not eaten all day which explains the ketones. -Per up-to-date Keflex can lower seizure threshold so I would hold off on further antibiotics for now and repeat CBC in the morning to make sure leukocytosis resolves : She found out she was on Saturday after presenting with some vomiting and abdominal pain. She is reporting some left lower quadrant abdominal pain and she developed new mild vaginalbleeding/spotting today. Ultrasound in the ER shows a single living intrauterine gestation at 7 weeks 6 days. Denies any previous complications from her 3 other pregnancies. -Consult RECREATION THERAPY AIDES TEACHER given the bleeding -Zofran as needed for nausea Constipation: Reporting some left lower quadrant abdominal pain and tenderness on exam. She has been constipated which I suspect is the etiology for the abdominal discomfort although will ask OB to evaluate her given the vaginal bleeding/spotting. -Start senna-Colace twice daily scheduled and daily MiraLAX as needed DVT Prophylaxis: Low Risk/Ambulatory with no VTE prophylaxis indicated Code Status: Full Code FEN: regular diet, NS at 100 mL/h for 10 hours overnight Discharge Dispo: home Estimated Disch Date / # of Days until Disch: admit to observation for possible first time seizure work-up and further monitoring. History of Present Illness: Entire encounter completed with assistance of professional certified court/medical interpreter via phone. Jackie Tomas is a 32 year old Armenian-speaking female with no significant past medical history who presents with concerns for possible seizure. She was seen on Saturday in [place], 4 days ago for some vomiting and abdominal pain. She found out that she was , roughly 7 weeks alongat that time. She was also prescribed cephalexin which she has been taking for suspected UTI as shewas having urinary frequency as well and Zofran for nausea. She worked all day with her spouse and she had not had anything to eat or drink. She had been feeling somewhat dizzy. They were having an argument when she then stood up and then she did feel dizzy and fell down. She does not remember anyth ing after this. Her spouse had his back turned at that time, but when he turned around after hearing her lying on the ground her whole body was shaking. Her eyes rolled to the back of her head and tothe left. He immediately called EMS and they asked her to look for the medications that she had just started. He said it took at least 15 minutes for EMS to arrive and she had continuous shaking until they arrived and gave her Versed. She reports bladder incontinence. She did not bite her lip. It sounds like there may have been some confusion or sedation afterwards, but she did receive Versed. She denies any seizure history. In addition to the urinary frequency and nausea she is also reporting recent chills without fever, mild headache, some neck discomfort when specifically asked, and constipation. Earlier today she had left lower quadrant abdominal pain and she did also have a small amount of vaginal bleeding and spotting. She reports no complications from her other 3 pregnancies. Currently her children are in [place]. She was tearful in the ER and spoken to separately by staff with her spouse not present and she reported feeling safe at home. History obtained from patient, medical record, and from Dr. Xavier in the emergency department. Blood pressure 95/62 up to 109/61, heart rate 70s, temperature 97.7 ??F, oxygen 93 to 100% on room air. Leukocytosis at 13.9, hemoglobin 12.8, platelet count 304. Lactic acid was elevated at 4.4 with repeat down to 1.3 after 1 L normal saline. VBG showed pH 7.34, PCO2 34, PO2 39, bicarb 19. BMP withinnormal limit except for bicarb of 18. Blood glucose normal at 126. Urinalysis shows 1 WC, negative LE, negative nitrite. Ethanol level undetectable. UDS positive for benzodiazepines. EKG shows NSR with normal intervals. Noncontrast head CT and C-spine negative for any acute pathology. She received 1 L NS and 1000 mg acetaminophen for her mild headache. No further seizure activity in the ER and she is alert and oriented with normal neuro exam. Neurology on-call was consulted who did not recommend starting any antiepileptic medication at this time. She will be admitted observation with neurology and OB consultation during the day. Clinically Significant Risk Factors Present on Admission # Anion Gap Metabolic Acidosis: Highest Anion Gap = 19 mmol/L in last 2 days, will monitor and treat as appropriate Past Medical History reviewed: Denies any significant past medical history, specifically no seizures Past Surgical History reviewed: No past surgical history on file. Social History reviewed: She does not smoke or use alcohol She has 3 other children, currently they are in [place] Family History reviewed: She reports a history of 1 uncle having a seizure Allergies: Allergies Allergen Reactions ??? Penicillins Medications: Ondansetron as needed Cephalexin 500 mg twice daily for 7 days Review of Systems: A Comprehensive greater than 10 system review of systems was carried out. Pertinent positives and negatives are noted above. Otherwise negative. Physical Exam: Blood pressure 109/61, pulse 85, temperature 97.7 ??F (36.5 ??C), temperature source Rectal, resp. rate 24, SpO2 99 %. Wt Readings from Last 1 Encounters: No data found for Wt Exam: Constitutional: Awake, NAD Eyes: sclera white, PERRL HEENT: atraumatic, dry mucous membranes Respiratory: no respiratory distress, lungs cta bilaterally, no crackles or wheeze Cardiovascular: RRR. No murmur GI: Soft, not distended, mild left lower quadrant tenderness to palpation without guarding, bowel sounds present Skin: no rash or lesions, acyanotic Musculoskeletal/extremities: atraumatic, no major deformities. No lower extremity edema Neurologic: A&O, strength 5 out of 5 in all extremities, light touch sensation intact, answers all questions appropriately via certified court/medical interpreter Psychiatric: calm and cooperative. Would not look at provider or spouse during the encounter. Soft-spoken. Lab and imaging data personally reviewed: Labs: Recent Labs Lab 11/15/222107 PH 7.34 HCO3V 19* Recent Labs Lab 11/15/222108 WBC 13.9* HGB 12.8 HCT 37.7 MCV 95 PLT 304 Recent Labs Lab 11/15/222108 NA 138 POTASSIUM 3.4 CHLORIDE 101 CO2 18* ANIONGAP 19* GLC 126* BUN 10.9 CR 0.63 GFRESTIMATED >90 BELÉN 9.3 Recent Labs Lab 11/15/22 2238 11/15/22 2108 LACT 1.3 4.4* Recent Labs Lab 11/15/22 2302 COLOR Yellow APPEARANCE Clear URINEGLC Negative URINEBILI Negative URINEKETONE 80* SG 1.035 UBLD Trace* URINEPH 6.0 PROTEIN 30* NITRITE Negative LEUKEST Negative RBCU 1 WBCU 3 Serum hCG positive Quantitative hCG 76,467 Magnesium 1.9 Ethanol level undetectable UDS positive for benzodiazepines EKG: NSR Imaging: Recent Results (from the past 24 hour(s)) US OB < 14 Weeks Single Narrative EXAM: US OB < 14 WEEKS SINGLE-TRANSABDOMINAL LOCATION: [facility] DATE/TIME: 11/15/2022 10:26 PM INDICATION: Lower abdominal pain, vaginal bleeding COMPARISON: None. TECHNIQUE: Transabdominal scans were performed. Endovaginal ultrasound was performed to better visualize the embryo. FINDINGS: UTERUS: Single living intrauterine gestation sac. CRL: Measures 1.5 cm, equals 7 weeks 6 days. HEART RATE: 156 bpm. AMNIOTIC FLUID: Normal. PLACENTA: Not yet formed. No evidence for sub-chorionic hemorrhage. RIGHT OVARY: 3.4 x 3.2 cm simple cyst. LEFT OVARY: Normal. Impression IMPRESSION: 1. Single living intrauterine gestation at 7 weeks 6 days, EDC 06/28/2023. CT Head w/o Contrast Narrative EXAM: CT HEAD W/O CONTRAST, CT CERVICAL SPINE W/O CONTRAST LOCATION: [facility] DATE/TIME: 11/15/2022 10:27 PM INDICATION: Seizure, fall, head and neck trauma COMPARISON: None. TECHNIQUE: 1) Routine CT Head without IV contrast. Multiplanar reformats. Dose reduction techniques were used. 2) Routine CT Cervical Spine without IV contrast. Multiplanar reformats. Dose reduction techniques were used. FINDINGS: HEAD CT: INTRACRANIAL CONTENTS: No intracranial hemorrhage, extraaxial collection, or mass effect. No CT evidence of acute infarct. Normal parenchymal attenuation. Normal ventricles and sulci. VISUALIZED ORBITS/SINUSES/MASTOIDS: No intraorbital abnormality. Remote left lamina papyracea deformity. No significant paranasal sinus mucosal disease. No middle ear or mastoid effusion. BONES/SOFT TISSUES: No acute abnormality. CERVICAL SPINE CT: VERTEBRA: Normal vertebral body heights. Reversal of the usual cervical lordosis. No acute compression fracture or posttraumatic subluxation. CANAL/FORAMINA: No significant canal or neural foraminal stenosis. PARASPINAL: No acute extraspinal abnormality. Impression IMPRESSION: HEAD CT: 1. No acute intracranial process. CERVICAL SPINE CT: 1. No CT evidence for acute fracture or post traumatic subluxation. Cervical spine CT w/o contrast Narrative EXAM: CT HEAD W/O CONTRAST, CT CERVICAL SPINE W/O CONTRAST LOCATION: [facility] DATE/TIME: 11/15/2022 10:27 PM INDICATION: Seizure, fall, head and neck trauma COMPARISON: None. TECHNIQUE: 1) Routine CT Head without IV contrast. Multiplanar reformats. Dose reduction techniques were used. 2) Routine CT Cervical Spine without IV contrast. Multiplanar reformats. Dose reduction techniques were used. FINDINGS: HEAD CT: INTRACRANIAL CONTENTS: No intracranial hemorrhage, extraaxial collection, or mass effect. No CT evidence of acute infarct. Normal parenchymal attenuation. Normal ventricles and sulci. VISUALIZED ORBITS/SINUSES/MASTOIDS: No intraorbital abnormality. Remote left lamina papyracea deformity. No significant paranasal sinus mucosal disease. No middle ear or mastoid effusion. BONES/SOFT TISSUES: No acute abnormality. CERVICAL SPINE CT: VERTEBRA: Normal vertebral body heights. Reversal of the usual cervical lordosis. No acute compression fracture or posttraumatic subluxation. CANAL/FORAMINA: No significant canal or neural foraminal stenosis. PARASPINAL: No acute extraspinal abnormality. Impression IMPRESSION: HEAD CT: 1. No acute intracranial process. CERVICAL SPINE CT: 1. No CT evidence for acute fracture or post traumatic subluxation. Won Harrington MD Hospitalist [facility] (In part due to requiring a telephone spanish medical interpreter and the complexity of the HPI along with answering questions of the patient and spouse this encounter did take 80 minutes of time to complete. Additionally, time was spent personally reviewing her vital signs, labs, her CT head, and outside paper records from [facility].) E PACKER documented in this encounter Consult Notes * Thee White MD - 11/16/2022 12:38 PM CST Images from the original note were not included. Neurology Consult Note [facility] [November 16, 2022] Admission Date: 11/15/2022 Hospital Day: 2 Code Status: Full Code Patient: Jackie Tomas : 1990 CC: Chief Complaint Patient presents with ??? Seizures Consult Request: Referring Provider: Won Harrington MD Indication for Consultation: Question Answer Which Neurology Group will follow this patient? [facility] Patient to be seen Routine within 24 hrs Reason for Consult possible first time tonic cloniz seizure, 7 weeks Note: Specific question for forestry consultant Requesting provider? Hospitalist (if different from attending physician) Primary Care Provider: No Ref-Primary, Physician HPI: Jackie Tomas is a 32 year old year old [place] woman who presents with two reported seizures prior to arrival. I have been asked to evaluate her for possible seizures. She reports that she came in from outside and was sitting on her bed. She had an argument with her significant other, arose from bed, felt light headed, and fell to the floor. She reports remembering the lightheadedness and fall, striking her head and abdomen in the fall, and feeling short of breath at the time. But shepreviously told me that she recalled nothing after she fell until she was in the ER. She reportedlyhad a repeat seizure after EMS arrived, reportedly lasting 7 minutes. She was given IM Versed in her left deltoid by EMS and apparently became awake and alert subsequent to the injection. She reports that she felt significant pain in her shoulder immediately after her reported second prolonged seizure, and she attributes the pain to the deltoid injection. She denies injuring her head, neck, or arms during her spells, and denies biting her tongue. However, she reports urinary incontinence during one of her spells. She has not been given antiepileptics, and has had no further spells since admission to the ER. She was described as awake and alert on admission to the ER. Head and cervical CT were reported as benign. On specific questioning she reports no prior history of seizures, and no family history of epilepsy, though one note in her chart indicated that she reported seizures in an uncle. She was diagnosed with in the ER several days ago during evaluation for nausea and vomiting, estimated at 7 6/7 weeks. A complete review of symptoms was performed including vascular, infectious, cardiovascular, pulmonary, gastrointestinal, endocrinological, hematologic, dermatologic, musculoskeletal, and neurological. All were normal except as above. PAST MEDICAL HISTORY: Allergy: Allergies Allergen Reactions ??? Penicillins Tobacco: History Smoking Status ??? Not on file Smokeless Tobacco ??? Not on file Alcohol: Social History Substance and Sexual Activity Alcohol use: Not on file MEDICATIONS: Currently Scheduled Medications ??? senna-docusate 1 tablet Oral BID Or ??? senna-docusate 2 tablet Oral BID ??? sodium chloride (PF) 3 mL Intracatheter Q8H Home Medications (Not in a hospital admission) MEDICAL HISTORY No past medical history on file. SURGICAL HISTORY No past surgical history on file. FAMILY HISTORY No family history on file. SOCIAL HISTORY Social History Socioeconomic History ??? Marital status: Single GENERAL EXAMINATION She is a young, well-developed, well-nourished woman, Data Unavailable and 0 lbs 0 oz. Initial blood pressure was 89/58 with pulses 56, more recently 96/60 with pulses 66 and regular. Her conjunctivae are normal. Her oropharynx is without lesions or inflammation. She has no tongue bruising or lacerations. Skin examination is unremarkable. She has no pretibial edema, rashes, or unusual lesions. Nail examination shows no clubbing, cyanosis, or deformities. Respiratory examination is unremarkable,with rate of 20-22, unlabored. She is afebrile. Temp: 98.2 ??F (36.8 ??C) Temp src: Oral BP: 96/60 There is no height or weight on file to calculate BMI. Resp: Resp: 25 SpO2: SpO2: 98 % O2 D: O2 Device: None (Room air) NEUROLOGICAL EXAMINATION Mental Status: She speaks Armenian, and communication is through a telephone spanish medical interpreter. She is awake, alert, and oriented X3. She was speaking on her cell phone when I entered the room. Her speech is spontaneous and fluent. She has no dysarthria or aphasia. Station and Gait: She is lying on her gurney in the ER. Skull and Spine: Her head is atraumatic. Her spine is non-tender. Cranial Nerves: Her visual gandhi are full. Extraocular movements are intact. Pursuits are smooth. She has no nystagmus. Her pupils are reactive. Her face is symmetric at rest and with movement. She has no ptosis. Her tongue is midline.Shoulder shrug is symmetric. Hearing is intact. Motor: Muscle bulk is good, and tone is normal in her arms and legs. She is able to fist bump with her right hand without weakness or ataxia. She has no focal weakness proximally or distally in her arms or legs. Sensory: Sensation is symmetric in her arms and legs. Coordination: She has no resting, postural, or action tremor. LABORATORY RESULTS SMA-7: Recent Labs Lab Test 11/16/22 0851 11/15/22 2109 NA 136 138 POTASSIUM 3.4 3.4 CHLORIDE 106 101 CO2 19* 18* GLC 145* 126* BUN 7.6 10.9 CR 0.51 0.63 BELÉN 8.2* 9.3 CMP: Recent Labs Lab 11/16/22 0851 11/15/222108 BELÉN 8.2* 9.3 MAG -- 1.9 CBC: Recent Labs Lab 11/16/22 0851 11/15/222108 WBC 6.8 13.9* RBC 3.56* 3.96 HGB 11.5* 12.8 HCT 34.8* 37.7 MCV 98 95 PLT 261 304 U/A: No components found for: URINE Recent Labs Lab Test 11/15/222301 COLOR Yellow APPEARANCE Clear URINEGLC Negative URINEBILI Negative URINEKETONE 80* SG 1.035 UBLD Trace* URINEPH 6.0 PROTEIN 30* NITRITE Negative LEUKEST Negative RBCU 1 WBCU 3 CK: No results found for: CKTOTAL ESR: No lab results found. CRP: No results found for: CRP ABG: Recent Labs Lab 11/15/222107 PH 7.34 Blood Cultures: No results for input(s): CULT in the last 168 hours. Unresulted Labs Ordered in the Past 30 Days of this Admission No orders found for last 31 day(s). IMAGING RESULTS US OB < 14 Weeks Single Result Date: 11/15/2022 EXAM: US OB < 14 WEEKS SINGLE-TRANSABDOMINAL LOCATION: [facility] DATE/TIME: 11/15/2022 10:26 PM INDICATION: Lower abdominal pain, vaginal bleeding COMPARISON: None. TECHNIQUE: Transabdominal scans were performed. Endovaginal ultrasound was performed to better visualize theembryo. FINDINGS: UTERUS: Single living intrauterine gestation sac. CRL: Measures 1.5 cm, equals 7 weeks 6 days. HEART RATE: 156 bpm. AMNIOTIC FLUID: Normal. PLACENTA: Not yet formed. No evidence for sub-chorionic hemorrhage. RIGHT OVARY: 3.4 x 3.2 cm simple cyst. LEFT OVARY: Normal. IMPRESSION: 1. Single living intrauterine gestation at 7 weeks 6 days, EDC 06/28/2023. Cervical spine CT w/o contrast Result Date: 11/15/2022 EXAM: CT HEAD W/O CONTRAST, CT CERVICAL SPINE W/O CONTRAST LOCATION: [facility] DATE/TIME: 11/15/2022 10:27 PM INDICATION: Seizure, fall, head and neck trauma COMPARISON: None. TECHNIQUE: 1) Routine CT Head without IV contrast. Multiplanar reformats. Dose reduction techniques were used. 2) Routine CT Cervical Spine without IV contrast. Multiplanar reformats. Dose reduction techniques were used. FINDINGS: HEAD CT: INTRACRANIAL CONTENTS: No intracranial hemorrhage, extraaxial collection, or mass effect. No CT evidence of acute infarct. Normal parenchymal attenuation. Normal ventricles and sulci. VISUALIZED ORBITS/SINUSES/MASTOIDS: No intraorbital abnormality. Remote left lamina papyracea deformity. No significant paranasal sinus mucosal disease. No middle ear or mastoid effusion. BONES/SOFT TISSUES: No acute abnormality. CERVICAL SPINE CT: VERTEBRA: Normal vertebral body heights. Reversal of the usual cervical lordosis. No acute compression fracture or posttraumatic subluxation. CANAL/FORAMINA: No significant canal or neural foraminal stenosis. PARASPINAL: No acute extraspinal abnormality. IMPRESSION: HEAD CT: 1. No acute intracranial process. CERVICAL SPINE CT: 1. No CT evidence for acute fracture or post traumatic subluxation. CT Head w/o Contrast Result Date: 11/15/2022 EXAM: CT HEAD W/O CONTRAST, CT CERVICAL SPINE W/O CONTRAST LOCATION: [facility] DATE/TIME: 11/15/2022 10:27 PM INDICATION: Seizure, fall, head and neck trauma COMPARISON: None. TECHNIQUE: 1) Routine CT Head without IV contrast. Multiplanar reformats. Dose reduction techniques were used. 2) Routine CT Cervical Spine without IV contrast. Multiplanar reformats. Dose reduction techniques were used. FINDINGS: HEAD CT: INTRACRANIAL CONTENTS: No intracranial hemorrhage, extraaxial collection, or mass effect. No CT evidence of acute infarct. Normal parenchymal attenuation. Normal ventricles and sulci. VISUALIZED ORBITS/SINUSES/MASTOIDS: No intraorbital abnormality. Remote left lamina papyracea deformity. No significant paranasal sinus mucosal disease. No middle ear or mastoid effusion. BONES/SOFT TISSUES: No acute abnormality. CERVICAL SPINE CT: VERTEBRA: Normal vertebral body heights. Reversal of the usual cervical lordosis. No acute compression fracture or posttraumatic subluxation. CANAL/FORAMINA: No significant canal or neural foraminal stenosis. PARASPINAL: No acute extraspinal abnormality. IMPRESSION: HEAD CT: 1. No acute intracranial process. CERVICAL SPINE CT: 1. No CT evidence for acute fracture or post traumatic subluxation. Recent Results (from the past 24 hour(s)) US OB < 14 Weeks Single Narrative EXAM: US OB < 14 WEEKS SINGLE-TRANSABDOMINAL LOCATION: [facility] DATE/TIME: 11/15/2022 10:26 PM INDICATION: Lower abdominal pain, vaginal bleeding COMPARISON: None. TECHNIQUE: Transabdominal scans were performed. Endovaginal ultrasound was performed to better visualize the embryo. FINDINGS: UTERUS: Single living intrauterine gestation sac. CRL: Measures 1.5 cm, equals 7 weeks 6 days. HEART RATE: 156 bpm. AMNIOTIC FLUID: Normal. PLACENTA: Not yet formed. No evidence for sub-chorionic hemorrhage. RIGHT OVARY: 3.4 x 3.2 cm simple cyst. LEFT OVARY: Normal. Impression IMPRESSION: 1. Single living intrauterine gestation at 7 weeks 6 days, EDC 06/28/2023. CT Head w/o Contrast Narrative EXAM: CT HEAD W/O CONTRAST, CT CERVICAL SPINE W/O CONTRAST LOCATION: [facility] DATE/TIME: 11/15/2022 10:27 PM INDICATION: Seizure, fall, head and neck trauma COMPARISON: None. TECHNIQUE: 1) Routine CT Head without IV contrast. Multiplanar reformats. Dose reduction techniques were used. 2) Routine CT Cervical Spine without IV contrast. Multiplanar reformats. Dose reduction techniques were used. FINDINGS: HEAD CT: INTRACRANIAL CONTENTS: No intracranial hemorrhage, extraaxial collection, or mass effect. No CT evidence of acute infarct. Normal parenchymal attenuation. Normal ventricles and sulci. VISUALIZED ORBITS/SINUSES/MASTOIDS: No intraorbital abnormality. Remote left lamina papyracea deformity. No significant paranasal sinus mucosal disease. No middle ear or mastoid effusion. BONES/SOFT TISSUES: No acute abnormality. CERVICAL SPINE CT: VERTEBRA: Normal vertebral body heights. Reversal of the usual cervical lordosis. No acute compression fracture or posttraumatic subluxation. CANAL/FORAMINA: No significant canal or neural foraminal stenosis. PARASPINAL: No acute extraspinal abnormality. Impression IMPRESSION: HEAD CT: 1. No acute intracranial process. CERVICAL SPINE CT: 1. No CT evidence for acute fracture or post traumatic subluxation. Cervical spine CT w/o contrast Narrative EXAM: CT HEAD W/O CONTRAST, CT CERVICAL SPINE W/O CONTRAST LOCATION: [facility] DATE/TIME: 11/15/2022 10:27 PM INDICATION: Seizure, fall, head and neck trauma COMPARISON: None. TECHNIQUE: 1) Routine CT Head without IV contrast. Multiplanar reformats. Dose reduction techniques were used. 2) Routine CT Cervical Spine without IV contrast. Multiplanar reformats. Dose reduction techniques were used. FINDINGS: HEAD CT: INTRACRANIAL CONTENTS: No intracranial hemorrhage, extraaxial collection, or mass effect. No CT evidence of acute infarct. Normal parenchymal attenuation. Normal ventricles and sulci. VISUALIZED ORBITS/SINUSES/MASTOIDS: No intraorbital abnormality. Remote left lamina papyracea deformity. No significant paranasal sinus mucosal disease. No middle ear or mastoid effusion. BONES/SOFT TISSUES: No acute abnormality. CERVICAL SPINE CT: VERTEBRA: Normal vertebral body heights. Reversal of the usual cervical lordosis. No acute compression fracture or posttraumatic subluxation. CANAL/FORAMINA: No significant canal or neural foraminal stenosis. PARASPINAL: No acute extraspinal abnormality. Impression IMPRESSION: HEAD CT: 1. No acute intracranial process. CERVICAL SPINE CT: 1. No CT evidence for acute fracture or post traumatic subluxation. CXR: not performed. Brain MRI: not performed EKG: ASSESSMENT 1. Syncope and two spells at home. The length of the spells, from 7 minutes to 15 minutes, would beatypical for seizures. It is probable that she fell initially from orthostatic hypotension, and hervery low blood pressures in the ER support that possibility. Her history is not entirely consistent, as she reports recalling feeling lightheaded and falling, injuring her self in the fall, but she reports no recollection of events until admission to the ER, though the EMS report indicates that shealerted after an injection in her left deltoid, a painful injection she recalls. Typically after a new onset generalized seizure patients will be post-ictal for hours. Her alerting to pain in the shoulder after two reportedly prolonged seizures seems highly unlikely. Her documented low blood pressure is atypical after generalized seizures, and her documented bradycardia is similarly notably atypical. RECOMMENDATIONS 1. I am not inclined to recommend antiepileptic medications. Her spells could have been the result of orthostatic hypotension exacerbated by an argument with her significant other in the setting of baseline low blood pressure and low pulse. She has no history of prior/childhood seizures, and no clear family history of epilepsy. Her risk of epilepsy is low, and her reported symptoms/events are highly atypical for first generalized tonic/clonic seizures. I feel more comfortable recommending watchful waiting. Please call if there are further questions. Thee White M.D., Ph.D. [facility] E PACKER * Gricelda Raya MD - 11/16/2022 11:49 AM CSTAssociated Order(s): LOCKER ROOM ATTENDANT IP CONSULT OBGYN CONSULT Patient Name: Jackie Tomas Age: [age] year old Date of : 1990 Subjective: Jackie Tomas is a 32 year old female at 8+0 wga (based on tri US yesterday; ALISON 06/28/23), admitted to observation for seizure like activity. OBGYN being consulted for recently diagnosed and vaginal bleeding. Regarding VB, she had very light pink discharge yesterday. She denies any bleeding or pink discharge today. Denies any pain or pressure. She did not have intercourse recently. This is an unexpected, but desired . She has not yet established care. For her previous pregnancies, she was followed in [place]. Per patient, no complications. She has no h/o seizures. Neurology has been consulted. Bps normal. Denies headache, vision change, CP, SOB, n/v, upper abdominal pain, or increased swelling. OB: x3, pelvis proven to 4401g - No OB complications Problem List No episode was linked to this visit. OB History Para Term AB Living 1 0 0 0 0 0 SAB IAB Ectopic Multiple Live Births 0 0 0 0 0 # Outcome Date GA Lbr Kristopher/2nd Weight Sex Delivery Anes PTL Lv 1 Current No past medical history on file. No past surgical history on file. History Drug Use Not on file No family history on file. @ALGSIMPLE@ (Not in a hospital admission) There is no immunization history on file for this patient. Review of Systems - NEGATIVE FOR Fevers Chills Headache Visual changes Ear pain Sore throat Cough Shortness of breath Chest pain Palpitations Constipation Diarrhea Vomiting Bloody stools Hematuria Dysuria Muscle weakness Gait disturbance Objective: Temp: [97.7 ??F (36.5 ??C)-98.6 ??F (37 ??C)] 98.2 ??F (36.8 ??C) Pulse: [55-100] 66 Resp: [11-26] 25 BP: (86-116)/(52-78) 96/60 SpO2: [93 %-100 %] 98 % 0 lbs 0 oz General: General appearance: alert, well appearing, and in no distress. Lungs: unlabored Heart: regular rate and rhythm Abdomen: Soft, nontender, nondistended. No rebound, no guarding Speculum: Declines Extremities: Trace to 1+ edema bilateral, symmetric edema; neg Ellie's sign Lab Review: ABO/RH(D) Date Value Ref Range Status 11/15/2022 O POS Final Hemoglobin Date Value Ref Range Status 11/16/2022 11.5 (L) 11.7 - 15.7 g/dL Final 11/15/2022 12.8 11.7 - 15.7 g/dL Final Hematocrit Date Value Ref Range Status 11/16/2022 34.8 (L) 35.0 - 47.0 % Final 11/15/2022 37.7 35.0 - 47.0 % Final Assessment Jackie Tomas is a 32 year old at 8+0 wga, with newly diagnosed and vaginal bleeding; admitted to observation for seizure like activity. Plan - Vaginal Bleeding: resolved. She declined any internal exam. Will continue to monitor. - Early : - For nausea (which she currently denies), avoid Zofran in 1st tri. Recommend Phenergan or Reglan. - Start vitamins - Establish care JENNIFER with OBGYN. Tamara Ahumada office number and address given. - Seizure-Like activity: unlikely directly -related. LFTs and P:Cr added to existing labs for workup of preE. However, Bps normal and no s/sx of preE. - Armenian speaking: Induction Heating Equipment Setter used - Dispo: per primary team. Thank you for this consult. Please contact Tamara SIMON for further questions or concerns. ADDENDUM (11/16/22 at 19:35) Labs reviewed - normal CBC, BMP, LFTs, and P:Cr ratio. No evidence or concern for pre-E/eclampsia. OB signed off. She will f/u outpatient. E PACKER documented in this encounter ED Notes * Lisa Aguila RN - 11/16/2022 5:57 AM CST Patient woke up nauseous and dry heaving, patient states she thinks this could be normal morning sickness. Denies abdominal pain at this time. See MAR for intervention. E PACKER * Lisa Aguila RN - 11/16/2022 3:28 AM CST Patient repositioned in bed, bed laid flat and slightly tipped back in trendelenburg due to low SBP. E PACKER * Lisa Aguila RN - 11/16/2022 3:15 AM CST Hospitalist paged regarding SBP <90. E PACKER * Lisa Aguila RN - 11/15/2022 11:59 PM CST Patient's at bedside. Patient in tears when newswriter entered room. This newswriter asked to step out of room and asked questions related to patient's safety at home and for details about the fall that occurred after an argument between the patient and their . Patient would not makeeye contact with this newswriter but stated they do feel safe at home; when asked about why she is crying, patient stated we were talking about ourselves. E PACKER * Jose Roberto Leach RN - 11/15/2022 11:[address] [facility] ED Nurse Handoff Report Jackie Tomas is a 32 year old female ED Chief complaint: Seizures . ED Diagnosis: Final diagnoses: Seizure-like activity (H) 7 weeks gestation of Allergies: Allergies Allergen Reactions ??? Penicillins Code Status: Full Code Activity level - Baseline/Home: Independent. Activity Level - Current: Stand by Assist. Lift room needed: No. Bariatric: No Induction Heating Equipment Setter Needed: Yes, indian. Isolation: No. Infection: Not Applicable. Vital Signs: Vitals: 11/15/22 2231 11/15/22 2246 11/15/22 2301 11/15/22 2315 BP: 95/61 91/61 111/72 Pulse: 76 75 80 Resp: 20 20 Temp: TempSrc: SpO2: 98% 99% 98% Cardiac Rhythm: , Pain level: Patient confused: No. Patient Falls Risk: Yes. Elimination Status: Has voided Patient Report - Initial Complaint: Pt arrives via EMS from home for 2 seizures, estimated 6-9 minutes total seizure activity. Patient's states she complained of intense abdominal pain prior to first seizure. Focused Assessment: Cognitive Follows Commands: yes Neuro Cognitive (Adult) Level of Consciousness: alert Arousal Level: opens eyes spontaneously Orientation: oriented x 4 Speech: clear; logical Mood/Behavior: calm; cooperative [place] Coma Scale Best Eye Response: 4-->(E4) spontaneous Best Motor Response: 6-->(M6) obeys commands Best Verbal Response: 5-->(V5) oriented [place] Coma Scale Score: 15 Other flowsheet entries Best Language: 0 - No aphasia Respiratory WDL Respiratory WDL: .WDL except; rhythm/pattern Rhythm/Pattern, Respiratory: shortnessof breath (Patient complains of feeling SOB, respiratory rate WDL) Gastrointestinal Gastrointestinal WDL: .WDL except; GI symptoms GI Signs/Symptoms: abdominal discomfort (patient 7 weeks , noticed some spotting this morning and lower abdominal pain that increased throughout the day) Genitourinary (Adult) Genitourinary WDL: .WDL except; voiding characteristics Voiding Characteristics: urgency Tests Performed: labs, imaging. Abnormal Results: Labs Ordered and Resulted from Time of ED Arrival to Time of ED Departure BASIC METABOLIC PANEL - Abnormal Result Value Sodium 138 Potassium 3.4 Chloride 101 Carbon Dioxide (CO2) 18 (*) Anion Gap 19 (*) Urea Nitrogen 10.9 Creatinine 0.63 Calcium 9.3 Glucose 126 (*) GFR Estimate >90 ROUTINE UA WITH MICROSCOPIC REFLEX TO CULTURE - Abnormal Color Urine Yellow Appearance Urine Clear Glucose Urine Negative Bilirubin Urine Negative Ketones Urine 80 (*) Specific Stow Urine 1.035 Blood Urine Trace (*) pH Urine 6.0 Protein Albumin Urine 30 (*) Urobilinogen Urine 3.0 (*) Nitrite Urine Negative Leukocyte Esterase Urine Negative Mucus Urine Present (*) RBC Urine 1 WBC Urine 3 Squamous Epithelials Urine 3 (*) CBC WITH PLATELETS AND DIFFERENTIAL - Abnormal WBC Count 13.9 (*) RBC Count 3.96 Hemoglobin 12.8 Hematocrit 37.7 MCV 95 MCH 32.3 MCHC 34.0 RDW 11.8 Platelet Count 304 % Neutrophils 87 % Lymphocytes 8 % Monocytes 4 % Eosinophils 0 % Basophils 0 % Immature Granulocytes 1 NRBCs per 100 WBC 0 Absolute Neutrophils 12.2 (*) Absolute Lymphocytes 1.1 Absolute Monocytes 0.5 Absolute Eosinophils 0.0 Absolute Basophils 0.1 Absolute Immature Granulocytes 0.1 Absolute NRBCs 0.0 HCG QUANTITATIVE - Abnormal hCG Quantitative 76,467 (*) ISTAT GASES LACTATE VENOUS POCT - Abnormal Lactic Acid POCT 4.4 (*) Bicarbonate Venous POCT 19 (*) O2 Sat, Venous POCT 71 (*) pCO2V Venous POCT 34 (*) pH Venous POCT 7.34 pO2 Venous POCT 39 ISTAT HCG QUALITATIVE POCT - Abnormal HCG Qualitative POCT Positive (*) MAGNESIUM - Normal Magnesium 1.9 ETHYL ALCOHOL LEVEL - Normal Alcohol ethyl <0.01 LACTIC ACID WHOLE BLOOD - Normal Lactic Acid 1.3 GLUCOSE MONITOR NURSING POCT DRUG ABUSE SCREEN 1 URINE (ED) TYPE AND SCREEN, ADULT ABO/RH(D) O POS Antibody Screen Negative SPECIMEN EXPIRATION DATE [id number] ABO/RH TYPE AND SCREEN Cervical spine CT w/o contrast Final Result IMPRESSION: HEAD CT: 1. No acute intracranial process. CERVICAL SPINE CT: 1. No CT evidence for acute fracture or post traumatic subluxation. CT Head w/o Contrast Final Result IMPRESSION: HEAD CT: 1. No acute intracranial process. CERVICAL SPINE CT: 1. No CT evidence for acute fracture or post traumatic subluxation. OB < 14 Weeks Single Final Result IMPRESSION: 1. Single living intrauterine gestation at 7 weeks 6 days, EDC 06/28/2023. Treatments provided: see MAR Family Comments: at bedside, indian speaking OBS brochure/video discussed/provided to patient: No ED Medications: Medications lidocaine 1 % 0.1-1 mL (has no administration in time range) lidocaine (LMX4) cream (has no administration in time range) sodium chloride (PF) 0.9% PF flush 3 mL (3 mLs Intracatheter $Given 11/15/222304) sodium chloride (PF) 0.9% PF flush 3 mL (has no administration in time range) LORazepam (ATIVAN) injection 4 mg (has no administration in time range) 0.9% sodium chloride BOLUS (0 mLs Intravenous Stopped 11/15/222229) acetaminophen (TYLENOL) tablet 1,000 mg (1,000 mg Oral $Given 11/15/222304) Drips infusing: No For the majority of the shift, the patient's behavior Green. Interventions performed were n/a. Sepsis treatment initiated: No Patient tested for COVID 19 prior to admission: NO ED Nurse Name/Phone Number: Lisa Aguila RN, 11:36 PM RECEIVING UNIT ED HANDOFF REVIEW Above ED Nurse Handoff Report was reviewed: Yes Reviewed by: Jose Roberto Leach RN on November 16, 2022 at 5:46 PM E PACKER * Lisa Aguila RN - 11/15/2022 9:08 PM CST Pt arrives via EMS from home for 2 seizures, estimated 6-9 minutes total seizure activity. Patient's states she complained of intense abdominal pain prior to first seizure. E PACKER * Brandon Xavier MD - 11/15/2022 8:55 PM CST History Chief Complaint: Seizure The history is provided by the patient. Jackie Tomas is a 32 year old female who presents with two seizures prior to arrival. EMSnotes the patient was seizing for the second time on their arrival and she had a leftward gaze. Thesecond seizure lasted 7 minutes total. EMS notes patients called EMS after finding the patient seizing after complaining of abdominal pain. No known history of seizures. EMS notes they gave the patient 5 mg of Versed given 15 minutes ago. Patient was alert and oriented after Versed and complained of lower abdominal pain. 129 blood glucose. EMS adds there is bruising to left antecubital fossa. EMS denies fevers. Independent Historian: None - Patient Only and EMS - They report as noted above. Additional history with certified court/medical interpreter. Patient reports the last thing that she remembers was having an argument with her significant other, getting out of bed and tripping over her feet hittingher head and her belly on the floor. She reports feeling short of breath. She also reports early this morning she had vaginal spotting with the onset of her lower abdominal pain. LMP was 10/07/2022. She denies any further vaginal spotting but continues to have lower abdominal pain. Reports being seen at [facility] on Saturday and was told she was . She was seen there for nausea and headache. She denies any fever or continued shortness of breath. She reports this is her fourth with 3 children. She also reports urinary urgency but denies any dysuria. She denies any alcohol or drug use. Patient does report she feels safe at home. Review of External Notes: n/a ROS: Review of Systems Constitutional: Negative for fever. Respiratory: Positive for shortness of breath. Gastrointestinal: Positive for abdominal pain. Genitourinary: Positive for urgency. Negative for dysuria. + Vaginal spotting Neurological: Positive for seizures. All other systems reviewed and are negative. Allergies: Penicillins Medications: The patient is not currently taking any prescribed medications. Past Medical History: Patient denies past medical history. Social History: Patient presents alone. Patient arrived via EMS. PCP: No Ref-Primary, Physician Physical Exam Patient Vitals for the past 24 hrs: BP Temp Temp src Pulse Resp SpO2 11/16/22 0033 101/68 -- -- 74 15 99 % 11/16/22 0018 106/69 -- -- 75 -- 97 % 11/16/22 0003 106/62 -- -- 68 13 99 % 11/15/22 2348 116/78 -- -- 92 12 98 % 11/15/22 2328 109/61 -- -- 85 24 99 % 11/15/22 2315 111/72 -- -- 80 20 98 % 11/15/22 2301 -- -- -- 75 20 99 % 11/15/22 2258 95/63 -- -- 76 24 93 % 11/15/222245 91/61 -- -- 76 -- 98 % 11/15/222230 95/61 -- -- -- -- -- 11/15/222156 -- -- -- -- -- 100 % 11/15/222155 95/62 -- -- 76 -- -- 11/15/222130 -- 97.7 ??F (36.5 ??C) Rectal -- -- -- 11/15/222121 93/63 -- -- 87 21 97 % 11/15/222111 91/63 -- -- 89 20 96 % 11/15/222102 99/59 -- -- 100 16 94 % Physical Exam General: Somnolent, asks for but quickly falls asleep. Unable to answer questions. Neuro: PERRL. EOMI. Moves all extremities to nailbed pressure in all 4 extremities. No focal deficits HEENT: Atraumatic. Moist mucous membranes. Conjunctiva normal. No tongue abrasions. CV: RRR, no m/r/g, skin warm and well perfused Pulm: CTAB, no wheezes/ronchi/rales. No acute distress, breathing comfortably GI: Soft, mild lower abdominal/suprapubic tenderness, nondistended. No rebound or guarding. MSK: Moving all extremities. No focal areas of edema, erythema; cervical midline tenderness Skin: WWP, no rashes, skin color normal, no diaphoresis Emergency Department Course ECG ECG taken at 2123, ECG read at 2123 Normal sinus rhythm Rate 79 bpm. GA interval 150 ms. QRS duration 86 ms. QT/QTc 388/444 ms. P-R-T axes 29 -29 3. Imaging: Cervical spine CT w/o contrast Final Result IMPRESSION: HEAD CT: 1. No acute intracranial process. CERVICAL SPINE CT: 1. No CT evidence for acute fracture or post traumatic subluxation. CT Head w/o Contrast Final Result IMPRESSION: HEAD CT: 1. No acute intracranial process. CERVICAL SPINE CT: 1. No CT evidence for acute fracture or post traumatic subluxation. US OB < 14 Weeks Single Final Result IMPRESSION: 1. Single living intrauterine gestation at 7 weeks 6 days, EDC 06/28/2023. Report per radiology Laboratory: Labs Ordered and Resulted from Time of ED Arrival to Time of ED Departure BASIC METABOLIC PANEL - Abnormal Result Value Sodium 138 Potassium 3.4 Chloride 101 Carbon Dioxide (CO2) 18 (*) Anion Gap 19 (*) Urea Nitrogen 10.9 Creatinine 0.63 Calcium 9.3 Glucose 126 (*) GFR Estimate >90 ROUTINE UA WITH MICROSCOPIC REFLEX TO CULTURE - Abnormal Color Urine Yellow Appearance Urine Clear Glucose Urine Negative Bilirubin Urine Negative Ketones Urine 80 (*) Specific Stow Urine 1.035 Blood Urine Trace (*) pH Urine 6.0 Protein Albumin Urine 30 (*) Urobilinogen Urine 3.0 (*) Nitrite Urine Negative Leukocyte Esterase Urine Negative Mucus Urine Present (*) RBC Urine 1 WBC Urine 3 Squamous Epithelials Urine 3 (*) CBC WITH PLATELETS AND DIFFERENTIAL - Abnormal WBC Count 13.9 (*) RBC Count 3.96 Hemoglobin 12.8 Hematocrit 37.7 MCV 95 MCH 32.3 MCHC 34.0 RDW 11.8 Platelet Count 304 % Neutrophils 87 % Lymphocytes 8 % Monocytes 4 % Eosinophils 0 % Basophils 0 % Immature Granulocytes 1 NRBCs per 100 WBC 0 Absolute Neutrophils 12.2 (*) Absolute Lymphocytes 1.1 Absolute Monocytes 0.5 Absolute Eosinophils 0.0 Absolute Basophils 0.1 Absolute Immature Granulocytes 0.1 Absolute NRBCs 0.0 HCG QUANTITATIVE - Abnormal hCG Quantitative 76,467 (*) ISTAT GASES LACTATE VENOUS POCT - Abnormal Lactic Acid POCT 4.4 (*) Bicarbonate Venous POCT 19 (*) O2 Sat, Venous POCT 71 (*) pCO2V Venous POCT 34 (*) pH Venous POCT 7.34 pO2 Venous POCT 39 ISTAT HCG QUALITATIVE POCT - Abnormal HCG Qualitative POCT Positive (*) DRUG ABUSE SCREEN 1 URINE (ED) - Abnormal Amphetamines Urine Screen Negative Barbituates Urine Screen Negative Benzodiazepine Urine Screen Positive (*) Cannabinoids Urine Screen Negative Cocaine Urine Screen Negative Opiates Urine Screen Negative MAGNESIUM - Normal Magnesium 1.9 ETHYL ALCOHOL LEVEL - Normal Alcohol ethyl <0.01 LACTIC ACID WHOLE BLOOD - Normal Lactic Acid 1.3 GLUCOSE MONITOR NURSING POCT TYPE AND SCREEN, ADULT ABO/RH(D) O POS Antibody Screen Negative SPECIMEN EXPIRATION DATE [id number] ABO/RH TYPE AND SCREEN Procedures None Emergency Department Course & Assessments: Interventions: Medications lidocaine 1 % 0.1-1 mL (has no administration in time range) lidocaine (LMX4) cream (has no administration in time range) sodium chloride (PF) 0.9% PF flush 3 mL (3 mLs Intracatheter $Given 11/15/222304) sodium chloride (PF) 0.9% PF flush 3 mL (has no administration in time range) LORazepam (ATIVAN) injection 4 mg (has no administration in time range) 0.9% sodium chloride BOLUS (0 mLs Intravenous Stopped 11/15/222229) acetaminophen (TYLENOL) tablet 1,000 mg (1,000 mg Oral $Given 11/15/222304) Assessments/Consultations/Discussion of Management or Tests: 12:37 AM - discussed with Dr. White of the neurology service. Advises no antiepileptic load at thistime as the likelihood for her having a generalized tonic-clonic seizure without a prolonged postictal phase is very low. He does recommend benzodiazepines as first-line for witnessed generalized seizure in the hospital ED Course as of 11/16/22 0044 Delphine Nov 15, 20222058 I obtained patient's history and examined as noted above. 2125 I rechecked the patient and she is more awake. She notes pain in lower abdomen. 2128 I called the patient's and it went to voicedcil. 2133 I rechecked the patient and updated her hcg results and obtained additional history. Social Determinants of Health affecting care: None Disposition: The patient was admitted to the hospital under the care of Dr. Yu. Impression & Plan Medical Decision Makin-year-old female with no significant past medical history presents to the ER for evaluation of seizure-like activity. Please see above for details of HPI and exam. On arrival, patient is somnolent but had just received Versed. There is no evidence of tongue biting or urinary incontinence, however, she initially had lactic acidosis which cleared after liter of fluids. She also has nonspecifi c leukocytosis and I doubt lactic acidosis and leukocytosis represents sepsis as otherwise there isno localizing infectious symptoms and patient denies any fevers. Patient did report having an argument with her and then having a mechanical fall resulting in head injury prior to her seizureactivity. She is known to be with LMP 15. After lengthy discussion given head trauma andseizure, I discussed risk/benefits and with shared decision making we elected to obtain imaging of the head and cervical spine as she complained of neck pain. Fortunately, CT head and cervical spine are negative for acute pathology. She did reports she had vaginal spotting earlier this morning withlower abdominal pain and reports she no longer is has any bleeding. Ultrasound shows single IUP dated 7 weeks 6 days with reassuring FHR. Clinically, at this time I doubt appendicitis or surgical abdomen requiring advanced imaging as her tenderness is mainly suprapubic. UA is not indicative of infection. No indication for RhoGAM as patient is Rh+. She had no further seizure activity in the ER. Dating of and patient being normotensive argues against eclampsia. However, given concern for prolonged seizure activity versus 2 separate seizures, I feel she may benefit from hospital observation. Discussed case with neurology who does not recommend antiepileptic load at this time -also recommends benzodiazepines as first-line for seizure activity in the hospital. Discussed case with hospitalist service who excepted the patient for hospital observation. Diagnosis: ICD-10-CM 1. Seizure-like activity (H) R56.9 2. 7 weeks gestation of Z3A.01 3. Vaginal spotting N93.9 Discharge Medications: New Prescriptions No medications on file Scribe Disclosure: Cecelia Wright, am serving as a scribe at 9:09 PM on 11/15/2022 to document services personally performed by Brandon Xavier MD based on my observations and the provider's statements to me. 11/15/2022 Brandon Xavier MD [place], Edgar Ronald, MD 11/16/22 0044 E PACKER documented in this encounter Miscellaneous Notes * Plan of Care - Jose Roberto Leach RN - 11/17/2022 11:43 AM CST Patient's After Visit Summary was reviewed with patient and/or spouse. Patient verbalized understanding of After Visit Summary, recommended follow up and was given an opportunity to ask questions. IV removed Discharge medications sent home with patient/family: No Discharged with spouse E PACKER * Plan of Care - Jose Roberto Leach RN - 11/17/2022 8:00 AM CST PRIMARY DIAGNOSIS: VAGINAL SPOTTING/ SEIZURE LIKE ACTIVITY OUTPATIENT/OBSERVATION GOALS TO BE MET BEFORE DISCHARGE: 1. ADLs back to baseline: Yes 2. Activity and level of assistance: Ambulating independently. 3. Pain status: Pain free. 4. Return to near baseline physical activity: Yes Manager Database Nurse Safe discharge environment identified: Yes Barriers to discharge: Yes Entered by: Jose Roberto Leach RN 11/17/2022 10:16 AM Pt is A/Ox4. Denies pain, SOB, dizziness. Tolerating oral intake. LR infusing @ 75mL. Continue to monitor. Please review provider order for any additional goals. Nurse to notify provider when observation goals have been met and patient is ready for discharge. E PACKER * Plan of Care - Avery Metcalf RN - 11/17/2022 5:26 AM CST PRIMARY DIAGNOSIS: VAGINAL SPOTTING/ SEIZURE LIKE ACTIVITY OUTPATIENT/OBSERVATION GOALS TO BE MET BEFORE DISCHARGE: 1. ADLs back to baseline: Yes 2. Activity and level of assistance: Ambulating independently. 3. Pain status: Improved-controlled with oral pain medications. 4. Return to near baseline physical activity: Yes Manager Database Nurse Safe discharge environment identified: Yes Barriers to discharge: No Entered by: Avery Metcalf RN 11/17/2022 2:44 AM Pt is A & O x 4, SBA, Armenian speaking, NS @ 100 ml/hr, Zofran iv given for emesis x1, denies vaginal spotting, seizure precautions, seizure likely caused by hypotension exacerbated by argument with significant other per neurology. Please review provider order for any additional goals. Nurse to notify provider when observation goals have been met and patient is ready for discharge.Goal Outcome Evaluation: E PACKER * Plan of Care - Avery Metcalf RN - 11/16/2022 10:15 PM CST PRIMARY DIAGNOSIS: VAGINAL SPOTTING OUTPATIENT/OBSERVATION GOALS TO BE MET BEFORE DISCHARGE: ADLs back to baseline: Yes Activity and level of assistance: Ambulating independently. Pain status: Pain free. Return to near baseline physical activity: Yes Manager Database Nurse Safe discharge environment identified: Yes Barriers to discharge: No Entered by: Avery Metcalf RN 11/16/2022 10:15 PM Please review provider order for any additional goals. Nurse to notify provider when observation goals have been met and patient is ready for discharge.Goal Outcome Evaluation: E PACKER * Plan of Care - Jose Roberto Leach RN - 11/16/2022 6:18 PM CST ROOM # 204-2 Living Situation (if not independent, order SW consult): Home Facility name:na director personal: Kenneth (spouse) Activity level at baseline: Independent Activity level on admit: SBA Who will be transporting you at discharge: spouse Patient registered to observation; given Patient Bill of Rights; given the opportunity to ask questions about observation status and their plan of care. Patient has been oriented to the observation room, bathroom and call light is in place. Discussed discharge goals and expectations with patient/family. E PACKER * Plan of Care - Kimberley Salguero RN - 11/16/2022 5:42 PM CST Goal Outcome Evaluation: Plan of Care Reviewed With: patient Pt A&O x 4. BP soft. Up with SBA. C/o dizziness with ambulation. PIV infusing LR at 75 mL/hr. On room air. LS clear. BS+. C/o abdominal discomfort. Armenian speaking. Induction Heating Equipment Setter services needed. BP 94/55 (BP Location: Left arm) Pulse 60 Temp 99 ??F (37.2 ??C) (Oral) Resp 18 Wt 72.3 kg (159 lb 6.4 oz) SpO2 99% E PACKER * Plan of Care - Pooja Garcia RN - 11/16/2022 2:46 PM CST PRIMARY DIAGNOSIS: Seizure OUTPATIENT/OBSERVATION GOALS TO BE MET BEFORE DISCHARGE: 1. ADLs back to baseline: Yes 2. Activity and level of assistance: Up with standby assistance. 3. Pain status: Pain free. 4. Return to near baseline physical activity: Yes Manager Database Nurse Safe discharge environment identified: Yes Barriers to discharge: Yes neuro consult Entered by: Pooja Garcia RN 11/16/2022 2:46 PM Up to bathroom, neuros intact, BP soft at times no sx. IVF. Armenian speaking. Please review provider order for any additional goals. Nurse to notify provider when observation goals have been met and patient is ready for discharge.Goal Outcome Evaluation: E PACKER * Utilization Review - Piyush Fine MD - 11/16/2022 1:33 PM SHAKE PACKER Concurrent stay review; Secondary Review Determination [facility] Under the authority of the Utilization Management Committee, the utilization review process indicated a secondary review on the above patient. The review outcome is based on review of the medical records, discussions with staff, and applying clinical experience noted on the date of the review. (x) Observation Status Appropriate - Concurrent stay review RATIONALE FOR DETERMINATION 32-year-old female with no significant medical history presented with concerns for a possible seizure. She had recently found out she was approximately 7 weeks and had been prescribed cephalexin for a suspected urinary tract infection and Zofran for nausea. She had been feeling dizzy and fell down during an argument with her spouse. Her body shook continuously for at least 15 minutes until EMS arrived and administered Versed. She reported bladder incontinence but no history of seizures. She also had other symptoms including recent chills, mild headache, neck discomfort, constipation,and left lower quadrant abdominal pain with vaginal bleeding and spotting. She denied complicationsfrom previous pregnancies and reported feeling safe at home. The severity of illness, intensity of service provided, expected LOS and risk for adverse outcome make the care appropriate for observation. This document was produced using voice recognition software The information on this document is developed by the utilization review team in order for the business office to ensure compliance. This only denotes the appropriateness of proper admission status and does not reflect the quality of care rendered. The definitions of Inpatient Status and Observation Status used in making the determination above are those provided in the CMS Coverage Manual, Chapter 1 and Chapter 6, section 70.4. Sincerely, PIYUSH FINE MD System Bead StringerAirport Operations Officer [facility]. E PACKER * Pharmacy-Admission Medication History - Emperatriz King [facility] - 11/16/2022 1:13 PM CST Admission medication history interview status for this patient is complete. See [facility] admission navigator for allergy information, prior to admission medications and immunization status. Medication history interview done, indicate source(s): Patient with spanish medical interpreter assistance Medication history resources (including written lists, pill bottles, clinic record): Pill bottles Pharmacy: n/a Changes made to MOBILE APPLICATION ARCHITECT medication list: Added: zofran Changed: none Reported as Not Taking: none Removed: none Actions taken by pharmacist (provider contacted, etc):None Additional medication history information:None Medication reconciliation/reorder completed by provider prior to medication history? N (Y/N) Prior to Admission medications Medication Sig Last Dose Taking? Auth Provider Residential End Date cephALEXin (KEFLEX) 500 MG capsule Take 500 mg by mouth 2 times daily 11/15/2022 Yes Reported, Patient diphenhydrAMINE (BENADRYL) 25 MG tablet Take 2 tablets (50 mg) by mouth every 6 hours as needed foritching or allergies Unknown Yes Miryam Arreguin MD ondansetron (ZOFRAN ODT) 4 MG ODT tab Take 4 mg by mouth every 8 hours as needed for nausea Past Week Yes Unknown, Entered By History E PACKER documented in this encounter Plan of Treatment Not on file documented as of this encounter Procedures Procedure Name Priority Date/Time Associated Diagnosis Comments LACTIC ACID WHOLE BLOOD STAT 11/16/2022 8:51 AM SHAKE PACKER AST Add-On 11/16/2022 8:51 AM SHAKE PACKER ALT Add-On 11/16/2022 8:51 AM SHAKE PACKER BASIC METABOLIC PANEL STAT 11/16/2022 8:51 AM SHAKE PACKER CBC WITH PLATELETS STAT 11/16/2022 8: 51 AM SHAKE PACKER EKG 12-LEAD, TRACING ONLY STAT 11/16/2022 8:38 AM SHAKE PACKER URINE DRUG SCREEN STAT 11/15/2022 11: 02 PM SHAKE PACKER ROUTINE UA WITH MICROSCOPIC REFLEX TO CULTURE STAT 11/15/2022 11:02 PM SHAKE PACKER PROTEIN RANDOM URINE Add-On 11/15/2022 11:02 PM SHAKE PACKER DRUG ABUSE SCREEN 1 URINE (ED) STAT 11/15/2022 11:02 PM SHAKE PACKER TYPE AND SCREEN, ADULT STAT 11/15/2022 10:38 PM SHAKE PACKER LACTIC ACID WHOLE BLOOD STAT 11/15/2022 10:38 PM SHAKE PACKER ABO/RH TYPE AND SCREEN STAT 11/15/2022 10:[address] CERVICAL SPINE W/O CONTRAST STAT 11/15/2022 10:[address] HEAD W/O CONTRAST STAT 11/15/2022 10:27 PM SHAKE PACKER US OB < 14 WEEKS SINGLE-TRANSABDOMINAL STAT 11/15/2022 10:26 PM SHAKE PACKER EKG 12-LEAD, TRACING ONLY STAT 11/15/2022 9:24 PM SHAKE PACKER ISTAT HCG QUALITATIVE POCT STAT 11/15/2022 9:11 PM SHAKE PACKER EXTRA TUBE STAT 11/15/2022 9:10 PM SHAKE PACKER EXTRA RED TOP TUBE STAT 11/15/2022 9: 10 PM SHAKE PACKER EXTRA BLUE TOP TUBE STAT 11/15/2022 9 :10 PM SHAKE PACKER CBC WITH PLATELETS AND DIFFERENTIAL STAT 11/15/2022 9:09 PM SHAKE PACKER CBC WITH PLATELETS & DIFFERENTIAL STAT 11/15/2022 9:09 PM SHAKE PACKER MAGNESIUM STAT 11/15/2022 9:09 PM SHAKE PACKER HCG QUANTITATIVE STAT 11/15/2022 9:09 PM SHAKE PACKER ETHYL ALCOHOL LEVEL STAT 11/15/2022 9 :09 PM SHAKE PACKER BASIC METABOLIC PANEL STAT 11/15/2022 9:09 PM SHAKE PACKER ISTAT GASES LACTATE VENOUS POCT STAT 11/15/2022 9:08 PM SHAKE PACKER documented in this encounter Results * ALT (11/16/2022 8:51 AM SHAKE PACKER) ALT 25 10 - 35 U/L 11/16/2022 1:16 PM SHAKE PACKER [facility] Blood STRUCTURE OF RIGHT HAND / Unknown Venipuncture / Unknown 11/16/2022 8:51 AM SHAKE PACKER 11/16/2022 8:56 AM SHAKE PACKER Gricelda Raya MD LAB - BLOOD ORDERABL ES Performing Organization Address City/[facility]/ZIP Co de Phone Number [facility] [address] Lab (1st floor, no room number) [place] [address], [facility] [phone] * AST (11/16/2022 8:51 AM SHAKE PACKER) AST 23 10 - 35 U/L 11/16/2022 1:16 PM SHAKE PACKER [facility] Blood STRUCTURE OF RIGHT HAND / Unknown Venipuncture / Unknown 11/16/2022 8:51 AM SHAKE PACKER 11/16/2022 8:56 AM SHAKE PACKER Gricelda Raya MD LAB - BLOOD ORDERABL ES Performing Organization Address [facility]/ZIP Co de Phone Number [facility] [address] Lab (1st floor, no room number) [place] [address], [facility] [phone] * Lactic acid whole blood (11/16/2022 8:51 AM SHAKE PACKER) Lactic Acid 1.0 0.7 - 2.0 mmol/L 11/16/2022 8:59 AM SHAKE PACKER [facility] Blood STRUCTURE OF RIGHT HAND / Unknown Venipuncture / Unknown 11/16/2022 8:51 AM SHAKE PACKER 11/16/2022 8:56 AM SHAKE PACKER Won Harrington MD LAB - BLOOD ZAID CRAFT [facility] [address] Lab (1st floor, no room number) [place] [address], [facility] [phone] * (ABNORMAL) Basic metabolic panel (11/16/2022 8:51 AM SHAKE PACKER) [facility] Sodium 136 136 - 145 mmol/L 11/16/2022 9:37 AM [facility] Potassium 3.4 3.4 - 5.3 mmol/L 11/16/2022 9:37 AM [facility] Chloride 106 98 - 107 mmol/L 11/16/2022 9:37 AM [facility] Carbon Dioxide (CO2) 19(L) 22 - 29 mmol/L 11/16/2022 9:37 AM [facility] Anion Gap 11 7 - 15 mmol/L 11/16/2022 9:37 AM [facility] Urea Nitrogen 7.6 6.0 - 20.0 mg/dL 11/16/2022 9:37 AM [facility] Creatinine 0.51 0.51 - 0.95 mg/dL 11/16/2022 9:37 AM [facility] Calcium 8.2(L) 8.6 - 10.0 mg/dL 11/16/2022 9:37 AM [facility] Glucose 145(H) 70 - 99 mg/dL 11/16/2022 9:37 AM [facility] GFR Estimate >90 >60 mL/min/1.7 3m2 11/16/2022 9:37 AM [facility] Comment:eGFR calculated usin g 2020 CKD-EPI equation. Blood STRUCTURE OF RIGHT HAND / Unknown Venipuncture / Unknown 11/16/2022 8:51 AM SHAKE PACKER 11/16/2022 8:56 AM [facility] Won Harrington MD LAB - BLOOD ZAID CRAFT LABORAT[facility] [address] Lab (1st floor, no room number) [place] [address], [facility] [phone] * (ABNORMAL) CBC with platelets (11/16/2022 8:51 AM SHAKE PACKER) [facility] WBC Count 6.8 4.0 - 11.0 10e3/uL 11/16/2022 9:03 AM SHAKE PACKER [facility] RBC Count 3.56(L) 3.80 - 5.20 10e6/uL 11/16/2022 9:03 AM SHAKE PACKER [facility] Hemoglobin 11.5(L) 11.7 - 15.7 g/dL 11/16/2022 9:03 AM SHAKE PACKER [facility] Hematocrit 34.8(L) 35.0 - 47.0 % 11/16/2022 9:03 AM SHAKE PACKER [facility] MCV 98 78 - 100 fL 11/16/2022 9:03 AM SHAKE PACKER [facility] MCH 32.3 26.5 - 33.0 pg 11/16/2022 9:03 AM SHAKE PACKER [facility] MCHC 33.0 31.5 - 36.5 g/dL 11/16/2022 9:03 AM SHAKE PACKER [facility] RDW 12.1 10.0 - 15.0 % 11/16/2022 9:03 AM SHAKE PACK[facility] Platelet Count 261 150 - 450 10e3/uL 11/16/2022 9:03 AM SHAKE PACKER [facility] Blood STRUCTURE OF RIGHT HAND / Unknown Venipuncture / Unknown 11/16/2022 8:51 AM SHAKE PACKER 11/16/2022 8:56 AM SHAKE PACKER Won Harrington MD LAB - BLOOD ORDE LUANA [facility] [address] [facility] Lab (1st floor, no room number) [place] [address], [facility] [phone] * EKG 12 lead (11/16/2022 8:38 AM SHAKE PACKER) Systolic Blood Pressure mmHg RADIOLOGY RESULTS Diastolic Blood Pressure mmHg RADIOLOGY RESULTS Ventricular Rate 68 BPM RAD IOLOGY RESULTS Atrial Rate 68 BPM RADIOLOG Y RESULTS GA Interval 152 ms RADIOLOG Y RESULTS QRS Duration 94 ms RADIOLO GY RESULTS QT 408 ms RADIOLOGY RESULTS QTc 433 ms RADIOLOGY RESULTS P [place] 9 degrees RADIOLOGY RESULTS R AXIS -15 degrees RADIOLOGY RESULTS T [place] 30 degrees RADIOLOGY RESULTS Interpretation ECG Sinus rhythm Nonspecific ST and T wave abnormality Abnormal ECG Confirmed by - EMERGENCY ROOM, PHYSICIAN ([id number]), editor & co founder MARCIE GREENWOOD ([place]) on 11/21/2022 2:28:07 PM RADIOLOGY RESULTS 11/16/2022 8:38 AM SHAKE PACKER 11/21/2022 2:28 PM SHAKE PACKER Justin Ayala MD ECG ORDERABLES Performing Organization Address [facility]/ZIP Co de Phone Number RADIOLOGY RESULTS * (ABNORMAL) Protein random urine (11/15/2022 11:02 PM SHAKE PACKER) Total Protein Urine mg/dL 22.3(H) 1.0 - 14.0 mg/dL 11/16/2022 1:16 PM SHAKE PACKER LAB[facility]AT[facility] Comment:The reference ranges have not been established in urine protein. The results should be integrated into the clinical context for interpretation. Total Protein Urine mg/mg Creat 0.10 0.00 - 0.20 mg/mg Cr 11/16/2022 1:16 PM SHAKE PACKER [facility] Creatinine Urine mg/dL 219.5 mg/dL 11/16/2022 1:16 PM SHAKE PACKER [facility] Comment:The reference ranges have not been established in urine creatinine. The results should be integrated into the clinical context for interpretation. Urine MID-STREAM URINE SPECIMEN / Unknown Non-blood Collection / Unknown 11/15/2022 11:02 PM SHAKE PACKER 11/15/2022 11:08 PM SHAKE PACKER Gricelda Raya MD LAB - URINE ORDERABL ES Performing Organization Address [facility] Co de Phone Number LABORATORY [facility] [address] [facility] Lab (1st floor, no room number) [place] [address], [facility] [phone] * (ABNORMAL) Drug abuse screen 1 urine (ED) (11/15/2022 11:02 PM SHAKE PACKER) Amphetamines Urine Screen Negative Screen Negative 11/15/2022 11:42 PM SHAKE PACKER LABORATORY Comment:Cutoff for a negativ e amphetamine is less than 500 ng/mL. Barbituates Urine Screen Negative Screen Negative 11/15/2022 11:42 PM SHAKE PACKER [facility] Comment:Cutoff for a negativ e barbiturate is less than 200 ng/mL. Benzodiazepine Urine Screen Positive(A) Screen Negative 11/15/2022 11:42 PM SHAKE PACKER [facility] Comment: Cutoff for a positive benzodiazepine is 100 ng/mL or greater. This is an unconfirmed screening result to be used for medical purposes only. Cannabinoids Urine Screen Negative Screen Negative 11/15/2022 11:42 PM SHAKE PACKER [facility] Comment:Cutoff for a negativ e cannabinoid is less than 50 ng/mL. Cocaine Urine Screen Negative Screen Negative 11/15/2022 11:42 PM SHAKE PACKER [facility] Comment:Cutoff for a negativ e cocaine is less than 300 ng/mL. Opiates Urine Screen Negative Screen Negative 11/15/2022 11:42 PM SHAKE PACKER [facility] Comment:Cutoff for a negativ e opiate is less than 300 ng/mL. Urine MID-STREAM URINE SPECIMEN / Unknown Non-blood Collection / Unknown 11/15/2022 11:02 PM SHAKE PACKER 11/15/2022 11:08 PM SHAKE PACKER Brandon Xavier MD LAB - URINE ZAID CRAFT LABORATORY [facility] Acute Care Lab [address] [facility] Lab (1st floor, no room number) [place] [address], [facility] [phone] * (ABNORMAL) UA with Microscopic reflex to Culture (11/15/2022 11:02 PM [facility]) Color Urine Yellow Colorless, Straw, Light Yellow, Yellow 11/15/2022 11:31 PM [facility] Appearance Urine Clear Clear 11/15/19 11:31 PM [facility] Glucose Urine Negative Negative mg/dL 11/15/2022 11:31 PM [facility] Bilirubin Urine Negative Negative 11:31 PM [facility] Ketones Urine 80(A) Negative mg/dL 11/15/2022 11:31 PM [facility] Specific Stow Urine 1.035 1.003 - 1.035 11/15/2022 11:31 PM [facility] Blood Urine Trace(A) Negative 11/15/2022 11:31 PM [facility] pH Urine 6.0 5.0 - 7.0 11/15/2022 11:31 PM [facility] Protein Albumin Urine 30(A) Negative mg/dL 11/15/2022 11:31 PM [facility] Urobilinogen Urine 3.0(A) Normal, 2.0 mg/dL 11/15/2022 11:31 PM [facility] Nitrite Urine Negative Negative 11/15/2022 11:31 PM [facility] Leukocyte Esterase Urine Negative Negative 11/15/2022 11:31 PM [facility] Mucus Urine Present(A) None Seen /LPF 11/15/2022 11:31 PM [facility] RBC Urine 1 <=2 /HPF 11/15/2022 11:31 PM [facility] WBC Urine 3 <=5 /HPF 11/15/2022 11:31 PM [facility] Squamous Epithelials Urine 3(H) <=1 /HPF 11/15/2022 11:31 PM [facility] Urine MID-STREAM URINE SPECIMEN / Unknown Non-blood Collection / Unknown 11/15/2022 11:02 PM [facility] 11/15/2022 11:08 PM [facility] Narrative LABORATORY - 11/15/2022 11:31 PM [facility] Urine Culture not indicated Brandon Xavier MD LAB - URINE ZAID CRAFT [facility] [address] Lab (1st floor, no room number) [place] [address], [facility] [phone] * Lactic acid whole blood (11/15/2022 10:38 PM [facility]) Lactic Acid 1.3 0.7 - 2.0 mmol/L 11/15/2022 10:44 PM [facility] Blood VENOUS LINE / Unknown Venipuncture / Unknown 11/15/2022 10:38 PM [facility] 11/15/2022 10:42 PM [facility] Brandon Xavier MD LAB - BLOOD ZAID CRAFT [facility] [address] Lab (1st floor, no room number) [place] [address], [facility] [phone] * Adult Type and Screen (11/15/2022 10:38 PM [facility]) ABO/RH(D) O POS 11/15/2022 10:13 PM [facility] BLOOD BANK Antibody Screen Negative Negative 11/15/2022 10:13 PM [facility] BLOOD BANK SPECIMEN EXPIRATION DATE [id number] 11/15/2022 10:13 PM [facility] BLOOD B[facility] Blood BLOOD SPECIMEN / Unknown Venipuncture / Unknown 11/15/2022 10:38 PM [facility] 11/15/2022 10:42 PM [facility] Brandon Xavier MD LAB - BLOOD BANK TEST ORDER RH BLOOD BANK [address] [place] [address] * Cervical spine CT w/o contrast (11/15/2022 10:28 PM [facility]ER) Anatomical Region Laterality Modality Spine, SUBRAD CT NEURO, SUBR AD CT NEURO, UMP CT SPINE, RAD CT Computed Tomography 11/15/2022 10:2 8 PM [facility]ER Impressions 11/15/2022 10:43 PM [facility] IMPRESSION: HEAD CT: 1. ??No acute intracranial process. CERVICAL SPINE CT: 1. ??No CT evidence for acute fracture or post traumatic subluxation. Narrative 11/15/2022 10:43 PM [facility]ER EXAM: CT HEAD W/O CONTRAST, CT CERVICAL SPINE W/O CONTRAST LOCATION: [facility] DATE/TIME: 11/15/2022 10:27 PM INDICATION: Seizure, fall, head and neck trauma COMPARISON: None. TECHNIQUE: 1) Routine CT Head without IV contrast. Multiplanar reformats. Dose reduction techniques were used. 2) Routine CT Cervical Spine without IV contrast. Multiplanar reformats. Dose reduction techniques were used. FINDINGS: HEAD CT: INTRACRANIAL CONTENTS: No intracranial hemorrhage, extraaxial collection, or mass effect. ??No CT evidence of acute infarct. Normal parenchymal attenuation. Normal ventricles and sulci. VISUALIZED ORBITS/SINUSES/MASTOIDS: No intraorbital abnormality. Remote left lamina papyracea deformity. No significant paranasal sinus mucosal disease. No middle ear or mastoid effusion. BONES/SOFT TISSUES: No acute abnormality. CERVICAL SPINE CT: VERTEBRA: Normal vertebral body heights. ??Reversal of the usual cervical lordosis. No acute compression fracture or posttraumatic subluxation. CANAL/FORAMINA: No significant canal or neural foraminal stenosis. PARASPINAL: No acute extraspinal abnormality. Procedure Note Jesu Zhao MD - 11/15/2022 EXAM: CT HEAD W/O CONTRAST, CT CERVICAL SPINE W/O CONTRAST LOCATION: [facility] DATE/TIME: 11/15/2022 10:27 PM INDICATION: Seizure, fall, head and neck trauma COMPARISON: None. TECHNIQUE: 1) Routine CT Head without IV contrast. Multiplanar reformats. Dosereduction techniques were used. 2) Routine CT Cervical Spine without IV contrast. Multiplanar reformats.Dose reduction techniques were used. FINDINGS: HEAD CT: INTRACRANIAL CONTENTS: No intracranial hemorrhage, extraaxial collection,or mass effect. No CT evidence of acute infarct. Normal parenchymalattenuation. Normal ventricles and sulci. VISUALIZED ORBITS/SINUSES/MASTOIDS: No intraorbital abnormality. Remoteleft lamina papyracea deformity. No significant paranasal sinus mucosaldisease. No middle ear or mastoid effusion. BONES/SOFT TISSUES: No acute abnormality. CERVICAL SPINE CT: VERTEBRA: Normal vertebral body heights. Reversal of the usual cervicallordosis. No acute compression fracture or posttraumatic subluxation. CANAL/FORAMINA: No significant canal or neural foraminal stenosis. PARASPINAL: No acute extraspinal abnormality. IMPRESSION: HEAD CT: 1. No acute intracranial process. CERVICAL SPINE CT: 1. No CT evidence for acute fracture or post traumatic subluxation. Brandon Xavier MD IMG CT ORDERABLE S * CT Head w/o Contrast (11/15/2022 10:27 PM SHAKE [facility]ER) Anatomical Region Laterality Modality Head, SUBRAD CT NEURO, SUBRA D CT NEURO, UMP CT NEURO, RAD CT Computed Tomography 11/15/2022 10:2 7 PM SHA[facility]ER Impressions 11/15/2022 10:43 PM [facility] IMPRESSION: HEAD CT: 1. ??No acute intracranial process. CERVICAL SPINE CT: 1. ??No CT evidence for acute fracture or post traumatic subluxation. Narrative 11/15/2022 10:43 PM [facility]ER EXAM: CT HEAD W/O CONTRAST, CT CERVICAL SPINE W/O CONTRAST LOCATION: [facility] DATE/TIME: 11/15/2022 10:27 PM INDICATION: Seizure, fall, head and neck trauma COMPARISON: None. TECHNIQUE: 1) Routine CT Head without IV contrast. Multiplanar reformats. Dose reduction techniques were used. 2) Routine CT Cervical Spine without IV contrast. Multiplanar reformats. Dose reduction techniques were used. FINDINGS: HEAD CT: INTRACRANIAL CONTENTS: No intracranial hemorrhage, extraaxial collection, or mass effect. ??No CT evidence of acute infarct. Normal parenchymal attenuation. Normal ventricles and sulci. VISUALIZED ORBITS/SINUSES/MASTOIDS: No intraorbital abnormality. Remote left lamina papyracea deformity. No significant paranasal sinus mucosal disease. No middle ear or mastoid effusion. BONES/SOFT TISSUES: No acute abnormality. CERVICAL SPINE CT: VERTEBRA: Normal vertebral body heights. ??Reversal of the usual cervical lordosis. No acute compression fracture or posttraumatic subluxation. CANAL/FORAMINA: No significant canal or neural foraminal stenosis. PARASPINAL: No acute extraspinal abnormality. Procedure Note Jesu Zhao MD - 11/15/2022 EXAM: CT HEAD W/O CONTRAST, CT CERVICAL SPINE W/O CONTRAST LOCATION: [facility] DATE/TIME: 11/15/2022 10:27 PM INDICATION: Seizure, fall, head and neck trauma COMPARISON: None. TECHNIQUE: 1) Routine CT Head without IV contrast. Multiplanar reformats. Dosereduction techniques were used. 2) Routine CT Cervical Spine without IV contrast. Multiplanar reformats.Dose reduction techniques were used. FINDINGS: HEAD CT: INTRACRANIAL CONTENTS: No intracranial hemorrhage, extraaxial collection,or mass effect. No CT evidence of acute infarct. Normal parenchymalattenuation. Normal ventricles and sulci. VISUALIZED ORBITS/SINUSES/MASTOIDS: No intraorbital abnormality. Remoteleft lamina papyracea deformity. No significant paranasal sinus mucosaldisease. No middle ear or mastoid effusion. BONES/SOFT TISSUES: No acute abnormality. CERVICAL SPINE CT: VERTEBRA: Normal vertebral body heights. Reversal of the usual cervicallordosis. No acute compression fracture or posttraumatic subluxation. CANAL/FORAMINA: No significant canal or neural foraminal stenosis. PARASPINAL: No acute extraspinal abnormality. IMPRESSION: HEAD CT: 1. No acute intracranial process. CERVICAL SPINE CT: 1. No CT evidence for acute fracture or post traumatic subluxation. Brandon Xavier MD IMG CT ORDERABLE S * US OB < 14 Weeks Single (11/15/2022 10:26 PM SHAKE PACKER) Anatomical Region Laterality Modality Abdomen/Pelvis Ultrasound 11/15/2022 10:2 6 PM [facility] Impressions 11/15/2022 10:41 PM [facility] IMPRESSION: 1. ??Single living intrauterine gestation at 7 weeks 6 days, EDC 06/28/2023. Narrative 11/15/2022 10:41 PM [facility] EXAM: US OB < 14 WEEKS SINGLE-TRANSABDOMINAL LOCATION: [facility] DATE/TIME: 11/15/2022 10:26 PM INDICATION: Lower abdominal pain, vaginal bleeding COMPARISON: None. TECHNIQUE: Transabdominal scans were performed. Endovaginal ultrasound was performed to better visualize the embryo. FINDINGS: UTERUS: Single living intrauterine gestation sac. CRL: Measures 1.5 cm, equals 7 weeks 6 days. HEART RATE: 156 bpm. AMNIOTIC FLUID: Normal. PLACENTA: Not yet formed. No evidence for sub-chorionic hemorrhage. RIGHT OVARY: 3.4 x 3.2 cm simple cyst. LEFT OVARY: Normal. Procedure Note Lele Hinds MD - 11/15/2022 EXAM: US OB < 14 WEEKS SINGLE-TRANSABDOMINAL LOCATION: [facility] DATE/TIME: 11/15/2022 10:26 PM INDICATION: Lower abdominal pain, vaginal bleeding COMPARISON: None. TECHNIQUE: Transabdominal scans were performed. Endovaginal ultrasound wasperformed to better visualize the embryo. FINDINGS: UTERUS: Single living intrauterine gestation sac. CRL: Measures 1.5 cm, equals 7 weeks 6 days. HEART RATE: 156 bpm. AMNIOTIC FLUID: Normal. PLACENTA: Not yet formed. No evidence for sub-chorionic hemorrhage. RIGHT OVARY: 3.4 x 3.2 cm simple cyst. LEFT OVARY: Normal. IMPRESSION: 1. Single living intrauterine gestation at 7 weeks 6 days, EDC06/28/2023. Brandon Xavier MD IMG US ORDERABLE S * EKG 12-lead, tracing only (11/15/2022 9:24 PM SHAKE [facility]ER) Systolic Blood Pressure mmHg RADIOLOGY RESULTS Diastolic Blood Pressure mmHg RADIOLOGY RESULTS Ventricular Rate 79 BPM RAD IOLOGY RESULTS Atrial Rate 79 BPM RADIOLOG Y RESULTS GA Interval 150 ms RADIOLOG Y RESULTS QRS Duration 86 ms RADIOLO GY RESULTS QT 388 ms RADIOLOGY RESULTS QTc 444 ms RADIOLOGY RESULTS P [place] 29 degrees RADIOLOGY RESULTS R AXIS -29 degrees RADIOLOGY RESULTS T [place] 3 degrees RADIOLOGY RESULTS Interpretation ECG Sinus rhythm Normal ECG No previous ECGs available Confirmed by - EMERGENCY ROOM, PHYSICIAN ([id number]), editor & co founder MARCIE GREENWOOD ([id number]) on 11/16/2022 6:36:51 AM RADIOLOGY RESULTS 11/15/2022 9:24 PM SHAKE PACKER 11/16/2022 6:36 AM SHAKE P[facility]ER Brandon Xavier MD ECG ORDERABLES RADIOLOGY RESULTS * (ABNORMAL) iStat HCG Qualitative , POCT (11/15/2022 9:11 PM SHAKE PACKER) [facility] HCG Qualitative POCT Positive (A) Negative, Indeterminate 11/15/2022 9:29 PM [facility] LABORATORY POC Blood, venous BLOOD SPECIMEN / Unknown 11/15/2022 9:11 PM [facility]ER 11/15/2022 9:29 PM [facility]ER Brandon Xavier MD LAB - BEAKER POC T RH LABORATORY POC [facility] Acute Care Lab [address] Lab (1st floor, no room number) [place] [address], [facility] [phone] * Extra Red Top Tube (11/15/2022 9:10 PM SHAKE PACKER) Hold Specimen JIC 11/15/2022 10:16 PM [facility] LABORATORY Blood VENOUS LINE / Unknown Venipuncture / Unknown 11/15/2022 9:10 PM [facility]ER 11/15/2022 9:13 PM [facility]ER Brandon Xavier MD LAB - BLOOD ZAID CRAFT [facility] Acute Care Lab [address] Lab (1st floor, no room number) [place] [address], [facility] [phone] * Extra Blue Top Tube (11/15/2022 9:10 PM SHAKE PACKER) Hold Specimen JI 11/15/2022 10:16 PM [facility] LABOR[facility] Blood VENOUS LINE / Unknown Venipuncture / Unknown 11/15/2022 9:10 PM [facility]ER 11/15/2022 9:14 PM [facility]ER Brandon Xavier MD LAB - BLOOD ZAID CRAFT Performing Organization Address City/[facility]/ZIP Co de Phone Number [facility] [address] Lab (1st floor, no room number) [place] [address], [facility] [phone] * (ABNORMAL) HCG QUANTitative (blood) (11/15/2022 9:09 PM SHAKE PACKER) hCG Quantitative 76,467(H) <5 mIU/mL 11/15/19 10:46 PM [facility] Comment: Adult: 0-5 mIU/mL for healthy non- person Neonates: Should be within normal ranges by 2 days after Blood BLOOD SPECIMEN / Unknown Venipuncture / Unknown 11/15/2022 9:09 PM [facility] 11/15/2022 9:14 PM [facility]ER Brandon Xavier MD LAB - BLOOD ZAID CRAFT [facility] [address] Lab (1st floor, no room number) [place] [address], [facility] [phone] * (ABNORMAL) CBC with platelets and differential (11/15/2022 9:09 PM SHAKE PACKER) WBC Count 13.9(H) 4.0 - 11.0 10e3/uL 11/15/2022 9:16 PM [facility] RBC Count 3.96 3.80 - 5.20 10e6/uL 11/15/2022 9:16 PM [facility] Hemoglobin 12.8 11.7 - 15.7 g/dL 11/15/2022 9:16 PM [facility] Hematocrit 37.7 35.0 - 47.0 % 11/15/2022 9:16 PM [facility] MCV 95 78 - 100 fL 11/15/2022 9:16 PM [facility] MCH 32.3 26.5 - 33.0 pg 11/15/2022 9:16 PM [facility] MCHC 34.0 31.5 - 36.5 g/dL 11/15/2022 9:16 PM [facility] RDW 11.8 10.0 - 15.0 % 11/15/2022 9:16 PM [facility] Platelet Count 304 150 - 450 10e3/uL 11/15/2022 9:16 PM [facility] % Neutrophils 87 % 11/15/2022 9:16 PM [facility] % Lymphocytes 8 % 11/15/2022 9:16 PM [facility] % Monocytes 4 % 11/15/2022 9:16 PM [facility] % Eosinophils 0 % 11/15/2022 9:16 PM [facility] % Basophils 0 % 11/15/2022 9:16 PM [facility] % Immature Granulocytes 1 % 11/15/2022 9:16 PM [facility] NRBCs per 100 WBC 0 <1 /100 023 9:16 PM [facility] Absolute Neutrophils 12.2(H) 1.6 - 8.3 10e3/uL 11/15/2022 9:16 PM [facility] Absolute Lymphocytes 1.1 0.8 - 5.3 10e3/uL 11/15/2022 9:16 PM [facility] Absolute Monocytes 0.5 0.0 - 1.3 10e3/uL 11/15/2022 9:16 PM [facility] Absolute Eosinophils 0.0 0.0 - 0.7 10e3/uL 11/15/2022 9:16 PM [facility] Absolute Basophils 0.1 0.0 - 0.2 10e3/uL 11/15/2022 9:16 PM [facility] LAB[facility] Absolute Immature Granulocytes 0.1 <=0.4 10e3/uL 11/15/2022 9:16 PM [facility] Absolute NRBCs 0.0 10e3/uL 11/15/2022 9:16 PM [facility] LAB[facility]ATORY Blood BLOOD SPECIMEN / Unknown Venipuncture / Unknown 11/15/2022 9:09 PM SHAKE P[facility]ER 11/15/2022 9:14 PM SHAKE PACKER Brandon Xavier MD LAB - BLOOD ORDJesusita CRAFT [facility] [address] [facility] Lab (1st floor, no room number) [place] [phone], [facility] [phone] * Alcohol ethyl (11/15/2022 9:09 PM SHAKE PACKER) Alcohol ethyl <0.01 <=0.01 g/dL 11/15/2022 9:42 PM [facility] LAB[facility] Blood BLOOD SPECIMEN / Unknown Venipuncture / Unknown 11/15/2022 9:09 PM SHAKE P[facility]ER 11/15/2022 9:14 PM SHAKE PACKER Brandon Xavier MD LAB - BLOOD ZAID CRAFT [facility] [address] Lab (1st floor, no room number) [place] [address], [facility] [phone] * Magnesium (11/15/2022 9:09 PM SHAKE PACKER) Magnesium 1.9 1.7 - 2.3 mg/dL 11/15/2022 9:42 PM [facility] Blood BLOOD SPECIMEN / Unknown Venipuncture / Unknown 11/15/2022 9:09 PM SHAKE P[facility]ER 11/15/2022 9:14 PM SHAKE P[facility]ER Brandon Xavier MD LAB - BLOOD ZAID CRAFT LABORATORY [facility] Acute Care Lab [address] Lab (1st floor, no room number) [place] [address], [facility] [phone] * (ABNORMAL) Basic metabolic panel (11/15/2022 9:09 PM SHAKE PACKER) [facility] Sodium 138 136 - 145 mmol/L 11/15/2022 9:42 PM [facility] Potassium 3.4 3.4 - 5.3 mmol/L 11/15/2022 9:42 PM [facility] Chloride 101 98 - 107 mmol/L 11/15/2022 9:42 PM [facility] Carbon Dioxide (CO2) 18(L) 22 - 29 mmol/L 11/15/2022 9:42 PM [facility] Anion Gap 19(H) 7 - 15 mmol/L 11/15/2022 9:42 PM [facility] Urea Nitrogen 10.9 6.0 - 20.0 mg/dL 11/15/2022 9:42 PM [facility] Creatinine 0.63 0.51 - 0.95 mg/dL 11/15/2022 9:42 PM [facility] Calcium 9.3 8.6 - 10.0 mg/dL 11/15/2022 9:42 PM [facility] Glucose 126(H) 70 - 99 mg/dL 11/15/2022 9:42 PM [facility] GFR Estimate >90 >60 mL/min/1.7 3m2 11/15/2022 9:42 PM [facility] Comment:eGFR calculated usin g 2020 CKD-EPI equation. Blood BLOOD SPECIMEN / Unknown Venipuncture / Unknown 11/15/2022 9:09 PM SHAKE PACKER 11/15/2022 9:14 PM SHAKE PACKER Brandon Xavier MD LAB - BLOOD ZAID CRAFT LABORATORY [facility] Acute Care Lab [address] Lab (1st floor, no room number) [place] [address], [facility] [phone] * (ABNORMAL) iStat Gases (lactate) venous, POCT (11/15/2022 9:08 PM SHAKE PACKER) Lactic Acid POCT 4.4(HH) <=2.0 mmol/L 11/15/2022 9:29 PM [facility] LAB[facility] POC Bicarbonate Venous POCT 19(L) 21 - 28 mmol/L 11/15/2022 9:29 PM [facility] POC O2 Sat, Venous POCT 71(L) 94 - 100 % 11/15/2022 9:29 PM [facility] POC pCO2V Venous POCT 34(L) 40 - 50 mm Hg 11/15/2022 9:29 PM [facility] POC pH Venous POCT 7.34 7.32 - 7.43 11/15/2022 9:29 PM [facility] POC pO2 Venous POCT 39 25 - 47 mm Hg 11/15/2022 9:29 PM [facility] POC Blood, venous BLOOD SPECIMEN / Unknown 11/15/2022 9:08 PM SHAKE PACKER 11/15/2022 9:29 PM SHAKE PACKER Brandon Xavier MD LAB - BEAKER POC T RH LABORATORY POC [facility] Lab [address] [facility] Lab (1st floor, no room number) [place] [address], [facility] [phone] documented in this encounter Visit Diagnoses Diagnosis Seizure-like activity (H) Other convulsions 7 weeks gestation of Vaginal spotting Other specified noninflammatory disorder of vagina documented in this encounter Administered Medications Inactive Administered Medications - up to 3 most recent administrations Medication Order MAR Action Action Date Dose Rate Site 0.9% sodium chloride BOLUS Intravenous, 1,000 mL, ONCE, at 1,000 mL/hr, Administer over 1 Hours, On Sat11/15/22 at 2110, For 1 dose $New Bag 11/15/2022 9:31 PM SHAKE PACKER 1,000 mLs 1000 mL/hr 0.9% sodium chloride BOLUS Intravenous, 1,000 mL, ONCE, at 1,000 mL/hr, Administer over 1 Hours, On Sat11/16/22 at 0345, For 1 dose $New Bag 11/16/2022 3:30 AM SHAKE PACKER 1,000 mLs 1000 mL/hr acetaminophen (TYLENOL) Suppository 650 mg 650 mg, Rectal, EVERY 6 HOURS PRN, mild pain, other, and adjunct with moderate or severe pain or per patient request, Starting on Sat11/16/22 at 0111, Alternate with ibuprofen if ordered. Maximum acetaminophen dose from all sources = 75 mg/kg/day not to exceed 4 grams/day. acetaminophen (TYLENOL) tablet 1,000 mg 1,000 mg, Oral, ONCE, On Sat11/15/22 at 2255, For 1 dose, Maximum acetaminophen dose from all sources = 75 mg/kg/day not to exceed 4 gram $Given 11/15/2022 11:05 PM SHAKE PACKER 1,000 mg acetaminophen (TYLENOL) tablet 650 mg 650 mg, Oral, EVERY 6 HOURS PRN, mild pain, other, and adjunct with moderate or severe pain or per patient request, Starting on Sat11/16/22 at 0111, Alternate with ibuprofen if ordered. Maximum acetaminophen dose from all sources = 75 mg/kg/day not to exceed 4 grams/day. $Given 11/16/2022 11:26 PM SHAKE PACKER 650 mg lactated ringers infusion at 75 mL/hr, Intravenous, CONTINUOUS, Administer over 24 Hours, Starting on Sat11/16/22 at 1410, Until 11/17/22 at 1353 $New Bag 11/17/2022 4:10 AM SHAKE PACKER 75 mL/hr Rate/Dose Verify 11/16/2022 6:54 PM SHAKE PACKER 75 mL/h r Rate/Dose Verify 11/16/2022 4:36 PM SHAKE PACKER 75 mL/h r lidocaine (LMX4) cream Topical, EVERY 1 HOUR PRN, pain, with VAD insertion, Starting on Sat11/15/22 at 2105, Apply at least 30 minutes prior to VAD insertion in divided doses as needed for size of site for insertion. MAX Dose: 2.5 g (?? of 5 g tube) Do NOT give if patient has a history of allergy to any local anesthetic or any jaya product. Do NOT use both lidocaine intradermal/subcutaneous injection and the lidocaine cream on the same site. lidocaine 1 % 0.1-1 mL 0.1-1 mL, Other, EVERY 1 HOUR PRN, mild pain with VAD insertion, Starting on Sat11/15/22 at 2105, MAX dose 1 mL subcutaneous OR intradermal along the side of the vein in divided doses as needed for VAD insertion. Do NOT give if patient has a history of allergy to any local anesthetic or any jaya product. Do NOT use both lidocaine intradermal/subcutaneous injection and the lidocaine cream on the same site. ondansetron (ZOFRAN ODT) ODT tab 4 mg 4 mg, Oral, EVERY 6 HOURS PRN, nausea, vomiting, Starting on Sat11/16/22 at 0111, This is Step 1 of nausea and vomiting management. If nausea not resolved in 15 minutes, go to Step 2 prochlorperazine (COMPAZINE). With dry hands, peel back foil backing and gently remove tablet. Do not push oral disintegrating tablet through foil backing. Administer immediately on tongue and oral disintegrating tablet dissolves in seconds, then swallow with saliva. Liquid not required. ondansetron (ZOFRAN) injection 4 mg 4 mg, Intravenous, EVERY 6 HOURS PRN, nausea, vomiting, Administer over 2-5 Minutes, Starting on Sat11/16/22 at 0111, Give IF patient unable to tolerate oral medication. This is Step 1 of nausea and vomiting management. If nausea not resolved in 15 minutes, go to Step 2 prochlorperazine (COMPAZINE). Irritant. $Given 11/16/2022 11:19 PM SHAKE PACKER 4 mg $Given 11/16/2022 3:50 PM SHAKE PACKER 4 mg $Given 11/16/2022 5:54 AM SHAKE PACKER 4 mg senna-docusate (SENOKOT-S/PERICOLACE) 8.6-50 MG per tablet 1 tablet 1 tablet, Oral, 2 TIMES DAILY, First dose on Sat11/16/22 at 0800, If no bowel movement in 24 hours, increase to 2 tablets by mouth. Hold for loose stools. senna-docusate (SENOKOT-S/PERICOLACE) 8.6-50 MG per tablet 2 tablet 2 tablet, Oral, 2 TIMES DAILY, First dose on Sat11/16/22 at 0800, Hold for loose stools. $Given 11/17/2022 8:41 AM SHAKE PACKER 2 tablets sodium chloride (PF) 0.9% PF flush 3 mL 3 mL, Intracatheter, EVERY 8 HOURS, First dose on Sat11/15/22 at 2110, to lock peripheral IV dormant line $Given 11/16/2022 12:13 PM SHAKE PACKER 3 mLs $Given 11/15/2022 11:05 PM SHAKE PACKER 3 mLs sodium chloride (PF) 0.9% PF flush 3 mL 3 mL, Intracatheter, EVERY 1 MIN PRN, line flush, other, to ensure patency or to lock dormant line, Starting on Sat11/15/22 at 2105 sodium chloride 0.9% infusion at 100 mL/hr, Intravenous, CONTINUOUS, Starting on Sat11/16/22 at 0115, Until Sat11/16/22 at 1114 Restarted 11/16/2022 2:22 PM SHAKE PACKER 75 mL/hr $New Bag 11/16/2022 1:39 PM SHAKE PACKER 100 mL/hr Rate/Dose Verify 11/16/2022 9:22 AM SHAKE PACKER 100 mL/ hr documented in this encounter Active and Recently Administered Medications Times are shown in SHAKE PACKER. Scheduled Medication Order 11/15/2022 11/16/2022 11/17/2022 0.9% sodium chloride BOLUS (COMPLETED) Intravenous, 1,000 mL, ONCE, at 1,000 mL/hr, Administer over 1 Hours, On Sat11/15/22 at 2110, For 1 dose 2131 ($New Bag - Provider: Lisa Aguila RN)2230 (Stopped - Provider: Lisa Aguila RN) 0.9% sodium chloride BOLUS (COMPLETED) Intravenous, 1,000 mL, ONCE, at 1,000 mL/hr, Administer over 1 Hours, On Sat11/16/22 at 0345, For 1 dose 0330 ($New Bag - Provider: Lisa Aguila RN)0406 (Stopped - Provider: Lisa Aguila, LYNN) acetaminophen (TYLENOL) tablet 1,000 mg (COMPLETED) 1,000 mg, Oral, ONCE, On Sat11/15/22 at 2255, For 1 dose, Maximum acetaminophen dose from all sources = 75 mg/kg/day not to exceed 4 gram 2305 ($Given - Provider: Lisa Aguila RN) senna-docusate (SENOKOT-S/PERICOLACE) 8.6-50 MG per tablet 1 tablet(Linked Group 1) 1 tablet, Oral, 2 TIMES DAILY, First dose on Sat11/16/22 at 0800, If no bowel movement in 24 hours, increase to 2 tablets by mouth. Hold for loose stools. 0843 (See Alternative - Provider: Pooja Garcia RN)2214 (Not Given - Provider: Avery Metcalf RN - Reason: Patient/family refused) 0841 (See Alternative - Provider: Jose Roberto Leach RN) senna-docusate (SENOKOT-S/PERICOLACE) 8.6-50 MG per tablet 2 tablet(Linked Group 1) 2 tablet, Oral, 2 TIMES DAILY, First dose on Sat11/16/22 at 0800, Hold for loose stools. 0843 (Not Given - Provider: Pooja Garcia RN - Reason: Patient/family refused)2214 (See Alternative - Provider: Avery Metcalf RN) 0841 ($Given - Provider: Jose Roberto Leach RN) sodium chloride (PF) 0.9% PF flush 3 mL 3 mL, Intracatheter, EVERY 8 HOURS, First dose on Sat11/15/22 at 2110, to lock peripheral IV dormant line 2305 ($Given - Provider: Lisa Aguila RN) 0705 (Not Given - Provider: Lisa Aguila RN - Reason: IV Infusing)1213 ($Given - Provider: Pooja Garcia RN)2214 (Not Given - Provider: Avery Metcalf RN - Reason: IV Infusing) 0618 (Not Given - Provider: Avery Metcalf RN - Reason: IV Infusing)1310 (Canceled Entry - Provider: Orders Generic Provider - Comment: Automatically canceled at discontinue of medication order) Continuous Medication Order 11/15/2022 11/16/2022 11/17/2022 lactated ringers infusion at 75 mL/hr, Intravenous, CONTINUOUS, Administer over 24 Hours, Starting on Sat11/16/22 at 1410, Until 11/17/22 at 1353 1552 ($New Bag - Provider: Jeremy Ortega RN)1636 (Rate/Dose Verify - Provider: Kimberley Salguero RN)1854 (Rate/Dose Verify - Provider: Jose Roberto Leach RN) 0410 ($New Bag - Provider: Avery Metcalf RN) sodium chloride 0.9% infusion () at 100 mL/hr, Intravenous, CONTINUOUS, Starting on Sat11/16/22 at 0115, Until Sat11/16/22 at 1114 0100 ($New Bag - Provider: Lisa Aguila RN)0406 (Rate/Dose Verify - Provider: Lisa Aguila RN)0705 (Rate/Dose Verify - Provider: Lisa Aguila RN)0922 (Rate/Dose Verify - Provider: Pooja Garcia RN)1339 ($New Bag - Provider: Pooja Garcia RN)1400 (Stopped - Provider: Pooja Garcia, LYNN)1422 (Restarted - Provider: Pooja Garcia RN)1647 (Infusion stopped per MD order - Provider: Kimberley Salguero RN) PRN Medication Order 11/15/2022 11/16/2022 11/17/2022 acetaminophen (TYLENOL) Suppository 650 mg(Linked Group 2) 650 mg, Rectal, EVERY 6 HOURS PRN, mild pain, other, and adjunct with moderate or severe pain or per patient request, Starting on Sat11/16/22 at 0111, Alternate with ibuprofen if ordered. Maximum acetaminophen dose from all sources = 75 mg/kg/day not to exceed 4 grams/day. 2326 (See Alternative - Provider: Avery Metcalf RN) acetaminophen (TYLENOL) tablet 650 mg(Linked Group 2) 650 mg, Oral, EVERY 6 HOURS PRN, mild pain, other, and adjunct with moderate or severe pain or per patient request, Starting on Sat11/16/22 at 0111, Alternate with ibuprofen if ordered. Maximum acetaminophen dose from all sources = 75 mg/kg/day not to exceed 4 grams/day. 2326 ($Given - Provider: Avery Metcalf RN) lidocaine (LMX4) cream Topical, EVERY 1 HOUR PRN, pain, with VAD insertion, Starting on Sat11/15/22 at 2105, Apply at least 30 minutes prior to VAD insertion in divided doses as needed for size of site for insertion. MAX Dose: 2.5 g (?? of 5 g tube) Do NOT give if patient has a history of allergy to any local anesthetic or any jaya product. Do NOT use both lidocaine intradermal/subcutaneous injection and the lidocaine cream on the same site. lidocaine 1 % 0.1-1 mL 0.1-1 mL, Other, EVERY 1 HOUR PRN, mild pain with VAD insertion, Starting on Delphine 11/15/22 at 2105, MAX dose 1 mL subcutaneous OR intradermal along the side of the vein in divided doses as needed for VAD insertion. Do NOT give if patient has a history of allergy to any local anesthetic or any jaya product. Do NOT use both lidocaine intradermal/subcutaneous injection and the lidocaine cream on the same site. LORazepam (ATIVAN) injection 2 mg 2 mg, Intravenous, EVERY 5 MIN PRN, seizures, Starting on Sat11/16/22 at 0111, For 2 doses, Administer dose and notify provider. This drug may cause significant respiratory depression. Monitor respiratory status and vital signs carefully for 1 hour after each dose. melatonin tablet 1 mg 1 mg, Oral, AT BEDTIME PRN, sleep, Starting on Sat11/16/22 at 0111, Do not give unless at least 6 hours of uninterrupted sleep is expected. ondansetron (ZOFRAN ODT) ODT tab 4 mg(Linked Group 3) 4 mg, Oral, EVERY 6 HOURS PRN, nausea, vomiting, Starting on Sat11/16/22 at 0111, This is Step 1 of nausea and vomiting management. If nausea not resolved in 15 minutes, go to Step 2 prochlorperazine (COMPAZINE). With dry hands, peel back foil backing and gently remove tablet. Do not push oral disintegrating tablet through foil backing. Administer immediately on tongue and oral disintegrating tablet dissolves in seconds, then swallow with saliva. Liquid not required. 0554 (See Alternative - Provider: Lisa Aguila RN)3530 (See Alternative - Provider: Jeremy Ortega RN)4666 (See Alternative - Provider: Avery Metcalf RN) ondansetron (ZOFRAN) injection 4 mg(Linked Group 3) 4 mg, Intravenous, EVERY 6 HOURS PRN, nausea, vomiting, Administer over 2-5 Minutes, Starting on Sat11/16/22 at 0111, Give IF patient unable to tolerate oral medication. This is Step 1 of nausea and vomiting management. If nausea not resolved in 15 minutes, go to Step 2 prochlorperazine (COMPAZINE). Irritant. 0554 ($Given - Provider: Lisa Aguila, LYNN)1550 ($Given - Provider: Jeremy Ortega, LYNN)2311 ($Given - Provider: Avery Metcalf RN) polyethylene glycol (MIRALAX) Packet 17 g 17 g, Oral, DAILY PRN, constipation, Starting on Sat11/16/22 at 0111, IF more than 1 constipation PRN medication is ordered, administer step-chris as indicated, moving to the next step ONLY if prior step ineffective. Step 1: senna-docusate (SENOKOT-S; PERICOLACE) OR bisacodyl (DULCOLAX) EC tablet Step 2: magnesium hydroxide (MILK OF MAGNESIA) OR polyethylene glycol (MIRALAX/GLYCOLAX) Step 3: bisacodyl (DULCOLAX) suppository Step 4: sodium phosphate (FLEET ENEMA) 1 Packet = 17 grams. Mix each gram with at least 1/2 ounce (15 mL) of water - 8 ounces for 17 g dose, 4 ounces for 8.5 g dose, 2 ounces for 4 g dose. Follow with the same volume of water. Hold for loose stools unless being administered as part of a bowel prep regimen or bowel clean out. sodium chloride (PF) 0.9% PF flush 3 mL 3 mL, Intracatheter, EVERY 1 MIN PRN, line flush, other, to ensure patency or to lock dormant line, Starting on Sat11/15/22 at 2105 Linked Groups Order Group 1: senna-docusate (SENOKOT-S/PERICOLACE) 8.6-50 MG per tablet 1 tabletJump to med 1 tablet, Oral, 2 TIMES DAILY, First dose on Sat11/16/22 at 0800, If no bowel movement in 24 hours, increase to 2 tablets by mouth. Hold for loose stools. Or senna-docusate (SENOKOT-S/PERICOLACE) 8.6-50 MG per tablet 2 tabletJump to med 2 tablet, Oral, 2 TIMES DAILY, First dose on Sat11/16/22 at 0800, Hold for loose stools. Group 2: acetaminophen (TYLENOL) tablet 650 mgJump to med 650 mg, Oral, EVERY 6 HOURS PRN, mild pain, other, and adjunct with moderate or severe pain or per patient request, Starting on Sat11/16/22 at 0111, Alternate with ibuprofen if ordered. Maximum acetaminophen dose from all sources = 75 mg/kg/day not to exceed 4 grams/day. Or acetaminophen (TYLENOL) Suppository 650 mgJump to med 650 mg, Rectal, EVERY 6 HOURS PRN, mild pain, other, and adjunct with moderate or severe pain or per patient request, Starting on Sat11/16/22 at 0111, Alternate with ibuprofen if ordered. Maximum acetaminophen dose from all sources = 75 mg/kg/day not to exceed 4 grams/day. Group 3: ondansetron (ZOFRAN ODT) ODT tab 4 mgJump to med 4 mg, Oral, EVERY 6 HOURS PRN, nausea, vomiting, Starting on Sat11/16/22 at 0111, This is Step 1 of nausea and vomiting management. If nausea not resolved in 15 minutes, go to Step 2 prochlorperazine (COMPAZINE). With dry hands, peel back foil backing and gently remove tablet. Do not push oral disintegrating tablet through foil backing. Administer immediately on tongue and oral disintegrating tablet dissolves in seconds, then swallow with saliva. Liquid not required. Or ondansetron (ZOFRAN) injection 4 mgJump to med 4 mg, Intravenous, EVERY 6 HOURS PRN, nausea, vomiting, Administer over 2-5 Minutes, Starting on Sat11/16/22 at 0111, Give IF patient unable to tolerate oral medication. This is Step 1 of nausea and vomiting management. If nausea not resolved in 15 minutes, go to Step 2 prochlorperazine (COMPAZINE). Irritant. documented in this encounter Care Teams Oil And Gas Principal Relationship Specialty Start Date End Date No Ref-Primary, Physician PCP - General 03/30/22 documented as of this encounter
--- OUTSIDE RECORDS SUMMARY | 2023-10-07 08:53 | XMS_ITS | Encounter Summary ---
Author Name Unknown Organization [place] Address [facility] [place] [place] [address] Care Team Providers Care Rip Machine Operator Name Role Phone No Ref-Primary, Physician Primary Care Provider Encounter Details Date Type Department Care Team (Latest Contact Info) Description 03/05/2023 Travel Social History Tobacco Use Types Packs/Day Years [...] PM CDT documented as of this encounter Plan of Treatment Not on file documented as of this encounter Visit Diagnoses Not on filedocumented in this encounter Care Teams Rip Machine Operator Relationship Specialty Start Date End Date No Ref-Primary, Physician PCP - General 03/30/22 documented as of this encounter
--- OUTSIDE RECORDS SUMMARY | 2023-10-07 08:53 | XMS_ITS | Referral Summary ---
Author Name Unknown Organization [place] Address [address] [place] [address]. 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
[2023-10-07 15:27] LABS: Chlamydia DNA Amplified* NOT DETECTED (No Detected); GC DNA Amplified* NOT DETECTED (No Detected)
== END 2023-10-07 08:50 | disposition home or self-care (01) ==
LOC: LKVREF 08:51
PROVIDERS: PCP Physician Assistant; Visit Provider Physician Assistant
DX: R10.2 Pelvic and perineal pain (principal); Z11.3 Encounter for screening for infections with a predominantly sexual mode of transmission
CPT/HCPCS: 87086; 87491; 87591

== ENCOUNTER 2023-10-15 09:06 | Outpatient (CLI) | payer BC, SELFPAY ==
--- NOTE | 2023-10-15 09:15 | CRLHL7_ITS ---
For Patients: As a result of the Century Cures Act, medical imaging exams and procedure reports are released immediately into your electronic medical record. You may view this report before your referring provider. If you have questions, please contact your health care provider. CLINICAL HISTORY: Pelvic and perineal pain TECHNIQUE: 2D thrasher scale ultrasound. In addition color Doppler and spectral Doppler analysis was performed of the pelvis using a transabdominal and transvaginal approach. Comparison: 07/18/2023 FINDINGS: The myometrium has a heterogeneous echotexture. The uterus measures 7.2 x 4.7 x 5.0 cm. The endometrial lining measures 5 mm in thickness. A small amount of endometrial fluid is present. The right ovary measures 3.6 x 2.2 x 2.7 cm in size and the right ovary measures 3.4 x 1.7 x 2.2 cm. The ovaries demonstrate normal arterial and venous blood flow on color Doppler and spectral Doppler analysis. Trace pelvic free fluid is present. IMPRESSION: Normal ovaries. No torsion or adnexal mass. Dictated by Musa José MD @ 10/15/2023 11:09:42 AM (Electronically Signed)
--- OUTSIDE RECORDS SUMMARY | 2023-10-15 09:18 | XMS_ITS | Clinical Summary ---
Author Name Unknown Organization [place] Address [facility] 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 Height - - Body Mass Index - - Plan of Treatment Health Maintenance Due Date Last Done Comments ADVANCE CARE PLANNING 1992 ANNUAL REVIEW OF HM ORDERS 1992 HEPATITIS B IMMUNIZATION (1 of 3 - 3-dose series) 1992 YEARLY PREVENTIVE VISIT 1992 COVID-19 Vaccine (#1) 01/27/1993 HIV SCREENING 2007 HEPATITIS C SCREENING 2010 PAP 2013 DTAP/TDAP/TD IMMUNIZATION (1 - Tdap) 2017 INFLUENZA VACCINE (#1) 2023 PHQ-2 (once per calendar year) 2023 HPV IMMUNIZATION Aged Out No longer [...] Advance Directives For more information, please contact: [phone] Latest Code Status on File Code Status Date Activated Date Inactivated Comments Full Code 11/16/2022 1:11 AM 11/17/2022 1:53 PM All b asic and advanced life-sustaining interventions are performed as appropriate Question Answer Comments Code status determined by: Discussion with patient/ legal decision maker Care Teams Seed Cone Picker Relationship Specialty Start Date End Date No Ref-Primary, Physician PCP - General 03/30/22
--- OUTSIDE RECORDS SUMMARY | 2023-10-15 09:18 | XMS_ITS | Encounter Summary ---
Author Name Unknown Organization [place] Address [facility] 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 * Attachments The following attachments cannot be sent through Care Everywhere. * Urinary Tract Infections in Women (Ivorian) documented in this encounter Medications at Time [...] history is provided by the patient. A medical language specialist was used (Ivorian). Annette Tomas is a five months two [...] Urine Negative Ketones Urine 20 (*) Specific [place] Urine 1.016 Blood Urine Negative pH Urine [...] evaluation. Patient to urgently follow-up with primary icing machine operator. Diagnosis: ICD-10-CM 1. Urinary tract infection without [...] Langston MD Matthews, Jeremiah R, MD 03/05/23 1784 documented in this encounter Miscellaneous Notes * Plan of Care - Joaquin Verma RN - 03/05/2023 10:41 PM CDT Report Developer monitored patient in the ED. 20 minute [...] OB >14 WEEKS TRANSABDOMINAL AND TRANSVAGINAL LOCATION: [facility] DATE: 03/05/2023 INDICATION: abdominal pain COMPARISON: None. [...] OB >14 WEEKS TRANSABDOMINAL AND TRANSVAGINAL LOCATION: [facility] DATE: 03/05/2023 INDICATION: abdominal pain COMPARISON: None. [...] - BLOOD ORDERA BLES Performing Organization Address City/State/[facility] Co de Phone Number [facility] [address] Lab (1st floor, no room number) [place] [address], [facility] [phone] * (ABNORMAL) Urine Culture (03/05/2023 6:37 PM [...] coli Cefazolin MAYA <=4 ug/mL: Susceptible Comment:Cefazolin [place] C breakpoints are for the treatment of [...] MICRO GENER AL ORDERABLES [facility] Inf. Diseases Diag. Lab [address] [facility], [address] [place] [address], [facility] [phone] * (ABNORMAL) UA with Microscopic reflex to [...] mg/dL 03/05/2023 7:08 PM CDT LABORATORY Specific [place] Urine 1.016 1.003 - 1.035 03/05/2023 7:08 [...] Langston MD LAB - URINE ORDER NAJMA [facility] [address] Lab (1st floor, no room number) [place] [address], [facility] [phone] * Extra Blood Bank Purple Top Tube (03/05/2023 6:24 PM CDT) Hold Specimen [facility] 03/05/2023 7:32 PM CDT [facility]AT[facility] Blood BLOOD SPECIMEN / Unknown Venipuncture / Unknown 03/05/2023 6:24 PM CDT 03/05/2023 6:30 PM CDT Pato Langston MD LAB - BLOOD ORDER NAJMA [facility] Care Lab [address] Lab (1st floor, no room number) [place] [address], [place] [phone] * Extra Blood Bank Purple Top Tube (03/05/2023 6:24 PM CDT) Hold Specimen [facility] 03/05/2023 7:32 PM CDT LABORATORY Blood BLOOD SPECIMEN / Unknown Venipuncture / Unknown 03/05/2023 6:24 PM CDT 03/05/2023 6:30 PM CDT Pato Langston MD LAB - BLOOD ORDER NAJMA [facility] Lab [address] Lab (1st floor, no room number) [place] [address], [place] [phone] * Extra Red Top Tube (03/05/2023 6:24 PM CDT) Hold Specimen [facility] 03/05/2023 7:32 PM CDT [facility] Blood BLOOD SPECIMEN / Unknown Venipuncture / Unknown 03/05/2023 6:24 PM CDT 03/05/2023 6:30 PM CDT Pato Langston MD LAB - BLOOD ORDER NAJMA [facility] [address] Lab (1st floor, no room number) [place] [address], [facility] [phone] * Extra Blue Top Tube (03/05/2023 6:24 PM CDT) Hold Specimen [facility] 03/05/2023 7:32 PM CDT [facility] Blood BLOOD SPECIMEN / Unknown Venipuncture / Unknown 03/05/2023 6:24 PM CDT 03/05/2023 6:30 PM CDT Pato Langston MD LAB - BLOOD ORDER NAJMA Performing Organization Address City/[facility]/ZIP Co de Phone Number [facility] [address] Lab (1st floor, no room number) [place] [address], [facility] [phone] * (ABNORMAL) CBC with platelets and differential (03/05/2023 6:24 PM CDT) [facility] WBC Count 13.6(H) 4.0 - 11.0 10e3/uL [...] Langston MD LAB - BLOOD ORDER NAJMA [facility] [address] Lab (1st floor, no room number) [place] [address], [facility] [phone] * (ABNORMAL) HCG QUANTitative (blood) (03/05/2023 6:24 PM CDT) hCG Quantitative 6,075(H) <5 mIU/mL 03/05/20 7:11 PM CDT [facility] LAB[facility]AT[facility] Comment: Adult: 0-5 mIU/mL for healthy non- person Neonates: Should be within normal ranges by 2 days after Blood BLOOD SPECIMEN / Unknown Venipuncture / Unknown 03/05/2023 6:24 PM CDT 03/05/2023 6:30 PM CDT Pato Langston MD LAB - BLOOD ORDER NAJMA [facility] [address] [facility] Lab (1st floor, no room number) [place] [address], [facility] [phone] * (ABNORMAL) Basic metabolic panel (BMP) (03/05/2023 [...] MD LAB - BLOOD ORDER NAJMA LABORATORY [facility] Acute Care Lab [address] Lab (1st floor, no room number) [place] [address] [phone] * NON-STRESS TEST - HIM SCAN (03/05/2023 [...] RN) documented in this encounter Care Teams Singing Telegram Performer Relationship Specialty Start Date End Date No Ref-Primary, Physician PCP - General 03/30/22 documented as of this encounter
--- OUTSIDE RECORDS SUMMARY | 2023-10-15 09:18 | XMS_ITS | Encounter Summary ---
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 Negative 11/15/2022 11:42 PM [facility] Comment:Cutoff for a negativ e cannabinoid is less than 50 ng/mL. Cocaine Urine Screen Negative Screen Negative 11/15/2022 11:42 PM [facility] Comment:Cutoff for a negativ e cocaine is less than 300 ng/mL. Opiates Urine Screen Negative Screen Negative 11/15/2022 11:42 PM [facility] Comment:Cutoff for a negativ e opiate is less than 300 ng/mL. Urine MID-STREAM URINE SPECIMEN / Unknown Non-blood Collection / Unknown 11/15/2022 11:02 PM ARCHITECTURAL DRAFTSMAN 11/15/2022 11:08 PM ARCHITECTURAL DRAFTSMAN Brandon Xavier MD LAB - URINE ZAID CRAFT LABORATORY [facility] [address] [facility] Lab (1st floor, no room number) [place] [address], [facility] [phone] * (ABNORMAL) UA with Microscopic reflex to Culture (11/15/2022 11:02 PM ARCHITECTURAL DRAFTSMAN) Color Urine Yellow Colorless, Straw, Light Yellow, Yellow 11/15/2022 11:31 PM [facility] Appearance Urine Clear Clear 11/15/19 11:31 PM [facility] Glucose Urine Negative Negative mg/dL 11/15/2022 11:31 PM [facility] Bilirubin Urine Negative Negative 11:31 PM [facility] Ketones Urine 80(A) Negative mg/dL 11/15/2022 11:31 PM [facility] Specific [place] Urine 1.035 1.003 - 1.035 11/15/2022 11:31 PM [facility] Blood Urine Trace(A) Negative 11/15/2022 11:31 PM [facility] pH Urine 6.0 5.0 - 7.0 11/15/2022 11:31 PM [facility] Protein Albumin Urine 30(A) Negative mg/dL 11/15/2022 11:31 PM [facility] Urobilinogen Urine 3.0(A) Normal, 2.0 mg/dL 11/15/2022 11:31 PM [facility] Nitrite Urine Negative Negative 11/15/2022 11:31 PM [facility] Leukocyte Esterase Urine Negative Negative 11/15/2022 11:31 PM [facility] Mucus Urine Present(A) None Seen /LPF 11/15/2022 11:31 PM [facility] RBC Urine 1 <=2 /HPF 11/15/2022 11:31 PM [facility] WBC Urine 3 <=5 /HPF 11/15/2022 11:31 PM [facility] Squamous Epithelials Urine 3(H) <=1 /HPF 11/15/2022 11:31 PM [facility] Urine MID-STREAM URINE SPECIMEN / Unknown Non-blood Collection / Unknown 11/15/2022 11:02 PM ARCHITECT[facility] DRAFTSMAN 11/15/2022 11:08 PM [facility]CHITECT[facility] DRAFTSMAN Narrative LABORATORY - 11/15/2022 11:31 PM [facility]CHITECT[facility] DRAFTSMAN Urine Culture not indicated Brandon Xavier MD LAB - URINE ZAID CRAFT [facility] [address] Lab (1st floor, no room number) [place] [address], [facility] [phone] * Lactic acid whole blood (11/15/2022 10:38 PM ARCHITECTURAL DRAFTSMAN) Lactic Acid 1.3 0.7 - 2.0 mmol/L 11/15/2022 10:44 PM [facility] Blood VENOUS LINE / Unknown Venipuncture / Unknown 11/15/2022 10:38 PM ARCHITECTURAL DRAFTSMAN 11/15/2022 10:42 PM [facility]RAFTSMAN Brandon Xavier MD LAB - BLOOD ZAID CRAFT [facility] [address] Lab (1st floor, no room number) [place] [address], [facility] [phone] * Adult Type and Screen (11/15/2022 10:38 PM ARCHITECTURAL DRAFTSMAN) ABO/RH(D) O POS 11/15/2022 10:13 PM [facility] BLOOD BANK Antibody Screen Negative Negative 11/15/2022 10:13 PM [facility] RH BLOOD BANK SPECIMEN EXPIRATION DATE [id number] 11/15/2022 10:13 PM [facility] BLOOD BANK Blood BLOOD SPECIMEN / Unknown Venipuncture / Unknown 11/15/2022 10:38 PM ARCHITECTURAL DRAFTSMAN 11/15/2022 10:42 PM [facility]ITECT[facility] DRAFTSMAN Brandon Xavier MD LAB - BLOOD BANK TEST ORDER RH BLOOD BANK [address] [place] [address] * Cervical spine CT w/o contrast (11/15/2022 10:28 PM ARCHITECTURAL DRAFTSMAN) Anatomical Region Laterality Modality Spine, SUBRAD CT NEURO, SUBR AD CT NEURO, UMP CT SPINE, RAD CT Computed Tomography 11/15/2022 10:2 8 PM [facility]ECT[facility] DRAFTSMAN Impressions 11/15/2022 10:43 PM [facility]ECT[facility] DRAFTSMAN IMPRESSION: HEAD CT: 1. ??No acute intracranial process. CERVICAL SPINE CT: 1. ??No CT evidence for acute fracture or post traumatic subluxation. Narrative 11/15/2022 10:43 PM [facility]CHITECTURAL DRAFTSMAN EXAM: CT HEAD W/O CONTRAST, CT CERVICAL SPINE W/O CONTRAST LOCATION: [facility] DATE/TIME: 11/15/2022 10:27 PM INDICATION: Seizure, [...] CONTRAST, CT CERVICAL SPINE W/O CONTRAST LOCATION: [facility] DATE/TIME: 11/15/2022 10:27 PM INDICATION: Seizure, [...] CT Head w/o Contrast (11/15/2022 10:27 PM ARCHITECTURAL DRAFTSMAN) Anatomical Region Laterality Modality Head, SUBRAD CT NEURO, SUBRA D CT NEURO, UMP CT NEURO, RAD CT Computed Tomography 11/15/2022 10:2 7 PM [facility]CHITECT[facility] DRAFTSMAN Impressions 11/15/2022 10:43 PM [facility]CHITECT[facility] DRAFTSMAN IMPRESSION: HEAD CT: 1. ??No acute intracranial process. CERVICAL SPINE CT: 1. ??No CT evidence for acute fracture or post traumatic subluxation. Narrative 11/15/2022 10:43 PM [facility]CHITECT[facility] DRAFTSMAN EXAM: CT HEAD W/O CONTRAST, CT CERVICAL SPINE W/O CONTRAST LOCATION: [facility] DATE/TIME: 11/15/2022 10:27 PM INDICATION: Seizure, [...] CONTRAST, CT CERVICAL SPINE W/O CONTRAST LOCATION: [facility] DATE/TIME: 11/15/2022 10:27 PM INDICATION: Seizure, [...] < 14 Weeks Single (11/15/2022 10:26 PM ARCHITECTURAL DRAFTSMAN) Anatomical Region Laterality Modality Abdomen/Pelvis Ultrasound 11/15/2022 10:2 6 PM [facility]CH[facility]ECT[facility] DRAFTSMAN Impressions 11/15/2022 10:41 PM [facility]ECT[facility] DRAFTSMAN IMPRESSION: 1. ??Single living intrauterine gestation at 7 weeks 6 days, EDC 06/28/2023. Narrative 11/15/2022 10:41 PM ARCHITECTURAL DRAFTSMAN EXAM: US OB < 14 WEEKS SINGLE-TRANSABDOMINAL LOCATION: [facility] DATE/TIME: 11/15/2022 10:26 PM INDICATION: Lower [...] US OB < 14 WEEKS SINGLE-TRANSABDOMINAL LOCATION: [facility] DATE/TIME: 11/15/2022 10:26 PM INDICATION: Lower [...] EKG 12-lead, tracing only (11/15/2022 9:24 PM ARCHITECTURAL DRAFTSMAN) Systolic Blood Pressure mmHg RADIOLOGY RESULTS Diastolic Blood Pressure mmHg RADIOLOGY RESULTS Ventricular Rate 79 BPM RAD IOLOGY RESULTS Atrial Rate 79 BPM RADIOLOG Y RESULTS WI Interval 150 ms RADIOLOG Y RESULTS QRS Duration 86 ms RADIOLO GY RESULTS QT 388 ms RADIOLOGY RESULTS QTc 444 ms RADIOLOGY RESULTS P Tutor Key 29 degrees RADIOLOGY RESULTS R AXIS -29 degrees RADIOLOGY RESULTS T Tutor Key 3 degrees RADIOLOGY RESULTS Interpretation ECG Sinus rhythm Normal ECG No previous ECGs available Confirmed by - EMERGENCY ROOM, PHYSICIAN ([id number]), editor map MARCIE GREENWOOD ([id number]) on 11/16/2022 6:36:51 AM RADIOLOGY RESULTS 11/15/2022 9:24 PM ARCHITECTURAL DRAFTSMAN 11/16/2022 6:36 AM ARCHITECTURAL DRAFTSMAN Brandon Xavier MD ECG ORDERABLES RADIOLOGY RESULTS * (ABNORMAL) iStat HCG Qualitative , POCT (11/15/2022 9:11 PM ARCHITECTURAL DRAFTSMAN) [facility] HCG Qualitative POCT Positive (A) Negative, Indeterminate 11/15/2022 9:29 PM [facility] LABORATORY POC Blood, venous BLOOD SPECIMEN / Unknown 11/15/2022 9:11 PM ARCHITECTURAL DRAFTSMAN 11/15/2022 9:29 PM ARCHITECTURAL DRAFTSMAN Brandon Xavier MD LAB - BEAKER POC T RH LABORATORY POC [facility] [address] Lab (1st floor, no room number) [place] [address], [facility] [phone] * Extra Red Top Tube (11/15/2022 9:10 PM ARCHITECTURAL DRAFTSMAN) Hold Specimen JIC 11/15/2022 10:16 PM [facility] LAB[facility] Blood VENOUS LINE / Unknown Venipuncture / Unknown 11/15/2022 9:10 PM [facility]CHITECTURAL DRAFTSMAN 11/15/2022 9:13 PM [facility] DRAFTSMAN Brandon Xavier MD LAB - BLOOD ZAID CRAFT [facility] Lab [address] Lab (1st floor, no room number) [place] [address], [facility] [phone] * Extra Blue Top Tube (11/15/2022 9:10 PM ARCHITECTURAL DRAFTSMAN) Hold Specimen JI 11/15/2022 10:16 PM [facility] Blood VENOUS LINE / Unknown Venipuncture / Unknown 11/15/2022 9:10 PM [facility] DRAFTSMAN 11/15/2022 9:14 PM [facility] DRAFTSMAN Brandon Xavier MD LAB - BLOOD ZAID CRAFT Performing Organization Address City/[facility]/ZIP Co de Phone Number [facility] [address] Lab (1st floor, no room number) [place] [address], [facility] [phone] * (ABNORMAL) HCG QUANTitative (blood) (11/15/2022 9:09 PM [facility]CHITECT[facility] DRAFTSMAN) hCG Quantitative 76,467(H) <5 mIU/mL 11/15/19 10:46 PM [facility] Comment: Adult: 0-5 mIU/mL for healthy non- person Neonates: Should be within normal ranges by 2 days after Blood BLOOD SPECIMEN / Unknown Venipuncture / Unknown 11/15/2022 9:09 PM [facility]FT[facility] 11/15/2022 9:14 PM [facility]FTSMAN Brandon Xavier MD LAB - BLOOD ZAID CRAFT [facility] [address] Lab (1st floor, no room number) [place] [address], [facility] [phone] * (ABNORMAL) CBC with platelets and differential (11/15/2022 9:09 PM [facility]CHITECT[facility]FTSM[facility]) WBC Count 13.9(H) 4.0 - 11.0 10e3/uL 11/15/2022 9:16 PM [facility] RBC Count 3.96 3.80 - 5.20 10e6/uL 11/15/2022 9:16 PM [facility] Hemoglobin 12.8 11.7 - 15.7 g/dL 11/15/2022 9:16 PM [facility] Hematocrit 37.7 35.0 - 47.0 % 11/15/2022 9:16 PM [facility] MCV 95 78 - 100 fL 11/15/2022 9:16 PM [facility] MCH 32.3 26.5 - 33.0 pg 11/15/2022 9:16 PM [facility] MCHC 34.0 31.5 - 36.5 g/dL 11/15/2022 9:16 PM [facility] RDW 11.8 10.0 - 15.0 % 11/15/2022 9:16 PM [facility] Platelet Count 304 150 - 450 10e3/uL 11/15/2022 9:16 PM [facility] % Neutrophils 87 % 11/15/2022 9:16 PM [facility] % Lymphocytes 8 % 11/15/2022 9:16 PM [facility] % Monocytes 4 % 11/15/2022 9:16 PM [facility] % Eosinophils 0 % 11/15/2022 9:16 PM [facility] % Basophils 0 % 11/15/2022 9:16 PM [facility] % Immature Granulocytes 1 % 11/15/2022 9:16 PM [facility] NRBCs per 100 WBC 0 <1 /100 023 9:16 PM [facility] Absolute Neutrophils 12.2(H) 1.6 - 8.3 10e3/uL 11/15/2022 9:16 PM [facility] Absolute Lymphocytes 1.1 0.8 - 5.3 10e3/uL 11/15/2022 9:16 PM [facility] Absolute Monocytes 0.5 0.0 - 1.3 10e3/uL 11/15/2022 9:16 PM [facility] Absolute Eosinophils 0.0 0.0 - 0.7 10e3/uL 11/15/2022 9:16 PM [facility] Absolute Basophils 0.1 0.0 - 0.2 10e3/uL 11/15/2022 9:16 PM [facility] Absolute Immature Granulocytes 0.1 <=0.4 10e3/uL 11/15/2022 9:16 PM [facility] Absolute NRBCs 0.0 10e3/uL 11/15/2022 9:16 PM [facility] Blood BLOOD SPECIMEN / Unknown Venipuncture / Unknown 11/15/2022 9:09 PM [facility]CHITECTURAL DRAFTSMAN 11/15/2022 9:14 PM [facility] DRAFTSMAN Brandon Xavier MD LAB - BLOOD ORDJesusita CRAFT [facility] [address], no room number[facility] [place] [phone], [facility] [phone] * Alcohol ethyl (11/15/2022 9:09 PM ARCHITECTURAL DRAFTSMAN) Alcohol ethyl <0.01 <=0.01 g/dL 11/15/2022 9:42 PM [facility] Blood BLOOD SPECIMEN / Unknown Venipuncture / Unknown 11/15/2022 9:09 PM ARCHITECTURAL DRAFTSMAN 11/15/2022 9:14 PM [facility]CHITECTURAL DRAFTSMAN Brandon Xavier MD LAB - BLOOD ZAID CRAFT [facility] Lab [address] Lab (1st floor, no room number) [place] [address], [facility] [phone] * Magnesium (11/15/2022 9:09 PM ARCHITECTURAL DRAFTSMAN) Magnesium 1.9 1.7 - 2.3 mg/dL 11/15/2022 9:42 PM [facility] Blood BLOOD SPECIMEN / Unknown Venipuncture / Unknown 11/15/2022 9:09 PM [facility]ITECT[facility] DRAFTSMAN 11/15/2022 9:14 PM [facility]RAFTSMAN Brandon Xavier MD LAB - BLOOD ZAID CRAFT LABORATORY [facility] [address] Lab (1st floor, no room number) [place] [address], [facility] [phone] * (ABNORMAL) Basic metabolic panel (11/15/2022 9:09 PM ARCHITECTURAL DRAFTSMAN) [facility] Sodium 138 136 - 145 mmol/L 11/15/2022 9:42 PM [facility] Potassium 3.4 3.4 - 5.3 mmol/L 11/15/2022 9:42 PM [facility] Chloride 101 98 - 107 mmol/L 11/15/2022 9:42 PM [facility] Carbon Dioxide (CO2) 18(L) 22 - 29 mmol/L 11/15/2022 9:42 PM [facility] Anion Gap 19(H) 7 - 15 mmol/L 11/15/2022 9:42 PM [facility] Urea Nitrogen 10.9 6.0 - 20.0 mg/dL 11/15/2022 9:42 PM [facility] Creatinine 0.63 0.51 - 0.95 mg/dL 11/15/2022 9:42 PM [facility] Calcium 9.3 8.6 - 10.0 mg/dL 11/15/2022 9:42 PM [facility] Glucose 126(H) 70 - 99 mg/dL 11/15/2022 9:42 PM [facility] GFR Estimate >90 >60 mL/min/1.7 3m2 11/15/2022 9:42 PM [facility] Comment:eGFR calculated usin g 2020 CKD-EPI equation. Blood BLOOD SPECIMEN / Unknown Venipuncture / Unknown 11/15/2022 9:09 PM [facility]CHITECTURAL DRAFTSMAN 11/15/2022 9:14 PM [facility]CHITECTURAL DRAFTSMAN Brandon Xavier MD LAB - BLOOD ZAID CRAFT LABORATORY [facility] [address] Lab (1st floor, no room number) [place] [address], [facility] [phone] * (ABNORMAL) iStat Gases (lactate) venous, POCT (11/15/2022 9:08 PM ARCHITECT[facility] DRAFTSMAN) Lactic Acid POCT 4.4(HH) <=2.0 mmol/L 11/15/2022 9:29 PM [facility] LABORATORY POC Bicarbonate Venous POCT 19(L) 21 - 28 mmol/L 11/15/2022 9:29 PM [facility] LAB[facility] POC O2 Sat, Venous POCT 71(L) 94 - 100 % 11/15/2022 9:29 PM [facility]AT[facility] POC pCO2V Venous POCT 34(L) 40 - 50 mm Hg 11/15/2022 9:29 PM [facility] LAB[facility]AT[facility] POC pH Venous POCT 7.34 7.32 - 7.43 11/15/2022 9:29 PM [facility] POC pO2 Venous POCT 39 25 - 47 mm Hg 11/15/2022 9:29 PM [facility] POC Blood, venous BLOOD SPECIMEN / Unknown 11/15/2022 9:08 PM [facility]CHITECTURAL DRAFTSMAN 11/15/2022 9:29 PM [facility]CHITECTURAL DRAFTSMAN Brandon Xavier MD LAB - BEAKER POC T RH LABORATORY POC [facility] [address] [facility] (1st floor, no room number) [place] [address], [facility] [phone] documented in this encounter Visit Diagnoses Diagnosis [...] 1 dose $New Bag 11/15/2022 9:31 PM [facility]ECT[facility] DRAFTSMAN 1,000 mLs 1000 mL/hr 0.9% sodium chloride BOLUS Intravenous, 1,000 mL, ONCE, at 1,000 mL/hr, Administer over 1 Hours, On Sat11/16/22 at 0345, For 1 dose $New Bag 11/16/2022 3:30 AM [facility]ECT[facility]RAFTSMAN 1,000 mLs 1000 mL/hr acetaminophen (TYLENOL) Suppository [...] exceed 4 gram $Given 11/15/2022 11:05 PM [facility]RAFTSMAN 1,000 mg acetaminophen (TYLENOL) tablet 650 mg 650 mg, Oral, EVERY 6 HOURS PRN, mild pain, other, and adjunct with moderate or severe pain or per patient request, Starting on Sat11/16/22 at 0111, Alternate with ibuprofen if ordered. Maximum acetaminophen dose from all sources = 75 mg/kg/day not to exceed 4 grams/day. $Given 11/16/2022 11:26 PM [facility]CHITECT[facility] DRAFTSMAN 650 mg lactated ringers infusion at 75 mL/hr, Intravenous, CONTINUOUS, Administer over 24 Hours, Starting on Sat11/16/22 at 1410, Until 11/17/22 at 1353 $New Bag 11/17/2022 4:10 AM [facility]CHITECTURAL DRAFTSMAN 75 mL/hr Rate/Dose Verify 11/16/2022 6:54 PM ARCHITECTURAL DRAFTSMAN 75 mL/h r Rate/Dose Verify 11/16/2022 4:36 PM ARCHITECTURAL DRAFTSMAN 75 mL/h r lidocaine (LMX4) cream Topical, [...] prochlorperazine (COMPAZINE). Irritant. $Given 11/16/2022 11:19 PM ARCHITECTURAL DRAFTSMAN 4 mg $Given 11/16/2022 3:50 PM ARCHITECTURAL DRAFTSMAN 4 mg $Given 11/16/2022 5:54 AM ARCHITECTURAL DRAFTSMAN 4 mg senna-docusate (SENOKOT-S/PERICOLACE) 8.6-50 MG per [...] for loose stools. $Given 11/17/2022 8:41 AM ARCHITECTURAL DRAFTSMAN 2 tablets sodium chloride (PF) 0.9% PF flush 3 mL 3 mL, Intracatheter, EVERY 8 HOURS, First dose on Sat11/15/22 at 2110, to lock peripheral IV dormant line $Given 11/16/2022 12:13 PM [facility]CHITECTURAL DRAFTSMAN 3 mLs $Given 11/15/2022 11:05 PM ARCHITECTURAL DRAFTSMAN 3 mLs sodium chloride (PF) 0.9% PF flush 3 mL 3 mL, Intracatheter, EVERY 1 MIN PRN, line flush, other, to ensure patency or to lock dormant line, Starting on Sat11/15/22 at 2105 sodium chloride 0.9% infusion at 100 mL/hr, Intravenous, CONTINUOUS, Starting on Sat11/16/22 at 0115, Until Sat11/16/22 at 1114 Restarted 11/16/2022 2:22 PM ARCHITECTURAL DRAFTSMAN 75 mL/hr $New Bag 11/16/2022 1:39 PM ARCHITECTURAL DRAFTSMAN 100 mL/hr Rate/Dose Verify 11/16/2022 9:22 AM ARCHITECTURAL DRAFTSMAN 100 mL/ hr documented in this encounter Active and Recently Administered Medications Times are shown in ARCHITECTURAL DRAFTSMAN. Scheduled Medication Order 11/15/2022 11/16/2022 11/17/2022 0.9% [...] 0554 (See Alternative - Provider: Lisa Aguila RN)1100 (See Alternative - Provider: Jeremy Ortega RN)2576 (See Alternative - Provider: Avery Metcalf RN) [...] Aguila, LYNN)1550 ($Given - Provider: Jeremy Ortega, LYNN)2312 ($Given - Provider: Avery Metcalf RN) polyethylene [...] Irritant. documented in this encounter Care Teams Bank Appraiser Relationship Specialty Start Date End Date No Ref-Primary, Physician PCP - General 03/30/22 documented as of this encounter
--- OUTSIDE RECORDS SUMMARY | 2023-10-15 09:18 | XMS_ITS | Referral Summary ---
Author Name Unknown Organization [place] Address [address] [place] [address]. 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
--- OUTSIDE RECORDS SUMMARY | 2023-10-15 09:18 | XMS_ITS | Encounter Summary ---
Author Name Unknown Organization [place] Address [facility] [place] [address] Care Team Providers Care Activity Coordinator Name Role Phone No Ref-Primary, Physician Primary [...] on filedocumented in this encounter Care Teams Activity Coordinator Relationship Specialty Start Date End Date No Ref-Primary, Physician PCP - General 03/30/22 documented as of this encounter
== END 2023-10-15 09:07 | disposition home or self-care (01) ==
LOC: US 09:10
PROVIDERS: Visit Provider Physician Assistant
DX: R10.2 Pelvic and perineal pain (principal)
CPT/HCPCS: 76830; 76856; 93976; T1013

== ENCOUNTER 2024-03-02 17:20 | Emergency (ER) | payer BC, SELFPAY ==
[2024-03-02 17:26] VITALS: BP 108/67; PULSE 77; RESP 18; TEMP 36.6; O2SAT 98; BMI 26.6
--- OUTSIDE RECORDS SUMMARY | 2024-03-02 17:54 | XMS_ITS | Referral Summary ---
Author Organization [place] Address [facility] 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
--- OUTSIDE RECORDS SUMMARY | 2024-03-02 17:54 | XMS_ITS | Clinical Summary ---
Author Organization [place] Address [facility] 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 Height - - Body Mass Index - - Plan of Treatment Health Maintenance Due Date Last Done Comments ADVANCE CARE PLANNING 1992 ANNUAL REVIEW OF HM ORDERS 1992 YEARLY PREVENTIVE VISIT 1992 HIV SCREENING 2007 HEPATITIS C SCREENING 2010 HEPATITIS B IMMUNIZATION (1 of 3 - 19+ 3-dose series) 2011 PAP 2013 DTAP/TDAP/TD IMMUNIZATION (1 - Tdap) 2017 COVID-19 Vaccine (1 - 2022-2 4 season) 2023 PHQ-2 (once per calendar year) 2023 INFLUENZA VACCINE (Season Ended) 2024 HPV IMMUNIZATION Aged Out No longer e [...] Advance Directives For more information, please contact: [phone] * Full Code (Latest Code Status on File) Date Activated Date Inactivated Comments 11/16/2022 1:11 AM 11/17/2022 1:53 PM All basic an d advanced life-sustaining interventions are performed as appropriate Question Answer Comments Code status determined by: Discussion with patie nt/ legal decision maker Care Teams Wireless Consultant Relationship Specialty Start Date End Date No Ref-Primary, Physician PCP - General 03/30/22
--- NOTE | 2024-03-02 18:24 | ED_ITS ---
HPI - General Adult General Chief complaint: Unspecified Complaint, Adult Stated complaint: Fever, cough Time Seen by Provider: 03/02/24 17:27 Source: patient Mode of arrival: ambulatory Limitations: no limitations History of Present Illness HPI narrative: 33-year-old female coming in today complaining about cough, sore throat, congestion for 2 days. Complains of a decreased appetite. Denies headache, chest or abdominal pain. No diarrhea. No vomiting. Cough is nonproductive. She is not short of breath. States that she feels ?feverish?. Has not measured her temperatures at home. Related Data Home Medications ?Medication ?Instructions ?Recorded ?Confirmed copper 380 square mm intrauterine 1 device intrauterine ONCE 02/12/24 03/02/24 device (ParaGard T 380A) Allergies Allergy/AdvReac Type Severity Reaction Status Date / Time acetaminophen AdvReac Unknown Rash Verified 03/02/24 17:29 Review of Systems Status of ROS: Reports: 6 or more systems reviewed and unremarkable except as noted in History and below PFSH PFS Medical History Pyelonephritis ?N12 - Tubulo-interstitial nephritis, not specified as acute or chronic (ICD- 10) NVD (normal vaginal delivery) ?O80 - Encounter for full-term uncomplicated delivery (ICD-10) Family History Mother Diabetes High blood pressure Maternal Grandfather Diabetes High blood pressure Social History What is your current living situation?: I presently have a place to live Problems where you live: no known problems Problems where you live details: n/a In the past 12 months, utilities in danger of being shut off: no In past 12 months, lack of transportation kept you from medical appts, meetings, work, or getting things needed for daily living: no In the past 12 mos, have been you worried that your food would run out before you had money to buy more?: never true In the past 12 mos, the food you bought just didn't last and you didn't have money to buy more?: never true Highest level of school completed/degree received: 9th grade Smoking Status: Former smoker Do you use any of these nicotine containing products: None Second hand tobacco smoke exposure: No How often do you have a drink containing alcohol: never How often do you have six or more drinks on one occasion: Never AUDIT-C Alcohol total score: 0 Non-prescribed substance use: denies use Caffeine: No How often does anyone, including family, friends and others, physically hurt you : never How often does anyone, including family, friends and others, insult or talk down to you: never How often does anyone, including family, friends and others, threaten you with harm: never How often does anyone, including family, friends and others, scream or curse at you: never Little interest or pleasure in doing things: not at all Feeling down, depressed, or hopeless: more than half the days service: No Exam Narrative: Exam Narrative: Well-nourished well-developed patient in no acute distress. Alert and oriented. Answers questions appropriately. Mood and affect are appropriate. Thoughts are goal oriented and rational. No tangential or magical thinking noted. Patient speaks in full sentences without needing to catch her breath. Sounds congested. HEENT: Normocephalic atraumatic. Pupils are equally round reactive to light. Extraocular muscles are intact. Conjunctivae are moist without any icterus noted. Moist mucous membranes. Posterior pharynx is normal. Neck is soft without any lymphadenopathy or thyromegaly. No masses are appreciated. Cardiovascular: Heart is regular rate and rhythm S1 and S2 are present without any murmurs. Lungs: Clear to auscultation bilaterally no wheezes rhonchi or rales are appreciated. Patient takes deep breaths without any discomfort. Abdomen: Soft and nontender nondistended with normal bowel sounds. Skin: Well perfused without any obvious rashes. Const: Vital Signs, click to edit/add: Vital Signs - 24 hr 03/02/24 17:26 Temperature 97.9 F Pulse Rate [Right Pulse Oximeter] 77 Respiratory Rate 18 Blood Pressure [Ri ght Upper Arm] 108/67 Pulse Oximetry 98 Oxygen Delivery Me thod Room Air Course Course ED Course: Triple swab was done: This is negative. Rapid strep was done: This is pending. Vital Signs Vital signs: Initial Vital Signs Temperature 97.9 F 03/02/24 17:26 Temperature Source Temporal Artery Scan 03/02/24 17:26 Pulse Rate 77 03/02/24 17:26 Pulse Rhythm Regular 03/02/24 17:26 Respiratory Rate 18 03/02/24 17:26 Blood Pressure 108/67 03/02/24 17:26 Blood Pressure Mean 80 03/02/24 17:26 Blood Pressure Position Sitting 03/02/24 17:26 Pulse Oximetry 98 03/02/24 17:26 Oxygen Delivery Method Room Air 03/02/24 17:26 Vital Signs Temperature 97.9 F 03/02/24 17:26 Pulse Rate 77 03/02/24 17:26 Respiratory Rate 18 03/02/24 17:26 Blood Pressure 108/67 03/02/24 17:26 Pulse Oximetry 98 03/02/24 17:26 Oxygen Delivery Method Room Air 03/02/24 17:26 Temperature 97.9 F 03/02/24 17:26 Pulse Rate 77 03/02/24 17:26 Respiratory Rate 18 03/02/24 17:26 Blood Pressure 108/67 03/02/24 17:26 Pulse Oximetry 98 03/02/24 17:26 Oxygen Delivery Method Room Air 03/02/24 17:26 Medical Decision Making MDM Narrative Medical decision making narrative: 33-year-old female with upper respiratory infection. I do not see any evidence of pneumonia from her physical exam and history today. I do not believe this is a more serious infection that needs further management or treatment at this time. Discussed symptomatic treatment reasons for follow-up. Lab Data Lab results reviewed: Yes I reviewed the patient's lab results Labs: Lab Results 03/02/24 Range/Units 17:47 SARS-CoV-2 (PCR) Negative SARS-CoV-2 (Negative) Influenza Type A (PCR) Negative PCR FLU A (Negative) Influenza Type B (PCR) Negative PCR FLU B (Negative) RSV (PCR) Negative PCR RSV (Negative) Discharge Plan Discharge Clinical Impression: Acute upper respiratory infection Patient Disposition: Home, Self-Care Condition: Stable Additional Instructions: Your tested for COVID, influenza and RSV today, all of these were negative. You likely have a an upper respiratory infection which has caused by a virus and is also known as the common cold. Symptoms can last for 5-7 days. Recommend Tylenol p.m. if you have trouble sleeping secondary to congestion or cough, okay to take Tylenol cold and flu during the day as needed/as directed. We will call you if your rapid strep test is positive. Prescriptions: No Action ParaGard T 380A 380 square mm intrauterine device 1 device intrauterine ONCE Rx Instructions: as a single dose Follow Up/Referrals: Provider,Not a Local [Primary Care Provider] - Stand Alone Forms: [facility] Info Instructions
[2024-03-02 18:29] LABS: PCR FLU A Negative PCR FLU A (Negative); PCR FLU B Negative PCR FLU B (Negative); PCR RSV Negative PCR RSV (Negative); SARS PCR* Negative SARS-CoV-2 (Negative)
[2024-03-02 18:57] LABS: Strep A DNA Probe* NOT DETECTED (Not Detectd)
== END 2024-03-02 18:47 | disposition home or self-care (01) ==
PROVIDERS: Emergency Provider Family Medicine
DX: J06.9 Acute upper respiratory infection, unspecified (principal)
CPT/HCPCS: 87631; 87651; 99282; 99283; 99284

== ENCOUNTER 2024-06-19 13:50 | Emergency (ER) | payer BC, SELFPAY ==
[2024-06-19 13:58] VITALS: BP 109/66; PULSE 61; RESP 18; TEMP 36.9; O2SAT 97
--- NOTE | 2024-06-19 14:23 | ED_ITS ---
HPI - General Adult General Chief complaint: Abdominal Pain Stated complaint: abdominal pain Time Seen by Provider: 06/19/24 14:03 Source: patient Mode of arrival: ambulatory Limitations: no limitations History of Present Illness HPI narrative: A 33-year-old female coming in today complaining of right lower quadrant abdominal pain started this morning. She states that she feels nauseated, has not vomited. Denies fevers. Standing or walking makes the pain worse, nothing really makes it better. Sometimes the pain radiates into her lower back on the right side. She denies dysuria, increased urinary frequency or urgency. She denies any diarrhea constipation. She denies any previous surgeries. States that she has irregular periods, uncertain if she could be or not. Within she tells me that she does have an IUD in place. She takes no medications. Related Data Home Medications ?Medication ?Instructions ?Recorded ?Confirmed copper 380 square mm intrauterine 1 device intrauterine ONCE 02/12/24 03/02/24 device (ParaGard T 380A) Allergies Allergy/AdvReac Type Severity Reaction Status Date / Time acetaminophen AdvReac Unknown Rash Verified 06/19/24 13:58 Review of Systems Status of ROS: Reports: 10 or more systems reviewed and unremarkable except as noted in History and below [facility] Medical History Pyelonephritis ?N12 - Tubulo-interstitial nephritis, not specified as acute or chronic (ICD- 10) NVD (normal vaginal delivery) ?O80 - Encounter for full-term uncomplicated delivery (ICD-10) Family History Mother Diabetes High blood pressure Maternal Grandfather Diabetes High blood pressure Social History What is your current living situation?: I presently have a place to live Problems where you live: no known problems Problems where you live details: n/a In the past 12 months, utilities in danger of being shut off: no In past 12 months, lack of transportation kept you from medical appts, meetings, work, or getting things needed for daily living: no In the past 12 mos, have been you worried that your food would run out before you had money to buy more?: never true In the past 12 mos, the food you bought just didn't last and you didn't have money to buy more?: never true Highest level of school completed/degree received: 9th grade Smoking Status: Former smoker Do you use any of these nicotine containing products: None Second hand tobacco smoke exposure: No How often do you have a drink containing alcohol: never How often do you have six or more drinks on one occasion: Never AUDIT-C Alcohol total score: 0 Non-prescribed substance use: denies use Caffeine: No How often does anyone, including family, friends and others, physically hurt you : never How often does anyone, including family, friends and others, insult or talk down to you: never How often does anyone, including family, friends and others, threaten you with harm: never How often does anyone, including family, friends and others, scream or curse at you: never Little interest or pleasure in doing things: not at all Feeling down, depressed, or hopeless: more than half the days service: No Exam Narrative: Exam Narrative: Well-nourished well-developed patient in no acute distress. Alert and oriented. Answers questions appropriately. Mood and affect are appropriate. Thoughts are goal oriented and rational. No tangential or magical thinking noted. Patient speaks in full sentences without needing to catch their breath. HEENT: Normocephalic atraumatic. Pupils are equally round reactive to light. Extraocular muscles are intact. Conjunctivae are moist without any icterus noted. Moist mucous membranes. Posterior pharynx is normal. Neck is soft without any lymphadenopathy or thyromegaly. No masses are appreciated. Cardiovascular: Heart is regular rate and rhythm S1 and S2 are present without any murmurs. Lungs: Clear to auscultation bilaterally no wheezes rhonchi or rales are appreciated. Patient takes deep breaths without any discomfort. Abdomen: soft and nondistended with normal bowel sounds. Patient has suprapubic discomfort as well as right lower quadrant discomfort. She also has some mild periumbilical discomfort. Discomfort is mild. No CVA tenderness. No right upper quadrant or epigastric pain. Extremities: Bilateral lower extremities are without edema. Skin: Well perfused without any obvious rashes. Const: Vital Signs, click to edit/add: Vital Signs - 24 hr 06/19/24 13:58 Temperature 98.5 F Pulse Rate [Pulse Oximeter] 61 Respiratory Rate 18 Blood Pressure [Ri ght Upper Arm] 109/66 Pulse Oximetry 97 Oxygen Delivery Me thod Room Air Course Course ED Course: Differential diagnosis at this time includes appendicitis, ovarian cyst, constipation, renal stone, diverticulitis, UTI-her pain is rather nonspecific. For prep includes a CBC that is entirely normal. Chemistries are normal. LFTs are unremarkable. CRP is less than 0.5. Normal lipase. Urine analysis shows concentrated urine that is a poor specimen. Negative test. At this time we discussed possibility of imaging versus watchful waiting and patient feels comfortable monitoring discomfort at this time. Gave her a dose of IV Toradol while she was here which did help. Vital Signs Vital signs: Initial Vital Signs Temperature 98.5 F 06/19/24 13:58 Temperature Source Temporal Artery Scan 06/19/24 13:58 Pulse Rate 61 06/19/24 13:58 Pulse Rhythm Regular 06/19/24 13:58 Respiratory Rate 18 06/19/24 13:58 Blood Pressure 109/66 06/19/24 13:58 Blood Pressure Mean 80 06/19/24 13:58 Blood Pressure Position Sitting 06/19/24 13:58 Pulse Oximetry 97 06/19/24 13:58 Oxygen Delivery Method Room Air 06/19/24 13:58 Vital Signs Temperature 98.5 F 06/19/24 13:58 Pulse Rate 61 06/19/24 13:58 Respiratory Rate 18 06/19/24 13:58 Blood Pressure 109/66 06/19/24 13:58 Pulse Oximetry 97 06/19/24 13:58 Oxygen Delivery Method Room Air 06/19/24 13:58 Temperature 98.5 F 06/19/24 13:58 Pulse Rate 61 06/19/24 13:58 Respiratory Rate 18 06/19/24 13:58 Blood Pressure 109/66 06/19/24 13:58 Pulse Oximetry 97 06/19/24 13:58 Oxygen Delivery Method Room Air 06/19/24 13:58 Medical Decision Making MDM Narrative Medical decision making narrative: 33-year-old female with abdominal pain, unclear etiology. Patient will monitor symptoms at this time. If she gets worse, develops a fever, starts vomiting she will return to the ER. Lab Data Lab results reviewed: Yes I reviewed the patient's lab results Labs: Lab Results 06/19/24 06/19/24 Range/Units 14:10 14:30 WBC 7.57 (4.50-11.00) K/uL RBC 4.22 (4.00-5.20) m/uL Hgb 13.4 (12.0-16.0) gm/dL Hct 40.4 (33.0-51.0) % MCV 96 (80-100) fL MCH 32 (26-34) pg MCHC 33 (32-36) gm/dL RDW Coeff of Elizabeth 11.8 (11.5-15.5) % Plt Count 325 (140-440) K/uL Neut % (Auto) 65.0 (42.0-72.0) % Lymph % (Auto) 26.7 (20-44) % [place] % (Auto) 5.4 (0.0-11.0) % Eos % (Auto) 2.0 (0.0-7.0) % Baso % (Auto) 0.8 (0.0-3.0) % Neut # (Auto) 4.92 (1.7-7.0) K/uL Lymph # (Auto) 2.02 (0.90-2.90) K/uL [place] # (Auto) 0.40 (0.00-0.90) K/UL Eos # (Auto) 0.15 (0.00-0.50) K/uL Baso # (Auto) 0.06 (0.00-0.30) K/uL Abs Immat Gran (auto) 0.01 (0.00-0.30) K/uL Imm/Tot Granulo (auto) 0.1 % Sodium 137 (135-149) mmol/L Potassium 4.1 (3.6-5.1) mmol/L Chloride 107 (96-114) mmol/L Carbon Dioxide 21 (20-32) mmol/L Anion Gap 9 (7-15) mEq/L BUN 12 (5-24) mg/dL Creatinine 0.4 L (0.5-1.5) mg/dL Estimated GFR 136 ml/min Glucose 104 (60-115) mg/dL Lactate 0.7 (0.5-1.9) mmol/L Calcium 9.0 (8.4-10.6) mg/dL Total Bilirubin 0.8 (0.1-1.5) mg/dL Direct Bilirubin 0.2 (0.0-0.5) mg/dL AST 48 H (12-35) U/L ALT 56 H (4-35) U/L Alkaline Phosphatase 84 (40-150) U/L C-Reactive Protein < 0.5 L (0.5-1.0) mg/dL Total Protein 7.3 (6.0-8.3) g/dL Albumin 4.4 (3.3-5.0) g/dL Lipase 94 (23-300) U/L Urine Color Yellow (Yellow) Urine Appearance Slightly Cloudy A (Clear) Urine pH 5.5 (5.0-8.5) Ur Specific [place] >= 1.030 (1.000-1.030) Urine Protein Negative (Negative) Urine Glucose (UA) Negative (Negative) Urine Ketones Negative (Negative) Urine Blood 1+ A (Negative) Urine Nitrite Negative (Negative) Urine Bilirubin Negative (Negative) Urine Urobilinogen 0.2 (0.2-1.0) Ur Leukocyte Esterase 1+ A (Negative) Urine RBC 0-2 (0-2) Urine WBC 5-10 A (0-5) Ur Squamous Epith Cells Many A (None-Few) Urine Bacteria Few A (None) Urine HCG, Qual Negative (Negative) Discharge Plan Discharge Clinical Impression: Abdominal pain Patient Disposition: Home, Self-Care Condition: Stable Additional Instructions: If you develop vomiting, fevers or worsening pain you should return to the emergency room. Otherwise okay to take Tylenol 1000 mg every 6 hours as needed. Okay to use a heating pad to uncomfortable area, 20 minutes at a time, do not apply heat directly to the skin. Prescriptions: No Action ParaGard T 380A 380 square mm intrauterine device 1 device intrauterine ONCE Rx Instructions: as a single dose Follow Up/Referrals: Provider,Not a Local [Primary Care Provider] - Stand Alone Forms: [facility] Info Instructions
[2024-06-19 14:29] LABS: Ur HCG Qualitative* Negative (Negative)
[2024-06-19 14:38] LABS: Lactate* 0.7 mmol/L (0.5-1.9)
--- OUTSIDE RECORDS SUMMARY | 2024-06-19 14:39 | XMS_ITS | Clinical Summary ---
Author Organization [place] Address [facility] [place] [address] Care Team Providers Care Emery Wheel Worker Name Role Phone No Ref-Primary, Physician Primary [...] lb 6.4 oz) 11/16/2022 6:11 P M PHARMACY TECH Height - - Body Mass Index - - Plan of Treatment Health Maintenance Due Date Last Done Comments ADVANCE CARE PLANNING 1992 ANNUAL REVIEW OF HM ORDERS 1992 YEARLY PREVENTIVE VISIT 1992 HIV SCREENING 2007 HEPATITIS C SCREENING 2010 HEPATITIS B IMMUNIZATION (1 of 3 - 19+ 3-dose series) 2011 PAP 2013 DTAP/TDAP/TD IMMUNIZATION (1 - Tdap) 2017 PHQ-2 (once per calendar year) 2023 COVID-19 Vaccine (1 - 2023-2 5 season) 2024 INFLUENZA VACCINE (#1) 2024 RSV VACCINE (1 - 1-dose 75+ series) 2067 HPV IMMUNIZATION Aged Out No longer e [...] Advance Directives For more information, please contact: [phone] * Full Code (Latest Code Status on File) Date Activated Date Inactivated Comments 11/16/2022 1:11 AM 11/17/2022 1:53 PM All basic an d advanced life-sustaining interventions are performed as appropriate Question Answer Comments Code status determined by: Discussion with patie nt/ legal decision maker Care Teams Emery Wheel Worker Relationship Specialty Start Date End Date No Ref-Primary, Physician PCP - General 03/30/22
--- OUTSIDE RECORDS SUMMARY | 2024-06-19 14:39 | XMS_ITS | Referral Summary ---
Author Organization [place] Address [facility] 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
[2024-06-19 14:41] LABS: Appearance Urine Slightly Cloudy (Clear); Bilirubin Urine Negative (Negative); Blood Urine 1+ (Negative); Color Urine Yellow (Yellow); Glucose Urine Negative (Negative); Ketones Urine Negative (Negative); Leukocyte Esterase Urine 1+ (Negative); Nitrite Urine Negative (Negative); Protein Urine Negative (Negative); Specific Gravity Urine >= 1.030 (1.000-1.030); Urobilinogen Urine 0.2 (0.2-1.0); pH Urine 5.5 (5.0-8.5)
[2024-06-19 14:43] LABS: Bacteria Urine Few; RBC Urine 0-2 (0-2); Squamous Epithelial Cell Urine Many (None-Few)
[2024-06-19 14:49] LABS: Basophils Absolute Auto 0.06 K/uL (0.00-0.30); Basophils Percent Auto 0.8 % (0.0-3.0); Eosinophils Absolute Auto 0.15 K/uL (0.00-0.50); Hematocrit 40.4 % (33.0-51.0); Hemoglobin* 13.4 gm/dL (12.0-16.0); Immature Granulocytes Abs Auto 0.01 K/uL (0.00-0.30); Immature Granulocytes Pct Auto 0.1 %; Lymphocytes Absolute Auto 2.02 K/uL (0.90-2.90); Lymphocytes Percent Auto 26.7 % (20-44); Mean Corpuscular HGB Conc 33 gm/dL (32-36); Mean Corpuscular Hemoglobin 32 pg (26-34); Mean Corpuscular Volume 96 fL (80-100); Monocytes Percent Auto 5.4 % (0.0-11.0); Neutrophils Absolute Auto 4.92 K/uL (1.7-7.0); Platelet Count* 325 K/uL (140-440); RDW Coefficient of Variation % 11.8 % (11.5-15.5); Red Blood Count 4.22 m/uL (4.00-5.20); White Blood Count* 7.57 K/uL (4.50-11.00)
[2024-06-19 14:52] LABS: Slide Review Reflex No
[2024-06-19 15:06] LABS: Albumin* 4.4 g/dL (3.3-5.0); Chloride* 107 mmol/L (96-114); Sodium* 137 mmol/L (135-149)
[2024-06-19 15:07] LABS: Potassium* 4.1 mmol/L (3.6-5.1)
[2024-06-19 15:09] LABS: Creatinine* 0.4 mg/dL (0.5-1.5); Estimated Glomerular Filt Rate 136 ml/min
[2024-06-19 15:10] LABS: Alanine Aminotransferase* 56 U/L (4-35); Alkaline Phosphatase* 84 U/L (40-150); Anion Gap 9 mEq/L (7-15); Aspartate Amino Transferase* 48 U/L (12-35); Bilirubin Direct* 0.2 mg/dL (0.0-0.5); Bilirubin Total* 0.8 mg/dL (0.1-1.5); Blood Urea Nitrogen* 12 mg/dL (5-24); Carbon Dioxide* 21 mmol/L (20-32); Glucose* 104 mg/dL (60-115); Lipase* 94 U/L (23-300); Total Protein* 7.3 g/dL (6.0-8.3)
[2024-06-19 15:14] LABS: C Reactive Protein* < 0.5 mg/dL (0.5-1.0)
[2024-06-19] MEDS: KETOROLAC 30 MG/ML inj IVP (15:32)
== END 2024-06-19 15:56 | disposition home or self-care (01) ==
PROVIDERS: Emergency Provider Family Medicine
DX: R10.11 Right upper quadrant pain (principal)
CPT/HCPCS: 36415; 80048; 80076; 81001; 81025; 83605; 83690; 85025; 86140; 87086; 96374; 99283; 99284; A9270; J1885

== ENCOUNTER 2025-01-30 19:55 | Emergency (ER) | payer MEDICAID, SELFPAY ==
--- OUTSIDE RECORDS SUMMARY | 2025-01-30 19:57 | XMS_ITS | Clinical Summary ---
Author Organization [place] Address [address] [place], [place] [address] [address] Care Team Providers Care Drafting Engineer Name Role Phone No Ref-Primary, Physician Primary Care Provider Allergies Active Allergy Reactions Criticality Noted Date Comments Penicillins 03/30/2022 Medications metoclopramide (REGLAN) 10 MG tablet Take 1 tablet (10 mg) by mouth 4 times daily as needed (nausea) 15 tablet 03/05/2023 Active Social History Tobacco Use Types Packs/Day Years Used Date Smoking Tobacco: Never Assessed Adolescent Education Answer Date Record ed Getting School Help Needed Not on file 06/15 Comments Unknown Sex and Gender Information Value Date Recorded Sex Assigned at Not on file Legal Sex Female 6:50 AM CDT Gender Identity Not on file Sexual Orientation Not on file Last Filed Vital Signs Vital Sign Reading Time Taken Comments Blood Pressure 102/52 03/05/2023 11:00 PM CDT Pulse 91 03/05/2023 11:00 PM CDT Temperature 37.4 C (99.4 F) 03/05/2023 6:18 PM CDT Respiratory Rate 18 03/05/2023 6:18 PM CDT Oxygen Saturation 97% 03/05/2023 9:27 PM CDT Inhaled Oxygen Concentration - - Weight 72.3 kg (159 lb 6.4 oz) 11/16/2022 6: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 Height - - Body Mass Index - - Plan of Treatment Health Maintenance Due Date Last Done Comments ADVANCE CARE PLANNING 1992 ANNUAL REVIEW OF HM ORDERS 1992 YEARLY PREVENTIVE VISIT 1995 HIV SCREENING 2007 HEPATITIS C SCREENING 2010 HEPATITIS B IMMUNIZATION (1 of 3 - 19+ 3-dose series) 2011 PAP 2013 DTAP/TDAP/TD IMMUNIZATION (1 - Tdap) 2017 COVID-19 Vaccine (1 - 2023-2 5 season) 2024 PHQ-2 (once per calendar year) 2024 INFLUENZA VACCINE (Season Ended) 2025 ZOSTER IMMUNIZATION (1 of 2) 2042 HPV IMMUNIZATION Aged Out No longer e ligible based on patient's age to complete this topic MENINGITIS IMMUNIZATION Aged Out No l onger eligible based on patient's age to complete this topic Pneumococcal Vaccine: Pediat rics (0 to 5 Years) and At-Risk Patients (6 to 49 Years) Aged Out No longer eligi ble based on patient's age to complete this topic Advance Directives For more information, please contact: [phone] * Full Code (Latest Code Status on File) Date Activated Date Inactivated Comments 11/16/2022 1:11 AM 11/17/2022 1:53 PM All basic an d advanced life-sustaining interventions are performed as appropriate Question Answer Comments Code status determined by: Discussion with patie nt/ legal decision maker Care Teams Drafting Engineer Relationship Specialty Start Date End Date No Ref-Primary, Physician PCP - General 03/30/22
[2025-01-30 20:00] VITALS: BP 114/76; PULSE 64; RESP 16; TEMP 36.7; O2SAT 98
--- NOTE | 2025-01-30 20:07 | ED_ITS ---
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 states around 1500 doing eye lashes and something got into R eye and is now reddened . did wash with water then got eye drops from gas station. no relief. 34-year-old woman presenting to the emergency department with concern of pain in her right eye. Was apparently placing mascara when something apparently got in. She was worried that it was dirty and may have got a ?rock. No foreign body clearly noted. Tried some eyedrops after rinsing her eye. Is very uncomfortable. No forceful trauma otherwise. Related Data Home Medications ?Medication ?Instructions ?Recorded ?Confirmed copper 380 square mm intrauterine 1 device intrauterine ONCE 02/12/24 03/02/24 device (ParaGard T 380A) Allergies Allergy/AdvReac Type Severity Reaction Status Date / Time acetaminophen AdvReac Unknown Rash Verified 06/19/24 13:58 Review of Systems Status of ROS: Reports: 6 or more systems reviewed and unremarkable except as noted in History and below [facility] Medical History Pyelonephritis ?N12 - Tubulo-interstitial nephritis, not specified as acute or chronic (ICD- 10) NVD (normal vaginal delivery) ?O80 - Encounter for full-term uncomplicated delivery (ICD-10) Family History Mother Diabetes High blood pressure Maternal Grandfather Diabetes High blood pressure Social History What is your current living situation?: I presently have a place to live Problems where you live: no known problems Problems where you live details: n/a In the past 12 months, utilities in danger of being shut off: no In past 12 months, lack of transportation kept you from medical appts, meetings, work, or getting things needed for daily living: no In the past 12 mos, have been you worried that your food would run out before you had money to buy more?: never true In the past 12 mos, the food you bought just didn't last and you didn't have money to buy more?: never true Highest level of school completed/degree received: 9th grade Smoking Status: Former smoker Do you use any of these nicotine containing products: None Second hand tobacco smoke exposure: No How often do you have a drink containing alcohol: never How often do you have six or more drinks on one occasion: Never AUDIT-C Alcohol total score: 0 Non-prescribed substance use: denies use Caffeine: No How often does anyone, including family, friends and others, physically hurt you : never How often does anyone, including family, friends and others, insult or talk down to you: never How often does anyone, including family, friends and others, threaten you with harm: never How often does anyone, including family, friends and others, scream or curse at you: never service: No Exam Narrative: Exam Narrative: Breathing easily. Clearly uncomfortable. Favoring the right eye. Mild conjunctival injection. No significant swelling noted. Pupils are equal at 3- 4mm and appropriately reactive. No hyphema noted. I do place tetracaine. Retraction/inversion of eyelids does not reveal any foreign body. Placing fluorescein dye and examination under blue light reveals 4 mm irregular somewhat circular abrasion in the right upper sclera where she has been indicating irritation as well as a smaller spot in the lower outer sclera. Again no foreign body identified. No corneal laceration noted. Const: Vital Signs, click to edit/add: Vital Signs - 24 hr 01/30/25 20:00 Temperature 98.1 F Pulse Rate [Pulse Oximeter] 64 Respiratory Rate 16 Blood Pressure [Ri ght Upper Arm] 114/76 Pulse Oximetry 98 Oxygen Delivery Me thod Room Air Documenting provider has reviewed patient's vital signs: yes Course Vital Signs Vital signs: Initial Vital Signs Temperature 98.1 F 01/30/25 20:00 Temperature Source Temporal Artery Scan 01/30/25 20:00 Pulse Rate 64 01/30/25 20:00 Respiratory Rate 16 01/30/25 20:00 Blood Pressure 114/76 01/30/25 20:00 Blood Pressure Mean 88 01/30/25 20:00 Blood Pressure Position Sitting 01/30/25 20:00 Pulse Oximetry 98 01/30/25 20:00 Oxygen Delivery Method Room Air 01/30/25 20:00 Vital Signs Temperature 98.1 F 01/30/25 20:00 Pulse Rate 64 01/30/25 20:00 Respiratory Rate 16 01/30/25 20:00 Blood Pressure 114/76 01/30/25 20:00 Pulse Oximetry 98 01/30/25 20:00 Oxygen Delivery Method Room Air 01/30/25 20:00 Temperature 98.1 F 01/30/25 20:00 Pulse Rate 64 01/30/25 20:00 Respiratory Rate 16 01/30/25 20:00 Blood Pressure 114/76 01/30/25 20:00 Pulse Oximetry 98 01/30/25 20:00 Oxygen Delivery Method Room Air 01/30/25 20:00 Medical Decision Making MDM Narrative Medical decision making narrative: I think had probably a clump of mascara fell into her eye resulting in rubbing to the eye that abraded the sclera. I discussed vxdd-bci-ugeeekd ointments and lubricating drops it would be available. We do however have erythromycin ointment here that could serve the same purpose. I discussed options. They would prefer to receive this erythromycin ointment here although I think the benefit is primarily lubricating than needing the antibiotic. Placed another drop of tetracaine and then the erythromycin ointment and provided this upon discharge. Discussed options for pain control as well. See patient discharge plan for further discussion Can take 600 mg of ibuprofen 3-4 times daily for pain. I am also prescribing a small quantity of [place], an opiate, as discussed from [facility]. In addition to the erythromycin ointment that you are receiving here, you can purchase some xugx-vdn-ukwjnbs lubrication that you can put in whenever you want to in the form of generic or brand name eye ointment, Refresh P.M. eyedrops or Lacri-Lube eye drops. Watch for marked increase in pain, increasing redness and swelling around dry, purulent drainage (this means though much more than crusty eyes in the morning) Puede juan antonio 600 mg de ibuprofeno 3-4 veces al d?a para el dolor. Tambi?n le estoy recetando mary kate rickie?a cantidad de [place], un opi?threading machine feeder automatic, osvaldo se mencion? en [facility]. Adem?s del steve?ento de eritromicina que recibe aqu?, puede comprar un lubricante sin receta que puede aplicar cuando lo desee, ya sea un steve?ento oft?lmico gen?rico o de kashif ly oft?lmicas Refresh P.M. o gotas oft?lmicas Lacri- Lube. Est? atento a un aumento marcado del dolor, aumento del enrojecimiento y la hinchaz?n alrededor de la secreci?n seca y purulenta (esto significa mucho m?s que ojos con costras por la ma?gloria). Medical Records Medical records reviewed: Yes I reviewed the patient's medical records Discharge Plan Discharge Clinical Impression: Abrasion of sclera of right eye Patient Disposition: Home w/ Parent or Adult Condition: Stable Additional Instructions: Can take 600 mg of ibuprofen 3-4 times daily for pain. I am also prescribing a small quantity of [place], an opiate, as discussed from [facility]. In addition to the erythromycin ointment that you are receiving here, you can purchase some jyyg-fww-krzchhz lubrication that you can put in whenever you want to in the form of generic or brand name eye ointment, Refresh P.M. eyedrops or Lacri-Lube eye drops. Watch for marked increase in pain, increasing redness and swelling around dry, purulent drainage (this means though much more than crusty eyes in the morning) Puede juan antonio 600 mg de ibuprofeno 3-4 veces al d?a para el dolor. Tambi?n le estoy recetando mary kate rickie?a cantidad de [place], un opi?threading machine feeder automatic, osvaldo se mencion? en [facility]. Adem?s del steve?ento de eritromicina que recibe aqu?, puede comprar un lubricante sin receta que puede aplicar cuando lo desee, ya sea un steve?ento oft?lmico gen?rico o de malachi, gotas oft?lmicas Refresh P.M. o gotas oft?lmicas Lacri- Lube. Est? atento a un aumento marcado del dolor, aumento del enrojecimiento y la hinchaz?n alrededor de la secreci?n seca y purulenta (esto significa mucho m?s que ojos con costras por la ma?gloria). Prescriptions: No Action ParaGard T 380A 380 square mm intrauterine device 1 device intrauterine ONCE Rx Instructions: as a single dose Follow Up/Referrals: Provider,Not a Local [Primary Care Provider] - Stand Alone Forms: MyHealth Info Instructions
--- OUTSIDE RECORDS SUMMARY | 2025-01-30 20:56 | XMS_ITS | Clinical Summary ---
Author Organization [facility] Address [address] [place], [place] 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
== END 2025-01-30 20:58 | disposition home or self-care (01) ==
LOC: ED 20:55
PROVIDERS: Emergency Provider Family Medicine
DX: S05.8X1A Other injuries of right eye and orbit, initial encounter (principal); X58.XXXA Exposure to other specified factors, initial encounter; Y93.89 Activity, other specified
CPT/HCPCS: 99283; 99284